=== PATIENT | female | born 1955 | race African-American/Black ===

== ENCOUNTER 2016-06-16 15:32 | Inpatient (IN) ==
[2016-06-16] MEDS ORDERED: MAGNESIUM SULF RIDER 2 GM in PREMIX 1 EACH IV PRN (17:09)
[2016-06-16] MEDS ORDERED: ACETAMINOPHEN 325 MG TABLET PO PRN (17:09)
[2016-06-16] MEDS ORDERED: guaiFENesin/DM ER 600-30 MG TABLET PO PRN (17:09)
[2016-06-16] MEDS ORDERED: BISACODYL 5 MG TABLET PO PRN (17:09)
[2016-06-16] MEDS ORDERED: DOCUSATE SODIUM 100 MG CAPSULE PO PRN (17:09)
[2016-06-16] MEDS ORDERED: MAGNESIUM SULF RIDER 4 GM in PREMIX 1 EACH IV PRN (17:09)
[2016-06-16] MEDS ORDERED: ONDANSETRON 4 MG/2 ML VIAL IV PRN (17:09)
[2016-06-16] MEDS ORDERED: GLUCAGON 1 MG VIAL IM PRN (17:14)
[2016-06-16] MEDS ORDERED: DEXTROSE 50% 25 GM/50 ML VIAL IV PRN (17:14)
[2016-06-16] MEDS ORDERED: ENOXAPARIN 40 MG/0.4 ML SYRINGE SUBCUT SCH (17:30)
[2016-06-16] MEDS ORDERED: PROMETHAZINE 25 MG TABLET PO PRN (17:33)
--- NOTE | 2016-06-16 17:45 | Event Note ---
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 She is on chronic anticoagulation with warfarin. She states that she was sent over from the office today for worsening symptoms I reviewed Dr. Grande's note. I was called to be notified by the nurses that the patient was admitted to me and there was no IV access. I came saw and examined the patient. I have reviewed the data available at this time there is a suboptimal chest x-ray where most of the lung zepeda are not well seen but I do not see a lot of pulmonary edema is impressive cardiomegaly. All her labs are pending. She states she has been taking her medications. I cannot assess JVP due to body habitus she does not have lower extremity edema. She has known subclavian vein stenosis previously had an ICD placed by Dr. Dale. She is tachypneic and has resting tachycardia. She states that she is having some mild substernal chest discomfort. She states she initially thought it was the heart monitor that was sitting on her but she now thinks it may be something more. At this time we do not have IV access I will consult interventional radiology for a PICC line. Hopefully can be done this evening if not we will increase her medications. I think we must consider the fact that she could have potentially had pulmonary embolism she is at high risk. I will wait and see what her INR is. If it is subtherapeutic, probably would recommend CT scanning. I will also check a blood gas. Brief physical exam I do not hear any rhonchi. Rales are also not audible. She does not have lower extremity edema I cannot assess JVD she has a resting tachycardia and her PMI is obviously laterally displaced. Her abdominal exam is soft chest wall pain is not reproducible. She has advanced rheumatoid arthritis which is a challenge as well. She is on methotrexate which he broadens the diagnosis of potential problems.
[2016-06-16 18:09] LABS: ABG Base Excess -1.2 MMOL/L (-2.5-2.5); ABG HCO3 23.4 MMOL/L (20-26); ABG Oxygen Saturation 96.4 % (95-100); ABG PCO2 26.3 MM HG (35-48); ABG PH 7.496 (7.35-7.45); ABG PO2 80.4 MM HG (80-95); ABG TCO2 17.1 MMOL/L (23-27)
[2016-06-16] MEDS: FUROSEMIDE 40 MG/4 ML VIAL IV SCH (18:21)
--- NOTE | 2016-06-16 18:50 | XRay Report ---
XR chest 1V portable Indication: Shortness of breath. Chest one view: Comparison 12/17/15. Cardiomegaly is worse than previous with stable AICD. Hilar prominence again noted. Increased reticular markings of the lungs noted, likely mild edema. Left lung base is obscured, in part due to obesity. It is difficult to exclude infiltrate. Impression: CHF decompensation. Cannot exclude left basilar pneumonia. PROCEDURE INTERPRETED AT [facility] DEPARTMENT OF RADIOLOGY Final Report Signed by: Aman Nguyen M.D.
[2016-06-16] MEDS ORDERED: metOLazone 5 MG TABLET PO SCH (19:00)
[2016-06-16 19:27] LABS: Albumin 4.3 G/DL (3.4-5.0); Bilirubin,Total 1.2 MG/DL (0.2-1.0); Calcium 9.6 MG/DL (8.5-10.1); Magnesium 2.2 MG/DL (1.8-2.4); Osmolality,Calculated 286.5 MOS/KG (273-304); Potassium 3.9 MMOL/L (3.5-5.1); Total Protein 7.8 G/DL (6.4-8.3)
[2016-06-16 20:51] LABS: INR 1.4; PT Patient Result 14.8 SECS
[2016-06-16] MEDS: HYDROXYCHLOROQUINE 200 MG TABLET PO SCH (21:13)
[2016-06-16] MEDS: MAGNESIUM OXIDE 400 MG TABLET PO SCH ×2 (21:13→21:14)
[2016-06-16] MEDS: POTASSIUM CHLORIDE 20 MEQ TABLET PO SCH (21:13)
[2016-06-16] MEDS: NORTRIPTYLINE 25 MG CAPSULE PO SCH (21:13)
[2016-06-16] MEDS: SPIRONOLACTONE 25 MG TABLET PO SCH (21:13)
[2016-06-16] MEDS: INSULIN REGULAR 100 UNIT/ML SUBCUT SCH (21:14)
[2016-06-16] MEDS: oxyCODONE IR 5 MG TABLET PO PRN (21:29)
[2016-06-16] MEDS: ALPRAZolam 0.5 MG TABLET PO PRN (21:29)
[2016-06-16 22:38] LABS: Apearance,Urine CLEAR (Clear); Bacteria,Urine Occasional /HPF (Few); Bilirubin,Urine Negative (Negative); Blood, Urine Negative (Negative); Glucose,Urine (UA) Negative (Negative); Hyaline Casts,Urine 14 /LPF (0-3); Ketones,Urine Negative (Negative); Mucus,Urine Occasional /LPF (Occasional); Nitrite,Urine Negative (Negative); Protein,Urine Negative; RBC,Urine <1 /HPF (0-4); Squamous Epithelial Cell,Urine Occasional /HPF (0-10); Urine Color Yellow (Yellow); Urine Specific Gravity 1.006 (1.001-1.035); Urine Urobilinogen < 2.0 EU/DL (0.2-1.0); WBC,Urine <1 /HPF (0-6)
[2016-06-16] MEDS: WARFARIN 7.5 MG TABLET PO SCH (23:06)
[2016-06-17] MEDS: ZALEPLON 5 MG CAPSULE PO PRN ×2 (00:59→21:50)
[2016-06-17 05:27] LABS: Albumin 3.7 G/DL (3.4-5.0); Bilirubin,Total 1.1 MG/DL (0.2-1.0); Calcium 8.7 MG/DL (8.5-10.1); Magnesium 2.1 MG/DL (1.8-2.4); Osmolality,Calculated 288.3 MOS/KG (273-304); Risk Ratio 3.34; Total Protein 6.7 G/DL (6.4-8.3); VLDL CHOLESTEROL 27.4 MG/DL
--- NOTE | 2016-06-17 07:13 | EKG Report ---
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
[2016-06-17] MEDS ORDERED: OMEPRAZOLE 20 MG CAPSULE PO SCH (09:00)
[2016-06-17] MEDS: FUROSEMIDE 40 MG/4 ML VIAL IV SCH ×2 (09:12→15:50)
[2016-06-17] MEDS: ESTRADIOL 1 MG TABLET PO SCH (09:12)
[2016-06-17] MEDS: INSULIN REGULAR 100 UNIT/ML SUBCUT SCH ×4 (09:12→21:51)
[2016-06-17] MEDS: DESITIN 4OZ/NYSTATIN 15 GRAM MIXTURE PASTE TOP SCH ×2 (09:12→21:52)
[2016-06-17] MEDS: ALLOPURINOL 100 MG TABLET PO SCH (09:13)
[2016-06-17] MEDS: CHOLECALCIFEROL 1,000 UNIT TABLET PO SCH (09:13)
[2016-06-17] MEDS: POTASSIUM CHLORIDE 20 MEQ TABLET PO SCH ×4 (09:14→21:51)
[2016-06-17] MEDS: PRAVASTATIN 20 MG TABLET PO SCH (09:14)
[2016-06-17] MEDS: SPIRONOLACTONE 25 MG TABLET PO SCH ×2 (09:14→21:51)
[2016-06-17] MEDS: TOPIRAMATE 25 MG TABLET PO SCH (09:14)
[2016-06-17] MEDS: PANTOPRAZOLE 40 MG TABLET PO SCH (09:14)
[2016-06-17] MEDS: HYDROXYCHLOROQUINE 200 MG TABLET PO SCH ×2 (09:14→21:54)
[2016-06-17] MEDS: MAGNESIUM OXIDE 400 MG TABLET PO SCH ×4 (09:15→21:52)
[2016-06-17] MEDS: MELOXICAM 7.5 MG TABLET PO SCH (09:15)
[2016-06-17] MEDS: FOLIC ACID 1 MG TABLET PO SCH (09:15)
[2016-06-17] MEDS: DULoxetine 30 MG CAPSULE PO SCH (09:15)
[2016-06-17] MEDS: NEBIVOLOL 5 MG TABLET PO SCH (09:16)
[2016-06-17] MEDS: POLYETHYLENE GLYCOL POWDER 17 GM PACK PO SCH (09:17)
--- NOTE | 2016-06-17 11:05 | Cardiology Progress Note ---
Cardiology - PN: Subj Interval history: Cardiology note 61-year-old woman with progressive shortness of breath. Patient is 5 feet 9 and weighs 273 pounds. She weighed 350 pounds in January 2016. Patient has obstructive sleep apnea diagnosed in 2003. She is noncompliant with her mask which has broke. History of DVT on chronic Coumadin. INR subtherapeutic 1.4. Chest x-ray shows moderate cardiomegaly CHF. Patient denies fever cough or sputum production. I do not think this is a pneumonia superimposed. BNP level 1470 Patient quit smoking January 30, 2016 but did smoke 1-1-1/2 packs a day since age 22. She has rheumatoid arthritis and takes Plaquenil She is quite sedentary and has limited mobility. EKG shows sinus rhythm with right axis deviation poor R-wave progression ST-T wave changes. Status post ICD. History hypertrophic obstructive cardiomyopathy Blood pressure 116/80 flat neck veins no carotid bruit decreased breath sounds rhonchi in both bases regular rhythm soft systolic ejection murmur upper left sternal border no AI heard both legs are tender but she has rheumatoid arthritis and neuropathy Lab data INR 1.4 Pro time 14.8 Creatinine 1.8 BUN [address] Hollis for CPAP Venous Doppler of the legs IV Lasix Echo Doppler Increase Coumadin Lovenox BMP and pro time/INR in a.m. Exam (Progress Note) - Constitutional Vitals: Period Temp Pulse Resp BP Sys/Fuchs Pulse Ox Last 24 Hr 96.4 F-97.7 F 97-107 18-20 93-138/55-69 90-100 Result/EKG - Labs CBC & BMP: 06/17/16 03:58 Labs: Laboratory Results - last 24 hr 06/16/16 06/16/16 06/16/16 17:32 17:49 18:17 INR PT Patient/Control Mix ABG pH 7.496 H ABG pCO2 26.3 L ABG pO2 80.4 ABG HCO3 23.4 ABG Total CO2 17.1 L ABG O2 Saturation 96.4 ABG Base Excess -1.2 Sodium Potassium Chloride Carbon Dioxide Anion Gap BUN Creatinine GFR Calculation BUN/Creatinine Ratio Glucose POC Glucose 130 H Calculated Osmolality Calcium Magnesium Total Bilirubin AST ALT Alkaline Phosphatase B-Natriuretic Peptide 1354 H Total Protein Albumin Globulin Albumin/Globulin Ratio Triglycerides Cholesterol LDL Cholesterol VLDL Cholesterol HDL Cholesterol Heart Disease Risk Ratio TSH 3rd Generation Urine Color Urine Appearance Urine pH Ur Specific Shepherd Urine Protein Urine Glucose (UA) Urine Ketones Urine Blood Urine Nitrate Urine Bilirubin Urine Urobilinogen Urine Leukocytes Urine RBC Urine WBC Ur Squamous Epith Cells Urine Bacteria Hyaline Casts Urine Mucus Ur Culture Indicated? 06/16/16 06/16/16 06/16/16 18:18 18:18 20:25 INR 1.4 PT Patient/Control Mix 14.8 ABG pH ABG pCO2 ABG pO2 ABG HCO3 ABG Total CO2 ABG O2 Saturation ABG Base Excess Sodium 139 Potassium 3.9 Chloride 99 Carbon Dioxide 25 Anion Gap 18.9 H BUN 34 H Creatinine 2.00 H GFR Calculation 42 BUN/Creatinine Ratio 17.00 Glucose 132 H POC Glucose Calculated Osmolality 286.5 Calcium 9.6 Magnesium 2.2 Total Bilirubin 1.20 H AST 22 ALT 22 Alkaline Phosphatase 132 H B-Natriuretic Peptide Total Protein 7.8 Albumin 4.3 Globulin 3.5 Albumin/Globulin Ratio 1.2 Triglycerides Cholesterol LDL Cholesterol VLDL Cholesterol HDL Cholesterol Heart Disease Risk Ratio TSH 3rd Generation 9.400 H Urine Color Urine Appearance Urine pH Ur Specific Shepherd Urine Protein Urine Glucose (UA) Urine Ketones Urine Blood Urine Nitrate Urine Bilirubin Urine Urobilinogen Urine Leukocytes Urine RBC Urine WBC Ur Squamous Epith Cells Urine Bacteria Hyaline Casts Urine Mucus Ur Culture Indicated? 06/16/16 06/16/16 06/17/16 20:48 21:19 03:58 INR PT Patient/Control Mix ABG pH ABG pCO2 ABG pO2 ABG HCO3 ABG Total CO2 ABG O2 Saturation ABG Base Excess Sodium 141 Potassium 3.0 L Chloride 98 Carbon Dioxide 27 Anion Gap 19.0 H BUN 37 H Creatinine 1.80 H GFR Calculation 48 BUN/Creatinine Ratio 20.00 Glucose 89 POC Glucose 144 H Calculated Osmolality 288.3 Calcium 8.7 Magnesium 2.1 Total Bilirubin 1.10 H AST 11 ALT 21 Alkaline Phosphatase 118 H B-Natriuretic Peptide Total Protein 6.7 Albumin 3.7 Globulin 3.0 Albumin/Globulin Ratio 1.2 Triglycerides 137 Cholesterol 117 LDL Cholesterol 66.0 VLDL Cholesterol 27.4 HDL Cholesterol 35 L Heart Disease Risk Ratio 3.34 TSH 3rd Generation Urine Color Yellow Urine Appearance Clear Urine pH 6.0 Ur Specific Shepherd 1.006 Urine Protein Negative Urine Glucose (UA) Negative Urine Ketones Negative Urine Blood Negative Urine Nitrate Negative Urine Bilirubin Negative Urine Urobilinogen < 2.0 H Urine Leukocytes Negative Urine RBC <1 Urine WBC <1 Ur Squamous Epith Cells Occasional Urine Bacteria Occasional Hyaline Casts 14 Urine Mucus Occasional Ur Culture Indicated? Not indicated 06/17/16 06/17/16 03:58 07:57 INR PT Patient/Control Mix ABG pH ABG pCO2 ABG pO2 ABG HCO3 ABG Total CO2 ABG O2 Saturation ABG Base Excess Sodium Potassium Chloride Carbon Dioxide Anion Gap BUN Creatinine GFR Calculation BUN/Creatinine Ratio Glucose POC Glucose 103 Calculated Osmolality Calcium Magnesium Total Bilirubin AST ALT Alkaline Phosphatase B-Natriuretic Peptide 1470 H Total Protein Albumin Globulin Albumin/Globulin Ratio Triglycerides Cholesterol LDL Cholesterol VLDL Cholesterol HDL Cholesterol Heart Disease Risk Ratio TSH 3rd Generation Urine Color Urine Appearance Urine pH Ur Specific Shepherd Urine Protein Urine Glucose (UA) Urine Ketones Urine Blood Urine Nitrate Urine Bilirubin Urine Urobilinogen Urine Leukocytes Urine RBC Urine WBC Ur Squamous Epith Cells Urine Bacteria Hyaline Casts Urine Mucus Ur Culture Indicated?
[2016-06-17 12:29] LABS: INR 1.3; PT Patient Result 13.9 SECS
[2016-06-17] MEDS: ENOXAPARIN 100 MG/ML SYRINGE SUBCUT SCH (13:11)
--- NOTE | 2016-06-17 13:18 | Ultrasound Report ---
Venous Doppler ultrasound bilateral lower extremities Indication: Swelling, shortness of breath Comparison: None available Findings: No evidence of echogenic, noncompressible thrombus seen in the visualized veins of the extremities. Color Doppler venous waveform pattern is within normal limits. Impression: No evidence of deep venous thrombosis. Ultrasound images stored and captured. PROCEDURE INTERPRETED AT [facility] DEPARTMENT OF RADIOLOGY Final Report Signed by: Dr. Franklyn Patiño
--- NOTE | 2016-06-17 14:25 | Post Interventional Procedure ---
Pre-op diagnosis: No PIV access, obesity Post-op diagnosis: same Procedure: PICC RUE Flouroscopy: 0.5 min Radiologist: Aman Nguyen Anesthesia: local Specimens: none sent Estimated blood loss: none Complications: none Condition: stable Assessment and Plan - Time spent with patient Time spent with patient: Less than 30 minutes
--- NOTE | 2016-06-17 14:39 | Ultrasound Report ---
IR PICC line insertion, US guide vascular access Indication: Obesity. CHF and COPD. IV medication requirements. No peripheral IV access. PICC LINE Description: A formal timeout was performed. Maximum sterile barrier technique was used. Sonographic evaluation of the right upper extremity demonstrates patent and compressible basilic vein. The upper arm was prepped and draped in sterile fashion. 3 cc 1% lidocaine was administered subcutaneously. Under sonographic guidance, a micropuncture needle was advanced into the vein. A captured sonographic image documents the position of the needle. Needle was exchanged over a wire for a peel-away sheath. A dual lumen power PICC, cut to 43 cm, was advanced over the wire until the tip was at the RA-SVC junction. The position of the catheter was confirmed with fluoroscopic guidance and an image stored in PACS. The wire and sheath were removed. Both ports of the PICC were aspirated and flushed with heparinized saline. The device was secured with a StatLock. Fluoroscopy: 0.5 minutes. Impression: PICC line ready for immediate use. Routine catheter care. PROCEDURE INTERPRETED AT [facility] DEPARTMENT OF RADIOLOGY Final Report Signed by: Aman Nguyen M.D.
[2016-06-17] MEDS ORDERED: POTASSIUM CHLORIDE 20 MEQ TABLET PO ONE (15:26)
[2016-06-17] MEDS ORDERED: WARFARIN 5 MG TABLET PO ONE (18:00)
[2016-06-17] MEDS ORDERED: WARFARIN 5 MG TABLET PO SCH (18:00)
[2016-06-17] MEDS: NORTRIPTYLINE 25 MG CAPSULE PO SCH (21:50)
[2016-06-17] MEDS: ALPRAZolam 0.5 MG TABLET PO PRN (21:51)
[2016-06-18] MEDS: ENOXAPARIN 100 MG/ML SYRINGE SUBCUT SCH ×3 (00:43→22:50)
[2016-06-18] MEDS: oxyCODONE IR 5 MG TABLET PO PRN (04:39)
[2016-06-18 05:33] LABS: INR 1.4; PT Patient Result 15.4 SECS
[2016-06-18 06:01] LABS: Osmolality,Calculated 285.8 MOS/KG (273-304)
[2016-06-18] MEDS: INSULIN REGULAR 100 UNIT/ML SUBCUT SCH ×4 (09:13→20:46)
[2016-06-18] MEDS: FUROSEMIDE 40 MG/4 ML VIAL IV SCH ×2 (09:13→17:29)
[2016-06-18] MEDS: PANTOPRAZOLE 40 MG TABLET PO SCH (09:14)
[2016-06-18] MEDS: ESTRADIOL 1 MG TABLET PO SCH (09:15)
[2016-06-18] MEDS: MELOXICAM 7.5 MG TABLET PO SCH (09:15)
[2016-06-18] MEDS: SPIRONOLACTONE 25 MG TABLET PO SCH ×2 (09:15→20:46)
[2016-06-18] MEDS: FOLIC ACID 1 MG TABLET PO SCH (09:16)
[2016-06-18] MEDS: DULoxetine 30 MG CAPSULE PO SCH (09:16)
[2016-06-18] MEDS: MAGNESIUM OXIDE 400 MG TABLET PO SCH ×3 (09:16→20:51)
[2016-06-18] MEDS: POTASSIUM CHLORIDE 20 MEQ TABLET PO SCH ×4 (09:16→20:51)
[2016-06-18] MEDS: CHOLECALCIFEROL 1,000 UNIT TABLET PO SCH (09:16)
[2016-06-18] MEDS: NEBIVOLOL 5 MG TABLET PO SCH (09:17)
[2016-06-18] MEDS: TOPIRAMATE 25 MG TABLET PO SCH (09:17)
[2016-06-18] MEDS: PRAVASTATIN 20 MG TABLET PO SCH (09:18)
[2016-06-18] MEDS: ALLOPURINOL 100 MG TABLET PO SCH (09:18)
[2016-06-18] MEDS: HYDROXYCHLOROQUINE 200 MG TABLET PO SCH ×2 (09:18→20:51)
[2016-06-18] MEDS: DESITIN 4OZ/NYSTATIN 15 GRAM MIXTURE PASTE TOP SCH ×2 (09:19→20:57)
[2016-06-18] MEDS: POLYETHYLENE GLYCOL POWDER 17 GM PACK PO SCH (09:19)
--- NOTE | 2016-06-18 09:57 | Cardiology Progress Note ---
Cardiology - PN: Subj Interval history: Cardiology note 61-year-old woman with progressive shortness of breath with CHF and leg pain. Telemetry shows sinus rhythm O2 sat 95 on 2 L cannula Blood pressure 90/66 Decreased breath sounds but fairly clear Regular rhythm distant tones soft systolic murmur Abdomen soft benign 1+ leg edema Lab data today INR 1.4 Pro time 15.4 Sodium 137 potassium 4.0 chloride 96 CO2 28 BUN 46 creatinine 2.20 glucose 108 Venous Doppler studies of the legs negative for DVT Impression Obstructive sleep apnea diagnosed 2003, noncompliant with CPAP Cardiomegaly and CHF BNP level 1470 Rheumatoid arthritis on Plaquenil Longtime smoker, over 1 pack per day since age 22, just quit January 30, 2016 Status post defibrillator History hypertrophic cardiomyopathy History of DVT on chronic Coumadin Subtherapeutic pro time Plan Dr. Heller has been consulted for untreated obstructive sleep apnea Increasing Coumadin dose and continue Lovenox PT INR in a.m. Echo Doppler DC Bystolic Exam (Progress Note) - Constitutional Vitals: Period Temp Pulse Resp BP Sys/Fuchs Pulse Ox Last 24 Hr 96.5 F-98.4 F 90-105 16-20 84-101/55-80 91-97 Result/EKG - Labs CBC & BMP: 06/18/16 04:29 Labs: Laboratory Results - last 24 hr 06/17/16 06/17/16 06/17/16 11:57 12:07 16:06 INR 1.3 PT Patient/Control Mix 13.9 Sodium Potassium Chloride Carbon Dioxide Anion Gap BUN Creatinine GFR Calculation BUN/Creatinine Ratio Glucose POC Glucose 115 H 132 H Calculated Osmolality Calcium 06/17/16 06/18/16 06/18/16 20:42 04:29 05:20 INR 1.4 PT Patient/Control Mix 15.4 Sodium 137 Potassium 4.0 Chloride 96 L Carbon Dioxide 28 Anion Gap 17.0 H BUN 46 H Creatinine 2.20 H GFR Calculation 37 BUN/Creatinine Ratio 20.00 Glucose 108 H POC Glucose 124 H Calculated Osmolality 285.8 Calcium 9.0
--- NOTE | 2016-06-18 16:30 | ECHO Report ---
Jose CruzTelma Exam Date: 06/17/2016 14:47 Referring Physician: Technologist: Eva Villegas RDCS Age: 61 Ht (in): Wt (lb): Gender: F Exam Location: [facility] Echo Indications: Shortness of breath BP: / HR: Rhythm: Sinus Technical Quality: Average IMPRESSIONS Left ventricular ejection fraction is estimated at 10%. Advanced diastolic dysfunction. Mild left ventricular hypertrophy. Tricuspid regurgitation velocities suggest a PAP of 46 mmHg. Four chamber cardiac enlargement MEASUREMENTS (Male / Female) Normal Values 2D ECHO LV Diastolic Diameter PLAX 6.1 cm 4.2 - 5.9 / 3.9 - 5.3 cm LV Systolic Diameter PLAX 6.0 cm LV Fractional Shortening PLAX 1.6 % IVS Diastolic Thickness 1.1 cm 0.6 - 1.0 / 0.6 - 0.9 cm LVPW Diastolic Thickness 1.1 cm 0.6 - 1.0 / 0.6 - 0.9 cm RV Internal Dim ED PLAX 4.1 cm Aortic Root Diameter 3.5 cm LA Systolic Diameter LX 5.5 cm 3.0 - 4.0 / 2.7 - 3.8 cm DOPPLER TR Peak Velocity 300.0 cm/s TR Peak Gradient 36.0 mmHg FINDINGS Left Ventricle Moderately increased left ventricular cavity size. Mild left ventricular hypertrophy. Left ventricular ejection fraction is estimated at 10%. Advanced diastolic dysfunction. Right Ventricle Mildly increased right ventricular size. Pacemaker wire visualized in the right ventricle. Right Atrium Moderately increased right atrial size. Pacemaker wire in the right atrial cavity. Left Atrium Moderately increased left atrial size. Mitral Valve Thickened mitral valve. Mild mitral annular calcification. Mild mitral valve regurgitation. Aortic Valve Morphologically normal aortic valve without significant sclerosis or stenosis. There is no aortic regurgitation. Tricuspid Valve Morphologically normal tricuspid valve. Mild tricuspid valve regurgitation. Tricuspid regurgitation velocities suggest a PAP of 46 mmHg. Pulmonic Valve Morphologically normal pulmonic valve. Mild pulmonary valve regurgitation. Pericardium Normal pericardium without effusion. Aorta Normal ascending aorta dimension. Kylah Kim (Electronically Signed) Final Date: 17 June 2016 16:37
--- NOTE | 2016-06-18 16:31 | ECHO Report ---
Jose CruzTelma Exam Date: 06/18/2016 11:36 Referring Physician: Technologist: Demetria GARCIA Age: 61 Ht (in): Wt (lb): Gender: F Exam Location: [facility] Echo Indications: ICD, CHF, DM, HTN, Hyperlipidemia, SOB BP: / HR: Rhythm: Sinus Technical Quality: Technically difficult study IMPRESSIONS Severely dilated left ventricle with ejection fraction approximately 15% and global hypokinesis. Grade 3/4 diastolic dysfunction. Four-chamber cardiac enlargement ICD wire seen in the right ventricleTricuspid regurgitation velocities suggest a RVSP of 38 mmHg plus the right atrial pressure. MEASUREMENTS (Male / Female) Normal Values 2D ECHO LV Diastolic Diameter PLAX 6.1 cm 4.2 - 5.9 / 3.9 - 5.3 cm LV Systolic Diameter PLAX 5.1 cm LV Fractional Shortening PLAX 15.7 % IVS Diastolic Thickness 1.9 cm 0.6 - 1.0 / 0.6 - 0.9 cm LVPW Diastolic Thickness 1.7 cm 0.6 - 1.0 / 0.6 - 0.9 cm RV Internal Dim ED PLAX 4.1 cm Aortic Root Diameter 2.9 cm LA Systolic Diameter LX 3.7 cm 3.0 - 4.0 / 2.7 - 3.8 cm DOPPLER TR Peak Velocity 309.0 cm/s TR Peak Gradient 38.2 mmHg FINDINGS Left Ventricle Severely dilated left ventricle with ejection fraction approximately 15% and global hypokinesis. Grade 3/4 diastolic dysfunction. Right Ventricle Moderately increased right ventricular size. Right Atrium Moderately increased right atrial size. Left Atrium Moderately increased left atrial size. Mitral Valve Mildly thickened mitral valve with mild - moderate mitral regurgitation. Aortic Valve Aortic valve sclerosis without stenosis or regurgitation. Tricuspid Valve Morphologically normal tricuspid valve. [id number] tricuspid valve regurgitation. Tricuspid regurgitation velocities suggest a RVSP of 38mmHg + RAP. Pulmonic Valve Pulmonic valve not well visualized. [id number] pulmonary valve regurgitation. Pericardium No pericardial effusion. Aorta Normal size aortic root and proximal ascending aorta. Kylah Kim (Electronically Signed) Final Date: 18 June 2016 15:07
[2016-06-18] MEDS ORDERED: WARFARIN 5 MG TABLET PO ONE (18:00)
[2016-06-18] MEDS: ALPRAZolam 0.5 MG TABLET PO PRN (20:50)
[2016-06-18] MEDS: ZALEPLON 5 MG CAPSULE PO PRN (20:50)
[2016-06-18] MEDS: NORTRIPTYLINE 25 MG CAPSULE PO SCH (20:51)
[2016-06-19] MEDS: ZALEPLON 5 MG CAPSULE PO PRN (00:52)
[2016-06-19 05:08] LABS: INR 1.7; PT Patient Result 18.2 SECS
[2016-06-19 05:44] LABS: Calcium 9.1 MG/DL (8.5-10.1)
--- NOTE | 2016-06-19 08:57 | Cardiology Progress Note ---
Cardiology - PN: Subj Interval history: Cardiology note 61-year-old woman with progressive shortness of breath with CHF and leg pain. Telemetry shows a sinus rhythm in the 80s Blood pressure 100/60 in the left arm by me O2 sat 98 on 2 L Decreased breath sounds few rhonchi Regular rhythm faint systolic murmur upper right sternal border Abdomen soft benign Trace leg edema Echo Doppler by Dr. 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 Status post defibrillator. History of DVT on chronic Coumadin with subtherapeutic pro time on admission Chronic renal failure. Baseline creatinine 2.2 BUN 46 on June 18, 2016. Creatinine today is up to 3.[address] Hollis has been consulted for untreated obstructive sleep apnea BMP in a.m. and pro time INR DC spironolactone Lasix holiday today and reassess tomorrow. Increasing Coumadin dose and continue Lovenox Exam (Progress Note) - Constitutional Vitals: Period Temp Pulse Resp BP Sys/Fuchs Pulse Ox Last 24 Hr 96.6 F-97.9 F 95-100 18-20 80-124/42-75 96-100 Result/EKG - Labs CBC & BMP: 06/19/16 04:00 Labs: Laboratory Results - last 24 hr 06/18/16 06/18/16 06/18/16 07:42 11:26 15:55 INR PT Patient/Control Mix Sodium Potassium Chloride Carbon Dioxide Anion Gap BUN Creatinine GFR Calculation BUN/Creatinine Ratio Glucose POC Glucose 103 173 H 150 H Calculated Osmolality Calcium 06/18/16 06/19/16 06/19/16 19:28 04:00 04:00 INR 1.7 PT Patient/Control Mix 18.2 Sodium 136 Potassium 5.0 Chloride 96 L Carbon Dioxide 26 Anion Gap 19.0 H BUN 56 H D Creatinine 3.00 H GFR Calculation 26 BUN/Creatinine Ratio 18.00 Glucose 121 H POC Glucose 121 H Calculated Osmolality 288.0 Calcium 9.1
[2016-06-19] MEDS: INSULIN REGULAR 100 UNIT/ML SUBCUT SCH ×4 (09:18→20:56)
[2016-06-19] MEDS: SPIRONOLACTONE 25 MG TABLET PO SCH ×2 (09:19→20:56)
[2016-06-19] MEDS: DULoxetine 30 MG CAPSULE PO SCH (09:20)
[2016-06-19] MEDS: CHOLECALCIFEROL 1,000 UNIT TABLET PO SCH (09:20)
[2016-06-19] MEDS: PRAVASTATIN 20 MG TABLET PO SCH (09:20)
[2016-06-19] MEDS: PANTOPRAZOLE 40 MG TABLET PO SCH (09:20)
[2016-06-19] MEDS: POTASSIUM CHLORIDE 20 MEQ TABLET PO SCH ×5 (09:20→20:56)
[2016-06-19] MEDS: HYDROXYCHLOROQUINE 200 MG TABLET PO SCH ×2 (09:21→20:57)
[2016-06-19] MEDS: MAGNESIUM OXIDE 400 MG TABLET PO SCH ×2 (09:21→20:56)
[2016-06-19] MEDS: MELOXICAM 7.5 MG TABLET PO SCH (09:21)
[2016-06-19] MEDS: ESTRADIOL 1 MG TABLET PO SCH (09:21)
[2016-06-19] MEDS: TOPIRAMATE 25 MG TABLET PO SCH (09:21)
[2016-06-19] MEDS: FOLIC ACID 1 MG TABLET PO SCH (09:21)
[2016-06-19] MEDS: DESITIN 4OZ/NYSTATIN 15 GRAM MIXTURE PASTE TOP SCH ×2 (09:22→20:57)
[2016-06-19] MEDS: POLYETHYLENE GLYCOL POWDER 17 GM PACK PO SCH (09:22)
[2016-06-19] MEDS: ALLOPURINOL 100 MG TABLET PO SCH (09:23)
[2016-06-19] MEDS: FUROSEMIDE 40 MG/4 ML VIAL IV SCH (11:20)
[2016-06-19] MEDS: ENOXAPARIN 100 MG/ML SYRINGE SUBCUT SCH (13:43)
[2016-06-19] MEDS: WARFARIN 7.5 MG TABLET PO SCH (17:12)
[2016-06-19] MEDS ORDERED: WARFARIN 5 MG TABLET PO ONE (18:00)
[2016-06-19] MEDS: NORTRIPTYLINE 25 MG CAPSULE PO SCH (20:57)
[2016-06-20] MEDS: ALPRAZolam 0.5 MG TABLET PO PRN ×2 (00:26→20:57)
[2016-06-20] MEDS: ENOXAPARIN 100 MG/ML SYRINGE SUBCUT SCH ×2 (00:26→13:32)
[2016-06-20 05:45] LABS: INR 2.6
[2016-06-20 05:54] LABS: PT Patient Result 28.7 SECS
[2016-06-20 06:04] LABS: Calcium 9.3 MG/DL (8.5-10.1); Magnesium 3.1 MG/DL (1.8-2.4); Osmolality,Calculated 286.2 MOS/KG (273-304); Potassium 5.4 MMOL/L (3.5-5.1)
[2016-06-20] MEDS: CHOLECALCIFEROL 1,000 UNIT TABLET PO SCH (09:40)
[2016-06-20] MEDS: POLYETHYLENE GLYCOL POWDER 17 GM PACK PO SCH (09:40)
[2016-06-20] MEDS: MELOXICAM 7.5 MG TABLET PO SCH (09:41)
[2016-06-20] MEDS: DULoxetine 30 MG CAPSULE PO SCH (09:41)
[2016-06-20] MEDS: HYDROXYCHLOROQUINE 200 MG TABLET PO SCH ×2 (09:41→20:54)
[2016-06-20] MEDS: PANTOPRAZOLE 40 MG TABLET PO SCH (09:42)
[2016-06-20] MEDS: ALLOPURINOL 100 MG TABLET PO SCH (09:42)
[2016-06-20] MEDS: FOLIC ACID 1 MG TABLET PO SCH (09:42)
[2016-06-20] MEDS: PRAVASTATIN 20 MG TABLET PO SCH (09:42)
[2016-06-20] MEDS: DESITIN 4OZ/NYSTATIN 15 GRAM MIXTURE PASTE TOP SCH ×2 (09:43→20:58)
[2016-06-20] MEDS: ESTRADIOL 1 MG TABLET PO SCH (09:43)
[2016-06-20] MEDS: MAGNESIUM OXIDE 400 MG TABLET PO SCH ×2 (09:46→20:55)
[2016-06-20] MEDS: POTASSIUM CHLORIDE 20 MEQ TABLET PO SCH ×4 (09:46→20:55)
[2016-06-20] MEDS: INSULIN REGULAR 100 UNIT/ML SUBCUT SCH ×4 (09:47→20:55)
[2016-06-20] MEDS: SPIRONOLACTONE 25 MG TABLET PO SCH ×2 (09:47→21:50)
[2016-06-20] MEDS: TOPIRAMATE 25 MG TABLET PO SCH (09:47)
--- NOTE | 2016-06-20 12:16 | Sleep Medicine Consult ---
Assessment and Plan (1) Obstructive sleep apnea Status: Acute Assessment and plan: Her say will need to be reevaluated. She has lost approximately 80 pounds since her diagnosis. She also now has a severe cardiomyopathy. She does continue to snore but it does not seem to be as bad as it has been in the past. She certainly could have underlying central sleep apnea. We will start with HST evaluation tonight and follow-up on those results. Current Visit: Yes (2) Hypertension Status: Chronic Assessment and plan: The prevalence rate for obstructive sleep apnea patients with hypertension is 35 %. That rate can be as high as 80% in patients who require 4 or more medications for blood pressure control. Current Visit: No (3) Diabetes Status: Chronic Assessment and plan: The prevalence rate for obstructive sleep apnea in patients with type 2 diabetes can be as high as 86%. Those patients with moderate to severe obstructive sleep apnea are at a greater risk for diabetic nephropathy and neuropathy. Compliance with CPAP therapy for these patients can lead to improvement in glycemic control and improvement in insulin sensitivity. Current Visit: No (4) CHF (congestive heart failure) Status: Acute Assessment and plan: Although CHF can be associated with both obstructive and central sleep apnea, the latter can be refractory to CPAP therapy and may require BiPAP. With the severity of her cardiomyopathy, she would not be a candidate for ASV therapy for primary central sleep apnea. If she still has predominantly obstructive sleep apnea, there is the potential that with CPAP therapy, we could see improvement in her ejection fraction and as well improvement symptomatically. CPAP therapy for CHF has been shown to decrease readmission rate related to CHF. We will start her evaluation with HST tonight and follow up at the [facility] sleep center with titration is indicated or further evaluation if necessary. Current Visit: No Qualifiers: Congestive heart failure type: systolic Congestive heart failure chronicity : acute on chronic Qualified Code(s): I50.23 - Acute on chronic systolic ( congestive) heart failure History of Present Illness Chief complaint: sleep apnea History of present illness: Ms. Billingsley is a 61 year old female with a remote history of obstructive sleep apnea diagnosed over 10 years ago. She was also CPAP for. Time and her machine quit. She has been without therapy since 2004. She is admitted now with problems related to severe cardiomyopathy and has an ejection fraction of less than 15% and evidence of pulmonary hypertension. She is treated with nocturnal O2 therapy that was prescribed by her primary care physician, Dr. Nick Collado. She does describe a history of snoring and abnormal breathing during sleep. She has nocturia as well, awakening up to 45 times a night to urinate. She has a delayed sleep schedule, often not falling asleep until 45 in the morning and sleeping until 5 the next afternoon. She does have discomfort of her legs and restlessness of her legs that disturb her sleep as well. Her [place] sleepiness score is 11. Home Medications Medication Instructions Recorded Confirmed Type Allopurinol 100 mg PO DAILY 04/30/15 06/16/16 History Alprazolam [Xanax] 1 mg PO TID PRN 04/30/15 06/16/16 History Cholecalciferol (Vitamin D3) 5,000 unit PO DAILY 04/30/15 06/16/16 History [Vitamin D3] Furosemide Tab [Lasix Tab] 80 mg PO BID 04/30/15 06/16/16 History Magnesium Oxide [Magox 400] 400 mg PO BID 04/30/15 06/16/16 History Meloxicam 15 mg PO DAILY 04/30/15 06/16/16 History Nebivolol [Bystolic] 2.5 mg PO DAILY 04/30/15 06/16/16 History Omeprazole 20 mg PO DAILY 04/30/15 06/16/16 History Polyethylene Glycol Powder 17 gm PO DAILY 04/30/15 06/16/16 History [Miralax] Potassium Chloride 20 meq PO QID 04/30/15 06/16/16 History Pravastatin [Pravachol] 20 mg PO DAILY 04/30/15 06/16/16 History Promethazine Tab [Phenergan Tab] 50 mg PO Q4HR PRN 04/30/15 06/16/16 History Spironolactone 50 mg PO BID 04/30/15 06/16/16 History Topiramate 25 mg PO DAILY 04/30/15 06/16/16 History metFORMIN [Glucophage] 500 mg PO DAILY W/BREAKFAST 04/30/15 06/16/16 History Nortriptyline [Pamelor] 50 mg PO BEDTIME 12/17/15 06/16/16 History Oxycodone HCl 15 mg PO QID PRN 12/17/15 06/16/16 History metOLazone [Zaroxolyn] 2.5 mg PO QOTHER DAY #20 tablet 12/22/15 06/16/16 Rx Duloxetine HCl [Duloxetine] 60 mg PO DAILY 06/16/16 06/16/16 History Estradiol [Estradiol Tab] 0.5 mg PO DAILY 06/16/16 06/16/16 History Folic Acid Tab 1 mg PO DAILY 06/16/16 06/16/16 History Furosemide Tab [Lasix Tab] 80 mg PO BID 06/16/16 06/16/16 History Hydroxychloroquine [Plaquenil] 200 mg PO BID 06/16/16 06/16/16 History Magnesium Oxide [Magnesium] 400 mg PO BID 06/16/16 06/16/16 History Methotrexate Tab 4 tablet PO QID 06/16/16 06/16/16 History Warfarin [Coumadin] 5 mg PO QOTHER DAY 06/16/16 06/16/16 History Warfarin [Coumadin] 7.5 mg PO QOTHER DAY 06/16/16 06/16/16 History Allergies Allergy/AdvReac Type Severity Reaction Status Date / Time codeine Allergy RASH Verified 08/13/14 07:52 Penicillins Allergy RASH Verified 08/13/14 07:52 Review of systems: Notable for unrefreshing sleep, fatigue, sleepiness, restless legs, nocturia, and lower extremity swelling. Exam (Pulmonay) H&P - Constitutional Vitals: Period Temp Pulse Resp BP Sys/Fuchs Pulse Ox Last 24 Hr 96.0 F-97.6 F 89-96 16-20 83-123/53-76 90-100 Exam: She is alert and responsive in no acute distress. Pupils equal round reactive to light and accommodation. Extraocular movements intact. Oropharynx with class IV Mallampati exam. Neck is large with circumference of 21 inches. She has no supraclavicular adenopathy. No thyromegaly or cervical adenopathy was noted. Chest was symmetrical breath sounds without focal wheezes, rhonchi, or rales. Cardiac exam reveals a regular rhythm without murmur or gallop. Abdomen obese nontender without palpable hepatosplenomegaly or mass. Extremities without clubbing cyanosis or edema. Neurologically, she is grossly intact. She moves all extremities with good strength and answered all questions appropriately. Medical,Surgical,& Family Hx - Medical History Cardio: History of: CHF, Hypertension, Pacemaker (02/22/2013- BI-V/ICD implant) Neurology: History of: Cerebrovascular Accident (02/22/2013), TIA (2013) No history of: Seizures Endocrine: History of: Diabetes Mellitus (NIDDM) Rheumatology: History of;: Rheumatoid Arthritis Respiratory: History of: Obstructive Sleep Apnea, Pulmonary Embolism Gastrointestinal: History of: Diverticulitis/ Diverticulosis, GERD Hematology: History of: Clotting Problems (DVT x 2) - Surgical History Cardiac Surgeries: Sugical HX of: Internal Defibrillator (02/22/2013) Abdominal Surgeries: Surgical HX of: Abdominal Surgery, Cholecystectomy, Colonoscopy, EGD, Hernia Repair (x2) Reproductive Surgeries: Surgical HX of;: Section - Family History Family History: Reports;: Family Heart Disease (mother), Family Hypertension ( mother, brother, sister) - Social History Smoking Status: Former smoker Results - Labs CBC & BMP: 06/20/16 04:26
--- NOTE | 2016-06-20 12:28 | Cardiology Progress Note ---
Bernie Castelan April RN, am scribing for, and in the presence of, Germain Nielsen MD 12:27. Assessment and Plan (1) Acute on chronic systolic congestive heart failure, NYHA class 4 Status: Acute Assessment and plan: She has a difficult problem due to her renal insufficiency as well as her severe left ventricular systolic dysfunction. Her creatinine and potassium drifted higher necessitating medication changes. We will recheck these tomorrow and try to optimize her medication as much as we can. Her left ventricular systolic function has declined over time. She is being evaluated for her sleep apnea. Hopefully treating this will be beneficial. Current Visit: Yes (2) History of automatic internal cardiac defibrillator (AICD) Status: Acute Current Visit: Yes (3) Obstructive sleep apnea Status: Acute Current Visit: Yes (4) CHF (congestive heart failure) Status: Acute Current Visit: No Qualifiers: Congestive heart failure type: systolic Congestive heart failure chronicity : acute on chronic Qualified Code(s): I50.23 - Acute on chronic systolic ( congestive) heart failure (5) Diabetes Status: Chronic Current Visit: No (6) Hyperlipidemia Status: Chronic Current Visit: No (7) Hypertension Status: Chronic Current Visit: No (8) NICM (nonischemic cardiomyopathy) Status: Chronic Current Visit: No Cardiology - PN: Subj Interval history: Resting in bed in no acute distress, oxygen in use via NBP. Denies chest pain, reports she is somewhat short of breath. She does complain of a headache and hand pain. She says the hand pain is related to her Lupus. She has a history of recurrent DVT, venous doppler done 2/3 was negative. She is chronically anticoagulated on Coumadin for this, INR today is 2.6. Sinus rhythm with heart rates in the 90's. Her creatinine has drifted higher as has her potassium. Her Aldactone had to be held. We are continuing to try to optimize her medication/heart failure/diuresis her. Exam (Progress Note) - Constitutional Vitals: Period Temp Pulse Resp BP Sys/Fuchs Pulse Ox Last 24 Hr 96.0 F-97.6 F 89-96 16-20 83-123/50-76 90-100 General appearance: no acute distress, over weight - Head Head exam: Absent: abrasion, hematoma - Eye Eye exam: Absent: periorbital swelling, laceration to eyelids - Neck Neck exam: Absent: tenderness - Respiratory Respiratory exam: Present: rales, other (oxygen via NBP). Absent: accessory muscle use, chest wall tenderness - Cardiovascular Cardiovascular exam: Present: regular rate and rhythm - GI/Abdominal GI/Abdominal exam: Present: normal bowel sounds, soft. Absent: distended, tenderness - Extremities Exam Extremities exam: Present: edema (trace to bilateral lower extremities) - Neurological Exam Neurological exam: Present: alert, oriented X3 - Psychiatric Psychiatric exam: Present: normal affect, normal mood - Skin Skin exam: Present: warm, dry Result/EKG - Labs CBC & BMP: 06/20/16 04:26 Lab Results: I have reviewed the past 24 hour labs Labs: Laboratory Results - last 24 hr 06/19/16 06/19/16 06/19/16 07:43 12:03 15:48 INR PT Patient/Control Mix Sodium Potassium Chloride Carbon Dioxide Anion Gap BUN Creatinine GFR Calculation BUN/Creatinine Ratio Glucose POC Glucose 117 H 112 H 99 Calculated Osmolality Calcium Magnesium 06/19/16 06/20/16 06/20/16 20:26 04:26 04:26 INR 2.6 PT Patient/Control Mix 28.7 D Sodium 134 L Potassium 5.4 H Chloride 95 L Carbon Dioxide 24 Anion Gap 20.4 H BUN 65 H Creatinine 2.90 H GFR Calculation 27 BUN/Creatinine Ratio 22.00 H Glucose 99 POC Glucose 87 Calculated Osmolality 286.2 Calcium 9.3 Magnesium 3.1 H 06/20/16 06/20/16 07:39 11:25 INR PT Patient/Control Mix Sodium Potassium Chloride Carbon Dioxide Anion Gap BUN Creatinine GFR Calculation BUN/Creatinine Ratio Glucose POC Glucose 91 120 H Calculated Osmolality Calcium Magnesium - EKG EKG results: interpreted by me EKG shows: sinus rhythm IGia Michael, MD, personally performed the services described in this documentation, ascribed by Charis Gibbs RN in my presence, and it is both accurate and complete .
[2016-06-20] MEDS: WARFARIN 5 MG TABLET PO SCH (18:19)
[2016-06-20] MEDS: NORTRIPTYLINE 25 MG CAPSULE PO SCH (20:54)
[2016-06-21] MEDS: MELOXICAM 7.5 MG TABLET PO SCH (09:26)
[2016-06-21] MEDS: ESTRADIOL 1 MG TABLET PO SCH (09:27)
[2016-06-21] MEDS: CHOLECALCIFEROL 1,000 UNIT TABLET PO SCH (09:27)
[2016-06-21] MEDS: HYDROXYCHLOROQUINE 200 MG TABLET PO SCH ×2 (09:28→20:58)
[2016-06-21] MEDS: FOLIC ACID 1 MG TABLET PO SCH (09:28)
[2016-06-21] MEDS: DULoxetine 30 MG CAPSULE PO SCH (09:28)
[2016-06-21] MEDS: ALLOPURINOL 100 MG TABLET PO SCH (09:28)
[2016-06-21] MEDS: PRAVASTATIN 20 MG TABLET PO SCH (09:28)
[2016-06-21] MEDS: PANTOPRAZOLE 40 MG TABLET PO SCH (09:29)
[2016-06-21] MEDS: POLYETHYLENE GLYCOL POWDER 17 GM PACK PO SCH (09:29)
[2016-06-21] MEDS: POTASSIUM CHLORIDE 20 MEQ TABLET PO SCH ×4 (09:33→21:01)
[2016-06-21] MEDS: DESITIN 4OZ/NYSTATIN 15 GRAM MIXTURE PASTE TOP SCH ×2 (09:33→21:01)
[2016-06-21] MEDS: SPIRONOLACTONE 25 MG TABLET PO SCH ×2 (09:33→20:58)
[2016-06-21] MEDS: MAGNESIUM OXIDE 400 MG TABLET PO SCH ×2 (09:33→21:01)
[2016-06-21] MEDS: TOPIRAMATE 25 MG TABLET PO SCH (09:34)
[2016-06-21] MEDS: INSULIN REGULAR 100 UNIT/ML SUBCUT SCH ×4 (10:01→21:00)
--- NOTE | 2016-06-21 13:11 | Sleep Medicine Progress Note ---
Assessment and Plan (1) Obstructive sleep apnea Status: Acute Assessment and plan: Given her findings on HST, it is worthwhile to give a trial of auto titration CPAP and follow up of response. We'll have the takes comment fitted with CPAP device for tonight. Current Visit: Yes (2) Hypertension Status: Chronic Current Visit: No (3) Diabetes Status: Chronic Current Visit: No (4) CHF (congestive heart failure) Status: Acute Current Visit: No Qualifiers: Congestive heart failure type: systolic Congestive heart failure chronicity : acute on chronic Qualified Code(s): I50.23 - Acute on chronic systolic ( congestive) heart failure Sleep Medicine Subjective Interval history: Patient did undergo HST evaluation last night with supplemental oxygen therapy. It did reveal obstructive sleep apnea of moderate severity with an AHI of 19.9. She did have oxygen desaturation with her events despite being on supplemental oxygen at the time. We will place her on auto CPAP tonight and follow up her response. I explained to her that with an underlying cardiomyopathy, there is the potential that she may experience treatment emergent central sleep apnea. Patients with underlying cardiomyopathy or more difficult to treat. She may require formal titration in the sleep lab if she does not have good results with CPAP. Exam (Progress Note) - Constitutional Vitals: Period Temp Pulse Resp BP Sys/Fuchs Pulse Ox Last 24 Hr 96.9 F-97.7 F 65-102 16-20 84-107/53-71 90-100 Exam: She is alert and responsive in no acute distress. Pupils equal round reactive to light and accommodation. Oropharynx with class IV Mallampati exam. Neck supple without adenopathy or thyromegaly. Chest with good air movement and no focal wheezes or rhonchi. Cardiac exam reveals a regular rhythm without murmur or gallop. Abdomen obese nontender without palpable hepatosplenomegaly or mass. Extremities are without increased edema or clubbing. Results - Labs CBC & BMP: 06/20/16 04:26 Lab Results: I have reviewed the past 24 hour labs
[2016-06-21] MEDS: WARFARIN 7.5 MG TABLET PO SCH (17:59)
--- NOTE | 2016-06-21 18:09 | Cardiology Progress Note ---
Bernie Castelan April RN, am scribing for, and in the presence of, Germain Nielsen MD 18:09. Assessment and Plan (1) Acute on chronic systolic congestive heart failure, NYHA class 4 Status: Acute Assessment and plan: She has a difficult problem due to her renal insufficiency as well as her severe left ventricular systolic dysfunction. Her creatinine and potassium drifted higher necessitating medication changes. We will recheck these tomorrow and try to optimize her medication as much as we can. Her left ventricular systolic function has declined over time. She is being evaluated for her sleep apnea. Hopefully treating this will be beneficial. Current Visit: Yes (2) History of automatic internal cardiac defibrillator (AICD) Status: Chronic Current Visit: Yes (3) Obstructive sleep apnea Status: Acute Assessment and plan: Sleep medicine is evaluating. Current Visit: Yes (4) CHF (congestive heart failure) Status: Acute Current Visit: No Qualifiers: Congestive heart failure type: systolic Congestive heart failure chronicity : acute on chronic Qualified Code(s): I50.23 - Acute on chronic systolic ( congestive) heart failure (5) Diabetes Status: Chronic Current Visit: No (6) Hyperlipidemia Status: Chronic Current Visit: No (7) Hypertension Status: Chronic Current Visit: No (8) NICM (nonischemic cardiomyopathy) Status: Chronic Current Visit: No Cardiology - PN: Subj Interval history: Resting in bed in no acute distress, oxygen in use via NBP. She is tachypneic, and she states she had been up in chair and she got short of breath while moving around. Denies chest pain, palpitations, or dizziness. She is in sinus tach with heart rate of 104. Her pressures have been low, the most recent 84/ 57. Current Medications Acetaminophen (Tylenol Tab) 325 mg PO Q4H PRN PRN Reason: fever, headache/body aches Hydrocodone Bitart/Acetaminophen ([place] 5-325) 1 tablet PO Q4H PRN PRN Reason: Pain Mild (1-3) Last Admin: 06/18/16 15:19 Dose: 1 tablet Allopurinol (Zyloprim) 100 mg PO DAILY [facility] Last Admin: 06/21/16 09:28 Dose: 100 mg Alprazolam (Xanax) 1 mg PO TID PRN PRN Reason: Anxiety Last Admin: 02/06/17 20:57 Dose: 1 mg Bisacodyl (Dulcolax Tab) 10 mg PO DAILY PRN PRN Reason: Constipation Cholecalciferol (Vitamin D3) 5,000 unit PO DAILY [facility] Last Admin: 06/21/16 09:27 Dose: 5,000 unit Dextrose/Water (D50) 25 gm IV PRN PRN PRN Reason: Hypoglycemia with IV access Docusate Sodium (Colace Cap) 100 mg PO BID PRN PRN Reason: Constipation Duloxetine HCl (Cymbalta) 60 mg PO DAILY [facility] Last Admin: 06/21/16 09:28 Dose: 60 mg Estradiol (Estrace Tab) 0.5 mg PO DAILY [facility] Last Admin: 06/21/16 09:27 Dose: 0.5 mg Folic Acid () 1 mg PO DAILY [facility] Last Admin: 06/21/16 09:28 Dose: 1 mg Glucagon () 1 mg IM PRN PRN PRN Reason: Hypoglycemia w/o IV access Guaifenesin/Dextromethorphan (Mucinex Dm) 1 tablet PO BID PRN PRN Reason: Congestion Heparin Sodium (Porcine) () 50 units IV Q12H [facility] Last Admin: 06/21/16 09:30 Dose: 50 units Hydroxychloroquine Sulfate (Plaquenil) 200 mg PO BID [facility] Last Admin: 06/21/16 09:28 Dose: 200 mg Magnesium Sulfate 2 gm/ Premix 50 mls @ 25 mls/hr IV .PER PROTOCOL PRN; Protocol PRN Reason: Per Protocol Magnesium Sulfate 4 gm/ Premix 100 mls @ 25 mls/hr IV .PER PROTOCOL PRN; Protocol PRN Reason: Per Protocol Insulin Human Regular (Humulin R) 0 unit SUBCUT ACHS [facility] PRN Reason: Protocol Last Admin: 06/21/16 14:07 Dose: 4 unit Magnesium Oxide () 400 mg PO BID [facility] Last Admin: 06/21/16 09:33 Dose: Not Given Meloxicam (Mobic) 15 mg PO DAILY [facility] Last Admin: 06/21/16 09:26 Dose: 15 mg Nortriptyline HCl (Pamelor) 50 mg PO BEDTIME [facility] Last Admin: 06/20/16 20:54 Dose: 50 mg Nystatin/Zinc Oxide (Skin Protectant Mixture) 1 applic TOP BID [facility] Last Admin: 06/21/16 09:33 Dose: 1 applic Ondansetron HCl (Zofran Inj) 4 mg IV Q4H PRN PRN Reason: Nausea Oxycodone HCl (Roxicodone) 15 mg PO QID PRN PRN Reason: Pain Last Admin: 06/18/16 04:39 Dose: 15 mg Pantoprazole Sodium (Protonix Tab) 40 mg PO DAILY [facility] Last Admin: 06/21/16 09:29 Dose: 40 mg Polyethylene Glycol (Miralax) 17 gm PO DAILY [facility] Last Admin: 06/21/16 09:29 Dose: 17 gm Potassium Chloride (K Dur) 20 meq PO QID [facility] Last Admin: 06/21/16 14:16 Dose: Not Given Pravastatin Sodium (Pravachol) 20 mg PO DAILY [facility] Last Admin: 06/21/16 09:28 Dose: 20 mg Promethazine HCl (Phenergan Tab) 50 mg PO Q4HR PRN PRN Reason: nausea Spironolactone (Aldactone) 50 mg PO BID [facility] Last Admin: 06/21/16 09:33 Dose: Not Given Topiramate (Topamax) 25 mg PO DAILY [facility] Last Admin: 06/21/16 09:34 Dose: Not Given Warfarin Sodium (Coumadin) 7.5 mg PO [email or web address] [facility] Last Admin: 06/19/16 17:12 Dose: Not Given Warfarin Sodium (Coumadin) 5 mg PO [email or web address] [facility] Last Admin: 06/20/16 18:19 Dose: 5 mg Zaleplon (Sonata) 5 mg PO BEDTIME PRN PRN Reason: Insomnia Last Admin: 06/19/16 00:52 Dose: 5 mg Exam (Progress Note) - Constitutional Vitals: Period Temp Pulse Resp BP Sys/Fuchs Pulse Ox Last 24 Hr 96.9 F-97.7 F 65-102 16-20 84-107/53-71 90-100 General appearance: no acute distress, over weight - Head Head exam: Absent: abrasion, hematoma - Neck Neck exam: Absent: tenderness - Respiratory Respiratory exam: Present: rales, other (oxygen via NBP). Absent: accessory muscle use, chest wall tenderness - Cardiovascular Cardiovascular exam: Present: regular rate and rhythm, tachycardia - GI/Abdominal GI/Abdominal exam: Present: normal bowel sounds, soft. Absent: distended, tenderness - Extremities Exam Extremities exam: Present: edema (brawny to bilateral lower extremities) - Neurological Exam Neurological exam: Present: alert, oriented X3 - Psychiatric Psychiatric exam: Present: normal affect, normal mood - Skin Skin exam: Present: warm, dry Result/EKG - Labs CBC & BMP: 06/20/16 04:26 Lab Results: I have reviewed the past 24 hour labs Labs: Laboratory Results - last 24 hr 06/20/16 06/20/16 06/21/16 15:49 19:26 08:00 POC Glucose 124 H 118 H 111 H 06/21/16 11:50 POC Glucose 167 H - EKG EKG results: interpreted by me EKG shows: tachycardia, sinus rhythm I, Germain Nielsen MD, personally performed the services described in this documentation, ascribed by Charis Gibbs RN in my presence, and it is both accurate and complete [id number] .
[2016-06-21] MEDS: NORTRIPTYLINE 25 MG CAPSULE PO SCH (20:58)
[2016-06-21] MEDS: ALPRAZolam 0.5 MG TABLET PO PRN (23:45)
[2016-06-22] MEDS: POLYETHYLENE GLYCOL POWDER 17 GM PACK PO SCH (08:59)
[2016-06-22] MEDS: DULoxetine 30 MG CAPSULE PO SCH (09:02)
[2016-06-22] MEDS: CHOLECALCIFEROL 1,000 UNIT TABLET PO SCH (09:02)
[2016-06-22] MEDS: ALLOPURINOL 100 MG TABLET PO SCH (09:02)
[2016-06-22] MEDS: FOLIC ACID 1 MG TABLET PO SCH (09:02)
[2016-06-22] MEDS: TOPIRAMATE 25 MG TABLET PO SCH (09:03)
[2016-06-22] MEDS: PANTOPRAZOLE 40 MG TABLET PO SCH (09:03)
[2016-06-22] MEDS: HYDROXYCHLOROQUINE 200 MG TABLET PO SCH ×2 (09:03→20:55)
[2016-06-22] MEDS: ESTRADIOL 1 MG TABLET PO SCH (09:03)
[2016-06-22] MEDS: SPIRONOLACTONE 25 MG TABLET PO SCH ×2 (09:04→20:55)
[2016-06-22] MEDS: INSULIN REGULAR 100 UNIT/ML SUBCUT SCH ×4 (09:04→20:57)
[2016-06-22] MEDS: POTASSIUM CHLORIDE 20 MEQ TABLET PO SCH ×4 (09:05→20:56)
[2016-06-22] MEDS: DESITIN 4OZ/NYSTATIN 15 GRAM MIXTURE PASTE TOP SCH ×2 (09:06→20:57)
[2016-06-22] MEDS: MAGNESIUM OXIDE 400 MG TABLET PO SCH ×2 (09:06→22:24)
[2016-06-22] MEDS: PRAVASTATIN 20 MG TABLET PO SCH (09:12)
[2016-06-22] MEDS: MELOXICAM 7.5 MG TABLET PO SCH (09:12)
[2016-06-22 11:21] LABS: INR 2.1
[2016-06-22 11:22] LABS: PT Patient Result 23.8 SECS
[2016-06-22 11:37] LABS: Calcium 9.4 MG/DL (8.5-10.1); Magnesium 2.8 MG/DL (1.8-2.4); Osmolality,Calculated 286.8 MOS/KG (273-304); Potassium 3.9 MMOL/L (3.5-5.1)
--- NOTE | 2016-06-22 12:45 | Cardiology Progress Note ---
Brenie Castelan April RN, am scribing for, and in the presence of, Germain Nielsen MD 12:45. Assessment and Plan (1) Acute on chronic systolic congestive heart failure, NYHA class 4 Status: Acute Assessment and plan: She has a difficult problem due to her renal insufficiency as well as her severe left ventricular systolic dysfunction. Her renal function and potassium are better today so I'm going to reinitiate diuretics. Current Visit: Yes (2) History of automatic internal cardiac defibrillator (AICD) Status: Chronic Current Visit: Yes (3) Obstructive sleep apnea Status: Acute Assessment and plan: Sleep medicine is evaluating. She used CPap last night and reports she slept better and feels better today. Current Visit: Yes (4) CHF (congestive heart failure) Status: Acute Current Visit: No Qualifiers: Congestive heart failure type: systolic Congestive heart failure chronicity : acute on chronic Qualified Code(s): I50.23 - Acute on chronic systolic ( congestive) heart failure (5) Diabetes Status: Chronic Current Visit: No (6) Hyperlipidemia Status: Chronic Current Visit: No (7) Hypertension Status: Chronic Current Visit: No (8) NICM (nonischemic cardiomyopathy) Status: Chronic Current Visit: No (9) Acute on chronic renal failure Status: Acute Assessment and plan: This is improved today. Current Visit: Yes Cardiology - PN: Subj Interval history: Resting in bed in no acute distress, oxygen in use via NBP. She reports feeling better today. Denies any chest pain, palpitations, or dizziness. Reports her shortness of breath has improved. She used the CPap last night, and she says she slept much better. She is in sinus tach with heart rates in the 100's. Will check chemistry and INR today. Current Medications Acetaminophen (Tylenol Tab) 325 mg PO Q4H PRN PRN Reason: fever, headache/body aches Hydrocodone Bitart/Acetaminophen ([place] 5-325) 1 tablet PO Q4H PRN PRN Reason: Pain Mild (1-3) Last Admin: 06/18/16 15:19 Dose: 1 tablet Allopurinol (Zyloprim) 100 mg PO DAILY [facility] Last Admin: 06/22/16 09:02 Dose: 100 mg Alprazolam (Xanax) 1 mg PO TID PRN PRN Reason: Anxiety Last Admin: 06/21/16 23:45 Dose: 1 mg Bisacodyl (Dulcolax Tab) 10 mg PO DAILY PRN PRN Reason: Constipation Cholecalciferol (Vitamin D3) 5,000 unit PO DAILY [facility] Last Admin: 06/22/16 09:02 Dose: 5,000 unit Dextrose/Water (D50) 25 gm IV PRN PRN PRN Reason: Hypoglycemia with IV access Docusate Sodium (Colace Cap) 100 mg PO BID PRN PRN Reason: Constipation Duloxetine HCl (Cymbalta) 60 mg PO DAILY [facility] Last Admin: 06/22/16 09:02 Dose: 60 mg Estradiol (Estrace Tab) 0.5 mg PO DAILY [facility] Last Admin: 06/22/16 09:03 Dose: 0.5 mg Folic Acid () 1 mg PO DAILY [facility] Last Admin: 06/22/16 09:02 Dose: 1 mg Glucagon () 1 mg IM PRN PRN PRN Reason: Hypoglycemia w/o IV access Guaifenesin/Dextromethorphan (Mucinex Dm) 1 tablet PO BID PRN PRN Reason: Congestion Heparin Sodium (Porcine) () 50 units IV Q12H [facility] Last Admin: 06/22/16 09:00 Dose: 50 units Hydroxychloroquine Sulfate (Plaquenil) 200 mg PO BID [facility] Last Admin: 06/22/16 09:03 Dose: 200 mg Magnesium Sulfate 2 gm/ Premix 50 mls @ 25 mls/hr IV .PER PROTOCOL PRN; Protocol PRN Reason: Per Protocol Magnesium Sulfate 4 gm/ Premix 100 mls @ 25 mls/hr IV .PER PROTOCOL PRN; Protocol PRN Reason: Per Protocol Insulin Human Regular (Humulin R) 0 unit SUBCUT ACHS [facility] PRN Reason: Protocol Last Admin: 06/22/16 09:04 Dose: Not Given Magnesium Oxide () 400 mg PO BID [facility] Last Admin: 06/22/16 09:06 Dose: Not Given Meloxicam (Mobic) 15 mg PO DAILY [facility] Last Admin: 06/22/16 09:12 Dose: 15 mg Nortriptyline HCl (Pamelor) 50 mg PO BEDTIME [facility] Last Admin: 06/21/16 20:58 Dose: 50 mg Nystatin/Zinc Oxide (Skin Protectant Mixture) 1 applic TOP BID [facility] Last Admin: 06/22/16 09:06 Dose: 1 applic Ondansetron HCl (Zofran Inj) 4 mg IV Q4H PRN PRN Reason: Nausea Oxycodone HCl (Roxicodone) 15 mg PO QID PRN PRN Reason: Pain Last Admin: 06/18/16 04:39 Dose: 15 mg Pantoprazole Sodium (Protonix Tab) 40 mg PO DAILY [facility] Last Admin: 06/22/16 09:03 Dose: 40 mg Polyethylene Glycol (Miralax) 17 gm PO DAILY [facility] Last Admin: 06/22/16 08:59 Dose: 17 gm Potassium Chloride (K Dur) 20 meq PO QID [facility] Last Admin: 06/22/16 09:05 Dose: Not Given Pravastatin Sodium (Pravachol) 20 mg PO DAILY [facility] Last Admin: 06/22/16 09:12 Dose: 20 mg Promethazine HCl (Phenergan Tab) 50 mg PO Q4HR PRN PRN Reason: nausea Spironolactone (Aldactone) 50 mg PO BID [facility] Last Admin: 06/22/16 09:04 Dose: Not Given Topiramate (Topamax) 25 mg PO DAILY [facility] Last Admin: 06/22/16 09:03 Dose: 25 mg Warfarin Sodium (Coumadin) 7.5 mg PO SuTuThSa@1800 [facility] Last Admin: 06/21/16 17:59 Dose: 7.5 mg Warfarin Sodium (Coumadin) 5 mg PO MoWeFr@1800 [facility] Last Admin: 06/20/16 18:19 Dose: 5 mg Zaleplon (Sonata) 5 mg PO BEDTIME PRN PRN Reason: Insomnia Last Admin: 06/19/16 00:52 Dose: 5 mg Exam (Progress Note) - Constitutional Vitals: Period Temp Pulse Resp BP Sys/Fuchs Pulse Ox Last 24 Hr 96.3 F-98.5 F 87-103 18-22 84-104/57-76 93-99 General appearance: no acute distress, over weight - Head Head exam: Absent: abrasion, hematoma - Neck Neck exam: Absent: tenderness - Respiratory Respiratory exam: Present: clear to auscultation bilaterally, other (oxygen via NBP). Absent: accessory muscle use, chest wall tenderness - Cardiovascular Cardiovascular exam: Present: regular rate and rhythm, tachycardia - GI/Abdominal GI/Abdominal exam: Present: normal bowel sounds, soft. Absent: distended, tenderness - Extremities Exam Extremities exam: Present: edema (brawny to bilateral lower extremities) - Neurological Exam Neurological exam: Present: alert, oriented X3 - Psychiatric Psychiatric exam: Present: normal affect, normal mood - Skin Skin exam: Present: warm, dry Result/EKG - Labs CBC & BMP: 06/22/16 10:27 Lab Results: I have reviewed the past 24 hour labs Labs: Laboratory Results - last 24 hr 06/21/16 06/21/16 06/21/16 11:50 15:04 19:20 POC Glucose 167 H 133 H 129 H 06/22/16 07:41 POC Glucose 96 - EKG EKG results: interpreted by me EKG shows: tachycardia, sinus rhythm I, Germain Nielsen MD, personally performed the services described in this documentation, ascribed by Charis Gibbs RN in my presence, and it is both accurate and complete [id number] .
[2016-06-22] MEDS: oxyCODONE IR 5 MG TABLET PO PRN (13:23)
[2016-06-22] MEDS: FUROSEMIDE 80 MG TABLET PO SCH (13:24)
--- NOTE | 2016-06-22 16:26 | Sleep Medicine Progress Note ---
Assessment and Plan (1) Obstructive sleep apnea Status: Acute Assessment and plan: Continue with auto CPAP. We will recheck her mask fit. A 90 Current Visit: Yes (2) Hypertension Status: Chronic Current Visit: No (3) Diabetes Status: Chronic Current Visit: No (4) CHF (congestive heart failure) Status: Acute Current Visit: No Qualifiers: Congestive heart failure type: systolic Congestive heart failure chronicity : acute on chronic Qualified Code(s): I50.23 - Acute on chronic systolic ( congestive) heart failure Sleep Medicine Subjective Interval history: Patient did sleep with auto CPAP last night and did well. She slept with it over 5 hours and 42 minutes. Her average device pressure was about 6. She did have a significant leak with her mask but only had an AHI of 3.5. She overall slept better. We'll continue present therapy and follow-up on her response. Exam (Progress Note) - Constitutional Vitals: Period Temp Pulse Resp BP Sys/Fuchs Pulse Ox Last 24 Hr 96.6 F-98.5 F 87-105 18-20 93-107/62-76 93-99 Exam: She is alert and responsive in no acute distress. Pupils equal round reactive to light and accommodation. Oropharynx with class IV Mallampati exam. Neck supple without adenopathy or thyromegaly. Chest with good air movement and no focal wheezes or rhonchi. Cardiac exam reveals a regular rhythm without murmur or gallop. Abdomen obese nontender without palpable hepatosplenomegaly or mass. Extremities are without increased edema or clubbing. Results - Labs CBC & BMP: 06/22/16 10:27 Lab Results: I have reviewed the past 24 hour labs
[2016-06-22] MEDS: WARFARIN 5 MG TABLET PO SCH (17:09)
[2016-06-22] MEDS: NORTRIPTYLINE 25 MG CAPSULE PO SCH (20:55)
[2016-06-22] MEDS: ALPRAZolam 0.5 MG TABLET PO PRN (22:42)
[2016-06-23] MEDS: oxyCODONE IR 5 MG TABLET PO PRN (03:41)
[2016-06-23 07:32] LABS: Calcium 9.1 MG/DL (8.5-10.1); Magnesium 2.8 MG/DL (1.8-2.4); Osmolality,Calculated 286.8 MOS/KG (273-304); Potassium 4.8 MMOL/L (3.5-5.1)
[2016-06-23] MEDS: TOPIRAMATE 25 MG TABLET PO SCH (09:04)
[2016-06-23] MEDS: CHOLECALCIFEROL 1,000 UNIT TABLET PO SCH (09:04)
[2016-06-23] MEDS: POLYETHYLENE GLYCOL POWDER 17 GM PACK PO SCH ×2 (09:04→09:17)
[2016-06-23] MEDS: MELOXICAM 7.5 MG TABLET PO SCH (09:05)
[2016-06-23] MEDS: PANTOPRAZOLE 40 MG TABLET PO SCH (09:05)
[2016-06-23] MEDS: POTASSIUM CHLORIDE 20 MEQ TABLET PO SCH ×4 (09:05→21:12)
[2016-06-23] MEDS: HYDROXYCHLOROQUINE 200 MG TABLET PO SCH ×2 (09:05→21:12)
[2016-06-23] MEDS: DULoxetine 30 MG CAPSULE PO SCH (09:05)
[2016-06-23] MEDS: ESTRADIOL 1 MG TABLET PO SCH (09:06)
[2016-06-23] MEDS: FOLIC ACID 1 MG TABLET PO SCH (09:06)
[2016-06-23] MEDS: ALLOPURINOL 100 MG TABLET PO SCH (09:06)
[2016-06-23] MEDS: INSULIN REGULAR 100 UNIT/ML SUBCUT SCH ×4 (09:07→21:12)
[2016-06-23] MEDS: MAGNESIUM OXIDE 400 MG TABLET PO SCH ×2 (09:08→21:12)
[2016-06-23] MEDS: DESITIN 4OZ/NYSTATIN 15 GRAM MIXTURE PASTE TOP SCH ×2 (09:08→21:13)
[2016-06-23] MEDS: PRAVASTATIN 20 MG TABLET PO SCH (09:12)
[2016-06-23] MEDS: FUROSEMIDE 80 MG TABLET PO SCH (09:12)
[2016-06-23] MEDS: SPIRONOLACTONE 25 MG TABLET PO SCH ×2 (09:12→21:12)
--- NOTE | 2016-06-23 12:12 | Cardiology Progress Note ---
Davin Castelan Rachel, RN, am scribing for, and in the presence of, Germain Nielsen MD 12:11. Assessment and Plan (1) Acute on chronic renal failure Status: Acute Assessment and plan: Creatinine is up today after restarted patient's diuretics yesterday. Creatinine 2.2 today. Monitor closely Current Visit: Yes (2) Acute on chronic systolic congestive heart failure, NYHA class 4 Status: Acute Assessment and plan: She has a difficult problem due to her renal insufficiency as well as her severe left ventricular systolic dysfunction. Diuretics were restarted yesterday. Creatinine is up from yesterday, 2.2. Current Visit: Yes (3) Obstructive sleep apnea Status: Acute Assessment and plan: Sleep medicine is evaluating. She has used Cpap the past two nights and reports that it has helped her sleep better. Current Visit: Yes (4) History of automatic internal cardiac defibrillator (AICD) Status: Chronic Current Visit: Yes (5) CHF (congestive heart failure) Status: Acute Assessment and plan: Acute on chronic systolic (congestive) heart failure Current Visit: No Qualifiers: Congestive heart failure type: systolic Congestive heart failure chronicity : acute on chronic Qualified Code(s): I50.23 - Acute on chronic systolic ( congestive) heart failure (6) Diabetes Status: Chronic Current Visit: No (7) Hyperlipidemia Status: Chronic Current Visit: No (8) Hypertension Status: Chronic Assessment and plan: This is currently well controlled, continue current plan of care. Current Visit: No (9) NICM (nonischemic cardiomyopathy) Status: Chronic Current Visit: No (10) Tachycardia Status: Acute Current Visit: Yes Cardiology - PN: Subj Interval history: Ms. Billingsley is a 61 year old female, routinely followed by Dr. Grande. She was admitted to our facility with shortness of breath. Her heart failure has been difficult to treat due to her renal insufficiency as well as her severe left ventricular systolic dysfunction. Diuretics were restarted yesterday. Creatinine is up from yesterday at 2.2. Dr. merlos has evaluated her during her stay. She has worn cpap mask the past two nights. She reports that this has helped her sleep better at night. She reports that her breathing has significantly improved. However, she tells me that it is not back to normal just yet. She states that she thinks she will be well enough to be discharged home tomorrow. She is in no acute distress and no longer requiring oxygen. She denies chest pain and palpitations. She is in sinus tachycardia per tele monitor with heart rate of 117 noted. Vital signs are stable. INR was 2.1 yesterday. Active Medications Acetaminophen (Tylenol Tab) 325 mg PO Q4H PRN PRN Reason: fever, headache/body aches Hydrocodone Bitart/Acetaminophen ([place] 5-325) 1 tablet PO Q4H PRN PRN Reason: Pain Mild (1-3) Last Admin: 06/18/16 15:19 Dose: 1 tablet Allopurinol (Zyloprim) 100 mg PO DAILY [facility] Last Admin: 06/23/16 09:06 Dose: 100 mg Alprazolam (Xanax) 1 mg PO TID PRN PRN Reason: Anxiety Last Admin: 06/22/16 22:42 Dose: 1 mg Bisacodyl (Dulcolax Tab) 10 mg PO DAILY PRN PRN Reason: Constipation Cholecalciferol (Vitamin D3) 5,000 unit PO DAILY [facility] Last Admin: 06/23/16 09:04 Dose: 5,000 unit Dextrose/Water (D50) 25 gm IV PRN PRN PRN Reason: Hypoglycemia with IV access Docusate Sodium (Colace Cap) 100 mg PO BID PRN PRN Reason: Constipation Duloxetine HCl (Cymbalta) 60 mg PO DAILY [facility] Last Admin: 06/23/16 09:05 Dose: 60 mg Estradiol (Estrace Tab) 0.5 mg PO DAILY [facility] Last Admin: 06/23/16 09:06 Dose: 0.5 mg Folic Acid () 1 mg PO DAILY [facility] Last Admin: 06/23/16 09:06 Dose: 1 mg Furosemide (Lasix Tab) 80 mg PO DAILY [facility] Last Admin: 06/23/16 09:12 Dose: 80 mg Glucagon () 1 mg IM PRN PRN PRN Reason: Hypoglycemia w/o IV access Guaifenesin/Dextromethorphan (Mucinex Dm) 1 tablet PO BID PRN PRN Reason: Congestion Heparin Sodium (Porcine) () 50 units IV Q12H [facility] Last Admin: 06/23/16 09:09 Dose: 50 units Hydroxychloroquine Sulfate (Plaquenil) 200 mg PO BID [facility] Last Admin: 06/23/16 09:05 Dose: 200 mg Magnesium Sulfate 2 gm/ Premix 50 mls @ 25 mls/hr IV .PER PROTOCOL PRN; Protocol PRN Reason: Per Protocol Magnesium Sulfate 4 gm/ Premix 100 mls @ 25 mls/hr IV .PER PROTOCOL PRN; Protocol PRN Reason: Per Protocol Insulin Human Regular (Humulin R) 0 unit SUBCUT ACHS [facility] PRN Reason: Protocol Last Admin: 06/23/16 09:07 Dose: Not Given Magnesium Oxide () 400 mg PO BID [facility] Last Admin: 06/23/16 09:08 Dose: Not Given Meloxicam (Mobic) 15 mg PO DAILY [facility] Last Admin: 06/23/16 09:05 Dose: 15 mg Nortriptyline HCl (Pamelor) 50 mg PO BEDTIME [facility] Last Admin: 06/22/16 20:55 Dose: 50 mg Nystatin/Zinc Oxide (Skin Protectant Mixture) 1 applic TOP BID [facility] Last Admin: 06/23/16 09:08 Dose: 1 applic Ondansetron HCl (Zofran Inj) 4 mg IV Q4H PRN PRN Reason: Nausea Oxycodone HCl (Roxicodone) 15 mg PO QID PRN PRN Reason: Pain Last Admin: 06/23/16 03:41 Dose: 15 mg Pantoprazole Sodium (Protonix Tab) 40 mg PO DAILY [facility] Last Admin: 06/23/16 09:05 Dose: 40 mg Polyethylene Glycol (Miralax) 17 gm PO DAILY [facility] Last Admin: 06/23/16 09:17 Dose: Not Given Potassium Chloride (K Dur) 20 meq PO QID [facility] Last Admin: 06/23/16 09:05 Dose: 20 meq Pravastatin Sodium (Pravachol) 20 mg PO DAILY [facility] Last Admin: 06/23/16 09:12 Dose: 20 mg Promethazine HCl (Phenergan Tab) 50 mg PO Q4HR PRN PRN Reason: nausea Spironolactone (Aldactone) 50 mg PO BID [facility] Last Admin: 06/23/16 09:12 Dose: 50 mg Topiramate (Topamax) 25 mg PO DAILY [facility] Last Admin: 06/23/16 09:04 Dose: 25 mg Warfarin Sodium (Coumadin) 7.5 mg PO SuTuThSa@1800 [facility] Last Admin: 06/21/16 17:59 Dose: 7.5 mg Warfarin Sodium (Coumadin) 5 mg PO MoWeFr@1800 [facility] Last Admin: 06/22/16 17:09 Dose: 5 mg Zaleplon (Sonata) 5 mg PO BEDTIME PRN PRN Reason: Insomnia Last Admin: 06/19/16 00:52 Dose: 5 mg Exam (Progress Note) - Constitutional Vitals: Period Temp Pulse Resp BP Sys/Fuchs Pulse Ox Last 24 Hr 96.6 F-98.4 F 52-108 18-22 101-134/69-82 92-96 General appearance: no acute distress, morbidly obese - Head Head exam: Present: normal inspection, normocephalic, atraumatic - Eye Pupils: Present: MANUELITO. Absent: dilated, fixed, irregular - Neck Neck exam: Present: normal inspection. Absent: lymphadenopathy, tenderness, thyromegaly - Respiratory Respiratory exam: Present: clear to auscultation bilaterally, other (not requiring oxygen). Absent: accessory muscle use, chest wall tenderness, rales, rhonchi, stridor, wheezes - Cardiovascular Cardiovascular exam: Present: regular rate and rhythm, tachycardia. Absent: gallop, JVD, rubs, systolic murmur - GI/Abdominal GI/Abdominal exam: Present: normal bowel sounds. Absent: distended, firm, tenderness - Extremities Exam Extremities exam: Present: full ROM, edema (brawny to bilateral lower extremities). Absent: calf tenderness - Neurological Exam Neurological exam: Present: alert, oriented X3 - Psychiatric Psychiatric exam: Present: normal affect, normal mood. Absent: agitated, anxious - Skin Skin exam: Present: warm, dry. Absent: cyanosis, rash, urticaria Result/EKG - Labs CBC & BMP: 06/23/16 06:47 Lab Results: I have reviewed the past 24 hour labs Labs: Laboratory Results - last 24 hr 06/22/16 06/22/16 06/22/16 10:27 11:45 15:13 Sodium 137 Potassium 3.9 Chloride 100 Carbon Dioxide 26 Anion Gap 14.9 BUN 43 H Creatinine 1.70 H GFR Calculation 51 BUN/Creatinine Ratio 25.00 H Glucose 154 H POC Glucose 185 H 90 Calculated Osmolality 286.8 Calcium 9.4 Magnesium 2.8 H 06/22/16 06/23/16 06/23/16 19:35 06:47 07:39 Sodium 137 Potassium 4.8 Chloride 101 Carbon Dioxide 26 Anion Gap 14.8 BUN 48 H Creatinine 2.20 H GFR Calculation 37 BUN/Creatinine Ratio 21.00 H Glucose 117 H POC Glucose 136 H 91 Calculated Osmolality 286.8 Calcium 9.1 Magnesium 2.8 H - EKG EKG results: sinus rhythm EKG shows: tachycardia IGia Michael, MD, personally performed the services described in this documentation, ascribed by Emma Jin RN in my presence, and it is both accurate and complete .
--- NOTE | 2016-06-23 13:04 | Sleep Medicine Progress Note ---
Assessment and Plan (1) Obstructive sleep apnea Status: Acute Assessment and plan: Continue present CPAP therapy and education regarding use of CPAP. Current Visit: Yes (2) Hypertension Status: Chronic Current Visit: No (3) Diabetes Status: Chronic Current Visit: No (4) CHF (congestive heart failure) Status: Acute Current Visit: No Qualifiers: Congestive heart failure type: systolic Congestive heart failure chronicity : acute on chronic Qualified Code(s): I50.23 - Acute on chronic systolic ( congestive) heart failure Sleep Medicine Subjective Interval history: Patient did well with CPAP therapy last night. She reports no new issues other than some difficulty in getting on her mask. We'll need to continue to work on her with putting on her CPAP nightly. We'll follow up her response with downloads of compliance data. Exam (Progress Note) - Constitutional Vitals: Period Temp Pulse Resp BP Sys/Fuchs Pulse Ox Last 24 Hr 96.6 F-98.4 F 52-108 18-22 98-134/67-82 92-100 Exam: She is alert and responsive in no acute distress. Pupils equal round reactive to light and accommodation. Oropharynx with class IV Mallampati exam. Neck supple without adenopathy or thyromegaly. Chest with good air movement and no focal wheezes or rhonchi. Cardiac exam reveals a regular rhythm without murmur or gallop. Abdomen obese nontender without palpable hepatosplenomegaly or mass. Extremities are without increased edema or clubbing. Results - Labs CBC & BMP: 06/23/16 06:47 Lab Results: I have reviewed the past 24 hour labs
[2016-06-23] MEDS: WARFARIN 7.5 MG TABLET PO SCH (17:11)
[2016-06-23] MEDS: NORTRIPTYLINE 25 MG CAPSULE PO SCH (21:11)
[2016-06-23] MEDS: ALPRAZolam 0.5 MG TABLET PO PRN (21:12)
[2016-06-24 04:13] LABS: Calcium 9.3 MG/DL (8.5-10.1); Magnesium 2.7 MG/DL (1.8-2.4); Potassium 4.7 MMOL/L (3.5-5.1)
[2016-06-24] MEDS: INSULIN REGULAR 100 UNIT/ML SUBCUT SCH (09:21)
[2016-06-24] MEDS: POLYETHYLENE GLYCOL POWDER 17 GM PACK PO SCH (09:22)
[2016-06-24] MEDS: DULoxetine 30 MG CAPSULE PO SCH (09:23)
[2016-06-24] MEDS: MELOXICAM 7.5 MG TABLET PO SCH (09:23)
[2016-06-24] MEDS: CHOLECALCIFEROL 1,000 UNIT TABLET PO SCH (09:23)
[2016-06-24] MEDS: TOPIRAMATE 25 MG TABLET PO SCH (09:24)
[2016-06-24] MEDS: SPIRONOLACTONE 25 MG TABLET PO SCH (09:24)
[2016-06-24] MEDS: FUROSEMIDE 80 MG TABLET PO SCH (09:25)
[2016-06-24] MEDS: ALLOPURINOL 100 MG TABLET PO SCH (09:25)
[2016-06-24] MEDS: ESTRADIOL 1 MG TABLET PO SCH (09:25)
[2016-06-24] MEDS: FOLIC ACID 1 MG TABLET PO SCH (09:25)
[2016-06-24] MEDS: POTASSIUM CHLORIDE 20 MEQ TABLET PO SCH (09:25)
[2016-06-24] MEDS: MAGNESIUM OXIDE 400 MG TABLET PO SCH (09:26)
[2016-06-24] MEDS: DESITIN 4OZ/NYSTATIN 15 GRAM MIXTURE PASTE TOP SCH (09:27)
--- NOTE | 2016-06-24 09:31 | Cardiology Progress Note ---
Assessment and Plan (1) Acute on chronic renal failure Status: Acute Assessment and plan: Creatinine is up today after restarted patient's diuretics yesterday. Creatinine 2.2 today. Monitor closely Current Visit: Yes (2) Acute on chronic systolic congestive heart failure, NYHA class 4 Status: Acute Assessment and plan: She has a difficult problem due to her renal insufficiency as well as her severe left ventricular systolic dysfunction. Diuretics were restarted yesterday. Creatinine is up from yesterday, 2.2. Current Visit: Yes (3) Obstructive sleep apnea Status: Acute Assessment and plan: Sleep medicine is evaluating. She has used Cpap the past two nights and reports that it has helped her sleep better. Current Visit: Yes (4) History of automatic internal cardiac defibrillator (AICD) Status: Chronic Current Visit: Yes (5) CHF (congestive heart failure) Status: Acute Assessment and plan: Acute on chronic systolic (congestive) heart failure Current Visit: No Qualifiers: Congestive heart failure type: systolic Congestive heart failure chronicity : acute on chronic Qualified Code(s): I50.23 - Acute on chronic systolic ( congestive) heart failure (6) Diabetes Status: Chronic Current Visit: No (7) Hyperlipidemia Status: Chronic Current Visit: No (8) Hypertension Status: Chronic Assessment and plan: This is currently well controlled, continue current plan of care. Current Visit: No (9) NICM (nonischemic cardiomyopathy) Status: Chronic Current Visit: No (10) Tachycardia Status: Acute Current Visit: Yes Exam (Progress Note) - Constitutional Vitals: Period Temp Pulse Resp BP Sys/Fuchs Pulse Ox Last 24 Hr 96.5 F-98.5 F 94-102 16-20 85-101/56-73 94-100 Result/EKG - Labs CBC & BMP: 06/24/16 02:39 Labs: Laboratory Results - last 24 hr 06/23/16 06/23/16 06/23/16 11:38 15:51 20:10 Sodium Potassium Chloride Carbon Dioxide Anion Gap BUN Creatinine GFR Calculation BUN/Creatinine Ratio Glucose POC Glucose 133 H 99 104 Calculated Osmolality Calcium Magnesium 06/24/16 06/24/16 02:39 07:36 Sodium 136 Potassium 4.7 Chloride 99 Carbon Dioxide 23 Anion Gap 18.7 H BUN 49 H Creatinine 2.30 H GFR Calculation 36 BUN/Creatinine Ratio 21.00 H Glucose 87 POC Glucose 92 Calculated Osmolality 283.0 Calcium 9.3 Magnesium 2.7 H
[2016-06-24] MEDS: HYDROXYCHLOROQUINE 200 MG TABLET PO SCH (09:33)
[2016-06-24] MEDS: PRAVASTATIN 20 MG TABLET PO SCH (09:34)
[2016-06-24] MEDS: PANTOPRAZOLE 40 MG TABLET PO SCH (09:34)
--- NOTE | 2016-06-24 10:45 | Discharge Summary ---
<Cortney Stone E - Last Filed: 06/24/16 10:32> Hospital Course - Hospital Course Hospital Course: Patient was admitted from Dr. Maggie Grande office with complaints of shortness of breath, weight gain and edema. She was experiencing orthopnea. She was diagnosed with acute on chronic congestive heart failure, EF 15%, [place] [employer] classification IV on admission, [place] [employer] classification II at discharge. She was admitted directly to our telemetry unit where she was kept for diuresis and adjustment in her medications. IV access was difficult and a PICC line was placed. Echocardiogram read by Dr. Mckeon revealed EF of 15% with global hypokinesis, grade 3/4 diastolic dysfunction. Mild to moderate mitral regurgitation. Her in the hospital stay she was evaluated by sleep physician Dr. Hollis and underwent in hospital CPAP titration study. See sleep medicine report. Her CPAP was adjusted during the hospital stay and she states she slept better and felt better after the adjustment. She was subtherapeutic with her INR. This was monitored and adjusted during the hospital stay. She experienced worsening renal insufficiency(acute on chronic renal insufficiency, stage III, secondary to overdiuresis. This improved. On admission, creatinine was noted to be 2.0 peaked at 3.0 and at discharge noted to be 2.3. INR the morning of discharge 2.1. She developed a severe headache during the hospital stay and this prolonged her hospitalization overnight. Having felt she met maximal medical therapy, patient is being discharged home in stable condition. She has home health and we will ask that stay home home health draw an INR on 06/27/2016 and fax the results to Dr. Maggie Grande office. She will be discharged home on warfarin 7.5 mg orally Monday , Monday, , Monday. She will take 5 mg Coumadin orally each evening on Monday, Monday and Monday. She is being given a follow-up appointment with Dr. Maggie Grande approximately 2-3 weeks. Metformin is being discontinued as she does have renal insufficiency. In its place I'll start Amaryl 2 g orally each morning. I'm asking her to follow-up with her primary care provider next week for monitoring and managing of her blood sugar levels. I will also ask that a BM P be drawn on Monday when the PTT /INR strong and this can be faxed to her primary care provider. - Time spent with patient Time with patient DS: Greater than 30 minutes Diagnosis - Discharge Diagnosis (1) NICM (nonischemic cardiomyopathy) Status: Chronic (2) Hypertension Status: Chronic (3) Diabetes Status: Chronic (4) Hyperlipidemia Status: Chronic (5) Obstructive sleep apnea Status: Chronic (6) Acute on chronic systolic congestive heart failure, NYHA class 4 Status: Resolved (7) Acute on chronic renal failure Status: Chronic Specialty Discharge - Follow Up or Referrals Follow up with: Maggie Grande MD [Physician] - (3-4 weeks) Discharge Plan - Discharge Data Disposition: Home Health Service Condition at Discharge: Stable Discharge Diet: heart healthy Activity: resume usual activities as tolerated Hygiene: no restrictions Driving: not until seen by doctor Contact your physician if you experience:: fever over 101, Difficulty voiding, Redness or swelling, Nausea/Vomiting, Shortness of breath, Bleeding, pain uncontrolled by pain medications - Discharge Medications New Glimepiride [Amaryl] 2 mg PO DAILY W/BREAKFAST #30 tablet Warfarin [Coumadin] 7.5 mg PO SuTuThSa@1800 #20 tablet Warfarin [Coumadin] 5 mg PO MoWeFr@1800 #15 tablet Continue Cholecalciferol (Vitamin D3) [Vitamin D3] 5,000 unit PO DAILY Topiramate 25 mg PO DAILY Spironolactone 50 mg PO BID Promethazine Tab [Phenergan Tab] 50 mg PO Q4HR PRN PRN Reason: nausea Pravastatin [Pravachol] 20 mg PO DAILY Potassium Chloride 20 meq PO QID Omeprazole 20 mg PO DAILY Polyethylene Glycol Powder [Miralax] 17 gm PO DAILY Meloxicam 15 mg PO DAILY Magnesium Oxide [Magox 400] 400 mg PO BID Furosemide Tab [Lasix Tab] 80 mg PO BID Nebivolol [Bystolic] 2.5 mg PO DAILY Allopurinol 100 mg PO DAILY Alprazolam [Xanax] 1 mg PO TID PRN PRN Reason: Anxiety Oxycodone HCl 15 mg PO QID PRN PRN Reason: Pain Nortriptyline [Pamelor] 50 mg PO BEDTIME metOLazone [Zaroxolyn] 2.5 mg PO QOTHER DAY #20 tablet Methotrexate Tab 4 tablet PO QID Magnesium Oxide [Magnesium] 400 mg PO BID Hydroxychloroquine [Plaquenil] 200 mg PO BID Folic Acid Tab 1 mg PO DAILY Estradiol [Estradiol Tab] 0.5 mg PO DAILY Furosemide Tab [Lasix Tab] 80 mg PO BID Duloxetine HCl [Duloxetine] 60 mg PO DAILY Discontinued metFORMIN [Glucophage] 500 mg PO DAILY W/BREAKFAST Warfarin [Coumadin] 7.5 mg PO QOTHER DAY Warfarin [Coumadin] 5 mg PO QOTHER DAY - Follow Up or Referral Follow Up: Maggie Grande MD [Physician] - (3-4 weeks) - Forms/Instructions Additional Discharge Instructions: INR Monday, June 27, 2016 - arrange for HH to draw and fax labs to Dr. Maggie Grande's office. Also draw BMP on Monday and make F/U appointment with her PCP for management of diabetes next week. (I have stopped Metformin and start Amaryl each morning due to her CRI.) Exam - Constitutional Vitals: Period Temp Pulse Resp BP Sys/Fuchs Pulse Ox Last 24 Hr 96.5 F-98.5 F 94-102 16-20 85-104/56-77 94-99 General appearance: no acute distress, morbidly obese - Head Head exam: Present: normal inspection, normocephalic - Eye Eye exam: Absent: conjunctival injection, nystagmus Pupils: Present: MANUELITO, normal accommodation - ENT ENT exam: Present: normal external ear exam, normal oropharynx - Neck Neck exam: Absent: lymphadenopathy, tenderness - Respiratory Respiratory exam: Present: clear to auscultation bilaterally. Absent: accessory muscle use - Cardiovascular Cardiovascular exam: Present: regular rate and rhythm. Absent: carotid bruit, JVD - GI/Abdominal GI/Abdominal exam: Present: normal bowel sounds, soft. Absent: mass - Extremities Exam Extremities exam: Present: normal capillary refill. Absent: edema - Back Exam Back exam: Absent: CVA tenderness (L), CVA tenderness (R), muscle spasm - Neurological Exam Neurological exam: Present: alert, oriented X3 - Psychiatric Psychiatric exam: Present: normal affect, normal mood - Skin Skin exam: Present: warm, dry Discharge Results Labs on day of discharge: Labs from last 24 hours 06/24/16 06/24/16 06/24/16 11:19 07:36 02:39 Sodium 136 Potassium 4.7 Chloride 99 Carbon Dioxide 23 Anion Gap 18.7 H BUN 49 H Creatinine 2.30 H GFR Calculation 36 BUN/Creatinine Ratio 21.00 H Glucose 87 POC Glucose 137 H 92 Calculated Osmolality 283.0 Calcium 9.3 Magnesium 2.7 H 06/23/16 06/23/16 20:10 15:51 Sodium Potassium Chloride Carbon Dioxide Anion Gap BUN Creatinine GFR Calculation BUN/Creatinine Ratio Glucose POC Glucose 104 99 Calculated Osmolality Calcium Magnesium - Imaging and Cardiology Cardiology Procedure: report reviewed by me Procedure: Chest x-ray: report reviewed by me DS: Provider Date of admission: 06/17/16 14:20 Primary care physician: Kylah Kim DO Attending physician on admission: Kylah Kim DO Consults: 06/17/16 11:23 Consult to Physician [CONS] Routine Comment: For ANT, noncompliance Consulting Provider: Karen Hollis Consulting Provider Notified: No When should Consulting Provider be notified: Now When should Consulting Provider be notified: Now 06/17/16 14:55 Consult to Sleep Center [CONS] Routine Reason for Sleep Center: Sleep Center Physician Consult Comment: FOR ANT, NONCOMPLIANCE Discharging clinician: Cortney Stone NP Expected date of discharge: 06/24/16 <Germain Nielsen - Last Filed: 06/24/16 12:53> Hospital Course - Hospital Course Hospital Course: I have seen, interviewed, examined the patient and reviewed his chart and discussed the case with the mid-level provider and agree with the plan as outlined in the note. Diagnosis - Discharge Diagnosis (1) Acute on chronic renal failure Status: Chronic (2) Acute on chronic systolic congestive heart failure, NYHA class 4 Status: Resolved (3) Obstructive sleep apnea Status: Chronic (4) History of automatic internal cardiac defibrillator (AICD) Status: Chronic (5) CHF (congestive heart failure) Status: Acute (6) Diabetes Status: Chronic (7) Hyperlipidemia Status: Chronic (8) Hypertension Status: Chronic (9) NICM (nonischemic cardiomyopathy) Status: Chronic (10) Tachycardia Status: Acute
[2016-06-24 11:44] VITALS: BP 104/77
--- NOTE | 2016-06-24 12:36 | Sleep Medicine Progress Note ---
Assessment and Plan (1) Obstructive sleep apnea Status: Chronic Assessment and plan: We will prescribe CPAP at present settings and follow-up in sleep clinic in [facility]. Current Visit: Yes (2) Hypertension Status: Chronic Current Visit: No (3) Diabetes Status: Chronic Current Visit: No (4) CHF (congestive heart failure) Status: Acute Current Visit: No Qualifiers: Congestive heart failure type: systolic Congestive heart failure chronicity : acute on chronic Qualified Code(s): I50.23 - Acute on chronic systolic ( congestive) heart failure Sleep Medicine Subjective Interval history: Patient has done fairly well with CPAP therapy while hospitalized. She has not been achieving over 4 hours nightly but her sleep apnea is much control with CPAP and this may improve with time. We will see if we can get a prescription for her CPAP to obtain prior to discharge him to have for follow-up in the sleep clinic in [place]. Exam (Progress Note) - Constitutional Vitals: Period Temp Pulse Resp BP Sys/Fuchs Pulse Ox Last 24 Hr 96.5 F-98.5 F 94-102 16-20 85-104/56-77 94-99 Exam: She is alert and responsive in no acute distress. Pupils equal round reactive to light and accommodation. Oropharynx with class IV Mallampati exam. Neck supple without adenopathy or thyromegaly. Chest with good air movement and no focal wheezes or rhonchi. Cardiac exam reveals a regular rhythm without murmur or gallop. Abdomen obese nontender without palpable hepatosplenomegaly or mass. Extremities are without increased edema or clubbing. Results - Labs CBC & BMP: 06/24/16 02:39 Lab Results: I have reviewed the past 24 hour labs Specialty Discharge - Follow Up or Referrals Follow up with: Maggie Grande MD [Physician] - (3-4 weeks)
== END 2016-06-24 14:44 | disposition home health service (06) | DRG 291 ==
LOC: N.TELES
PROVIDERS: ADMIT Internal Medicine Cardiovascular Disease; ATTEND Internal Medicine Cardiovascular Disease

== ENCOUNTER 2016-09-05 12:09 | Inpatient (IN) ==
[2016-09-05] MEDS ORDERED: DEXTROSE 50% 25 GM/50 ML VIAL IV PRN (15:06)
[2016-09-05] MEDS ORDERED: MORPHINE 2 MG/1 ML SYRINGE IV PRN (15:06)
[2016-09-05] MEDS ORDERED: DOCUSATE SODIUM 100 MG CAPSULE PO PRN ×2 (15:06→19:06)
[2016-09-05] MEDS ORDERED: ONDANSETRON 4 MG/2 ML VIAL IV PRN (15:06)
[2016-09-05] MEDS ORDERED: ACETAMINOPHEN 325 MG TABLET PO PRN (15:06)
[2016-09-05] MEDS ORDERED: BISACODYL 5 MG TABLET PO PRN (15:06)
[2016-09-05] MEDS ORDERED: MAGNESIUM SULF RIDER 2 GM in PREMIX 1 EACH IV PRN (15:06)
[2016-09-05] MEDS ORDERED: GLUCAGON 1 MG VIAL IM PRN (15:06)
[2016-09-05] MEDS ORDERED: MAGNESIUM SULF RIDER 4 GM in PREMIX 1 EACH IV PRN (15:06)
[2016-09-05] MEDS ORDERED: ZALEPLON 5 MG CAPSULE PO PRN (15:06)
[2016-09-05] MEDS: PANTOPRAZOLE 40 MG TABLET PO SCH (16:26)
[2016-09-05] MEDS: DESITIN 4OZ/NYSTATIN 15 GRAM MIXTURE PASTE TOP SCH ×2 (16:26→23:44)
[2016-09-05 17:09] LABS: Basophils # 0.1 10*3/uL (0.0-0.2); Basophils % 0.5 % (0.0-0.8); Eosinophils # 0.2 10*3/uL (0.0-0.87); Eosinophils % 1.6 % (0.00-10.9); Hematocrit 43.5 VOL% (35.7-47.0); Hemoglobin 13.9 GM/DL (12.0-16.0); Immature Granulocytes % 0.6 %; Immature Granulocytes Absolute 0.06 #; Lymphocytes # 1.9 10*3/uL (1.4-4.0); Lymphocytes % 19.9 % (21.3-54.2); Mean Corpuscular Hemoglobin 31 PG (27-34); Mean Corpuscular Volume 95.8 FL (87-102); Mean Platelet Volume 11.4 FL (9.6-12.0); Monocytes # 0.9 10*3/uL (0.11-0.8); Monocytes % 9.6 % (1.7-12.7); NRBC # 0.07 10*3/uL; Neutrophils # 6.4 10*3/uL (1.4-7.4); Neutrophils % 67.8 % (38.7-73.9); Platelet Count 110 T/CUMM (130-400); Red Blood Count 4.54 MC/CUMM (3.8-5.5); Red Cell Distribution Width 18.3 % (9.3-17.3); White Blood Count 9.5 T/CUMM (4-12)
[2016-09-05 17:34] LABS: Albumin 2.7 G/DL (3.4-5.0); Bilirubin,Total 1.1 MG/DL (0.2-1.0); Calcium 8.4 MG/DL (8.5-10.1); Osmolality,Calculated 296.1 MOS/KG (273-304); Thyroid Stimulating Hormone 12.2 uIU/ml (0.358-3.74); Total Protein 6.3 G/DL (6.4-8.3)
[2016-09-05 17:39] LABS: Potassium 6.9 MMOL/L (3.5-5.1)
[2016-09-05] MEDS ORDERED: SODIUM POLYSTYRENE SULFATE 15 GM/60 ML BOTTLE PO ONE (18:02)
[2016-09-05] MEDS ORDERED: ALUMINUM/MAGNES/SIMETH MAX STR 30 ML UDCUP PO PRN (19:06)
--- NOTE | 2016-09-05 19:38 | Cardiology History & Physical ---
Bernie Castelan April RN, am scribing for, and in the presence of, Maggie Grande MD 19:33. Assessment and Plan - Time spent with patient Time spent with patient: Greater than 30 minutes (Due to assessment, planning, documentation, medication review) (1) Acute renal failure Status: Acute Current Visit: Yes (2) Hyperkalemia Status: Acute Current Visit: No (3) NICM (nonischemic cardiomyopathy) Status: Chronic Current Visit: Yes (4) Diabetes Status: Chronic Current Visit: Yes Qualifiers: Diabetes mellitus type: type 2 (5) CHF (congestive heart failure) Status: Acute Assessment and plan: See plan in the HPI Current Visit: Yes Qualifiers: Congestive heart failure type: systolic Congestive heart failure chronicity : acute on chronic Qualified Code(s): I50.23 - Acute on chronic systolic ( congestive) heart failure (6) Hyperlipidemia Status: Chronic Current Visit: Yes (7) Obstructive sleep apnea Status: Chronic Current Visit: Yes (8) Debility Status: Acute Current Visit: No (9) Hernia of abdominal wall Status: Acute Current Visit: No (10) History of automatic internal cardiac defibrillator (AICD) Status: Chronic Current Visit: No History of Present Illness Chief complaint: Generalized edema History of present illness: Research Professor Of Biostatistics: Dr. Graned The patient is a poor historian. Supplemental history is provided by the patient's sister and son. Ms. Billingsley is a 61 year old female who is routinely followed by Dr. Grande. She is a poor historian. She has a history of CHF, nonischemic cardiomyopathy, hyperlipidemia, hypertension, PVD, CVA, NIDDM, arthritis, obstructive sleep apnea, pulmonary embolism, diverticulitis, GERD, and DVT. She reports she uses a CPAP most nights. She had ICD placed by Dr. Dale. She is admitted to the hospital with "heart failure". She was admitted last month with heart failure. Upon discharge from [facility] she said she went to [facility] bed. She thinks she stayed there about 2 weeks, she is not sure how long she was home. She tells me she always has some edema, but Monday it began to get worse. It didn't improve over the weekend and today when her home health nurse visited her, she arranged for admission. She has generalized edema throughout her body with 3-4+ pitting edema to lower extremities and left upper extremity. She does have some dyspnea which she considers to be chronic for her. At this point, apparently she is bedridden and is not ambulating. She reports having had a cough, but cannot tell me how long that has been going on. She denies any chest pain or palpitations. She says she is weak and tired all the time. She tends to be somewhat hypotensive which limits what medicine she is able to get to help her CHF. Current blood pressure 79/56. hospital monitor currently shows sinus rhythm with heart rates in the 80s. Echo done June 18 of this year showed severely dilated left ventricle with ejection fraction 15% and global hypokinesis, grade 3/4 diastolic dysfunction, and four-chamber cardiac enlargement. The family is having a hard time taking care of her at home and she is unwilling to go to a detention. Of note, she was admitted to the hospital, discharged to swing bed and was readmitted to the hospital in July with hyperkalemia. It is unclear what medications she is actually taking at this time, both the family and the patient are unsure. I cannot with certainty confirmed the medications listed in his chart, although lisinopril is one of those as listed. Discharge medications in the last visit did not have that listed. Discharge medications listers taking both Eliquis 5 mg twice a day and Eliquis 10 mg twice a day, although only 5 are confirmed on admission now. She is noted to have gangrenous toes bilaterally. The patient doesn't seem to have too much awareness her understanding of this and cannot really tell me when this began. After her visit, the son tells me in privacy that this is not an acute diagnosis, that she was seen "somewhere", perhaps [facility], for this and that she was told that she was just too sick to undergo surgery for treatment of this. Apparently she is on hospice care. She wishes to be maintained under "DO NOT RESUSCITATE" status. Impression and plan: 1. Congestive heart failure-this is acute on chronic secondary to systolic dysfunction.. It is unclear to me at this point what medication she is actually receiving. She cannot receive an DEREK inhibitor, angiotensin receptor gabriel, due to hyperkalemia now. She is also in acute renal failure. She cannot receive other antihypertensive medications due to hypotension. We will try to diurese her although this will be tenuous in the setting of her hypotension. 2. Nonischemic cardiomypathy-chronic. See discussion above. 3. Acute renal failure-this could be from her hypotension, medications, intravascular volume depletion. We'll consult nephrology. 4. Hyperkalemia-we will get a stat ECG, consult nephrology, repeat laboratory data, administer Kayexalate. 5. Hypotension-this may be from her cardiomyopathy. We have verified this manually. This will limit some of her care. We will rule out infection, check for blood cultures, pneumonia and UTI. 6. Gangrenous toes-Dr. Clay has been consulted. She has a palpable pulse in her right lower extremity, we will need to Doppler her left. 7. Edema-this is in 3 out of her 4 limbs. She does have a history of DVTs. It is unclear to me what medications he is actually taking. This may all be from heart failure. We are going to rule out deep venous thrombosis. We will try to cautiously diurese her. 8. Generalized debility-the patient will not be a candidate to return home. Her family is unable to give the care she needs. We will consult social media marketing analyst. 9. The patient requests to be kept under "DO NOT RESUSCITATE" status. 10. History of deep venous thrombosis-we will rule out acute thrombus. 11. Chronic pain-stable. Home Medications Medication Instructions Recorded Confirmed Type Cholecalciferol (Vitamin D3) 5,000 unit PO DAILY 04/30/15 09/05/16 History [Vitamin D3] Nortriptyline [Pamelor] 50 mg PO BEDTIME 12/17/15 09/05/16 History Duloxetine HCl [Duloxetine] 60 mg PO DAILY 06/16/16 09/05/16 History Estradiol [Estradiol Tab] 0.5 mg PO DAILY 06/16/16 09/05/16 History Folic Acid Tab 1 mg PO DAILY 06/16/16 09/05/16 History ALPRAZolam [Xanax] 1 mg PO TID PRN 07/12/16 09/05/16 History Acetaminophen Tab [Tylenol Tab] 325 mg PO Q4H PRN #0 tablet 07/19/16 09/05/16 Rx Alum/Mag/Simeth Max Str Liquid 30 ml PO Q4H PRN #0 07/19/16 09/05/16 Rx [Mylanta Max Strength Liquid] Apixaban [Eliquis] 5 mg PO BID tablet 07/19/16 09/05/16 Rx Docusate Sodium Cap [Colace Cap] 100 mg PO BID PRN #0 capsule 07/19/16 09/05/16 Rx Carvedilol [Coreg] 3.125 mg PO BID 09/05/16 09/05/16 History Digoxin Tab [Lanoxin Tab] 0.125 mg PO DAILY@1300 09/05/16 09/05/16 History Furosemide [Lasix] 20 mg PO BID 09/05/16 09/05/16 History Levothyroxine Tab [Synthroid Tab] 75 mcg PO DAILY@0700 09/05/16 09/05/16 History Lisinopril [Prinivil] 10 mg PO DAILY 09/05/16 09/05/16 History Omeprazole 20 mg PO DAILY 09/05/16 09/05/16 History Oxycodone HCl 15 mg PO QID 09/05/16 09/05/16 History Polyethylene Glycol 3350 17 gm PO DAILY 09/05/16 09/05/16 History Allergies Allergy/AdvReac Type Severity Reaction Status Date / Time codeine Allergy RASH Verified 07/21/16 15:13 Penicillins Allergy RASH Verified 07/21/16 15:13 - Constitutional Constitutional: Present: as per HPI - EENT Eyes: Present: blurry vision, requires corrective lense Ears: Absent: decreased hearing, ear pain, tinnitus Nose, mouth and throat: Absent: dysphagia, epistaxis, headache(s), hoarseness, neck pain, sore throat - Cardiovascular Cardiovascular: Present: dyspnea, dyspnea on exertion, edema, lightheadedness, orthopnea. Absent: chest pain at rest, chest pain with activity, diaphoresis, radiating jaw, neck or arm pain, palpitations - Respiratory Respiratory: Present: cough, dyspnea, dyspnea on exertion. Absent: hemoptysis, wheezing - Gastrointestinal Gastrointestinal: Absent: abdominal pain, constipation, diarrhea, nausea, vomiting - Genitourinary Genitourinary: Absent: dysuria, hematuria - Musculoskeletal Musculoskeletal: Present: back pain, limited range of motion, muscle weakness - Neurological Neurological: Present: abnormal gait, abnormal speech, dizziness, frequent falls. Absent: headache(s) - Psychiatric Psychiatric: Absent: anxiety, depression - Endocrine Endocrine: Present: fatigue. Absent: cold intolerance, heat intolerance - Hematologic/Lymphatic Hematologic/Lymphatic: Absent: easy bleeding, easy bruising Medical,Surgical,& Family Hx - Medical History Cardio: History of: CHF, Hypertension, Pacemaker, PVD Neurology: History of: Cerebrovascular Accident (02/22/2013), TIA (2013) Endocrine: History of: Diabetes Mellitus (NIDDM) Rheumatology: History of;: Rheumatoid Arthritis Respiratory: History of: Obstructive Sleep Apnea, Pulmonary Embolism Gastrointestinal: History of: Diverticulitis/ Diverticulosis, GERD Hematology: History of: Clotting Problems (DVT x 2) - Surgical History Cardiac Surgeries: Sugical HX of: Internal Defibrillator (02/22/2013) Abdominal Surgeries: Surgical HX of: Abdominal Surgery, Cholecystectomy, Colonoscopy, EGD, Hernia Repair (x2) Reproductive Surgeries: Surgical HX of;: Section - Family History Family History: Reports;: Family Cancer (Mother), Family Diabetes (Sister), Family Heart Disease (mother), Family Hypertension (mother, brother, sister), Family Stroke (Mother) - Social History Smoking Status: Former smoker (Quit smoking Jewels last year) Have you smoked in the last 12 months: Yes Frequency of Alcohol Use: None Type of Drug Use: None Lives With:: Children Functional capacity: bed bound Cardiology Physical Exam - Constitutional Vitals: Vital Signs Temp Pulse Resp BP Pulse Ox 97.4 F L 84 22 86/54 94 L 09/05/16 13:58 09/05/16 13:58 09/05/16 13:58 09/05/16 13:58 09/05/16 13:58 Intake and Output 09/05/16 09/05/16 09/05/16 06:59 14:59 22:59 Other: Weight 350 lb Patient Weight 09/06/16 06:59 Weight 350 lb General appearance: no acute distress, morbidly obese - Head Head exam: Present: normal inspection, normocephalic, atraumatic. Absent: abrasion, contusion, hematoma, laceration - Eye Eye exam: Present: EOMI. Absent: conjunctival injection, nystagmus, periorbital swelling, scleral icterus, laceration to eyelids Pupils: Absent: constricted, dilated, fixed, irregular, unequal - ENT ENT exam: Present: normal exam, normal external ear exam - Neck Neck exam: Present: normal inspection, other (exam is limited by habitus and right internal jugular catheter). Absent: lymphadenopathy, tenderness - Respiratory Respiratory exam: Present: wheezes (Expiratory), other (Oxygen via nasal cannula ). Absent: accessory muscle use, chest wall tenderness - Cardiovascular Cardiovascular exam: Present: JVD (unable to assess due to right IJ catheter), regular rate and rhythm. Absent: carotid bruit, diastolic murmur, rubs, systolic murmur - GI/Abdominal GI/Abdominal exam: Present: normal bowel sounds, distended. Absent: firm, guarding, mass, tenderness - Extremities Exam Extremities exam: Present: edema, other (gangrenous toes bilateral lower extremities, 4+ edema in the bilateral lower extremities and left upper extremity) - Back Exam Back exam: Present: other (unable to assess due to patient being obese and weak) - Neurological Exam Neurological exam: Present: alert, oriented X3 - Psychiatric Psychiatric exam: Present: flat affect. Absent: agitated, anxious - Skin Skin exam: Present: warm, dry, other (gangrenous toes in the bilateral lower extremities, some ecchymosis in the left upper extremity) Result/EKG - Labs CBC & BMP: 09/05/16 16:02 09/05/16 16:02 Lab Results: I have reviewed the past 24 hour labs Labs: Laboratory Results - last 24 hr 09/05/16 09/05/16 16:02 16:02 WBC 9.5 RBC 4.54 Hgb 13.9 Hct 43.5 MCV 95.8 MCH 31 MCHC 32.0 RDW 18.3 H Plt Count 110 L MPV 11.4 Neut % (Auto) 67.8 Lymph % (Auto) 19.9 L Burt % (Auto) 9.6 Eos % (Auto) 1.6 Baso % (Auto) 0.5 Neut # (Auto) 6.4 Lymph # (Auto) 1.9 Burt # (Auto) 0.9 H Eos # (Auto) 0.2 Baso # (Auto) 0.1 Immature Gran % 0.6 Nucleated RBC % 0.7 Immature Gran # 0.06 Nucleated RBCs # 0.07 Sodium 135 L Potassium 6.9 H* Chloride 109 H Carbon Dioxide 14 L Anion Gap 18.9 H BUN 93 H Creatinine 6.40 H GFR Calculation 11 BUN/Creatinine Ratio 14.00 Glucose 65 L Calculated Osmolality 296.1 Calcium 8.4 L Total Bilirubin 1.10 H AST 21 ALT 17 Alkaline Phosphatase 165 H Total Protein 6.3 L Albumin 2.7 L Globulin 3.6 H Albumin/Globulin Ratio 0.7 L TSH 3rd Generation 12.200 H Harjinder Castelan Jennifer, MD, personally performed the services described in this documentation, ascribed by Charis Gibbs RN in my presence, and it is both accurate and complete 938 .
[2016-09-05] MEDS ORDERED: FUROSEMIDE 40 MG/4 ML VIAL IV ONE (19:42)
--- NOTE | 2016-09-05 20:25 | Nephrology Consult Note ---
History of Present Illness Chief complaint: Acute on chronic kidney disease. hyperkalemia History of present illness: Ms. Billingsley is a 61 year old female with multiple admissions the last 3 months for hyperkalemia, creatinine ranges from 1.7-3.2 during that time. She has nonischemic dilated cardiomyopathy, s/p ICD implant. K as high as 7.2 last month , treated with kayexalate and IVFs. She admits to being noncompliant with low potassium diet (bananas, potatoes). Her bicarb is low at 14, creatinine 6.5, K 6.9, BUN >60. She denies SOB/pain. SaO2 >90% on 2L via nc. BLE edema, non- tense. Lungs relatively CTAB. Her EF is estimated at 15%. She does not desire BLS/ACLS should her heart stop and does not want intubation/mechanical ventilation. She was supposedly on home hospice and is a DNR. She has been given kayexalate and lasix. She reports taking 80mg lasix once daily at home, but it hasn't worked well for a couple of days. She states she is very thirsty. She has PMHx of DM2, HTN, stroke, HLD, NICM, CHF and recurrent hyperkalemia. No EKG for review. Repeat BMP pending. Home Medications Medication Instructions Recorded Confirmed Type Cholecalciferol (Vitamin D3) 5,000 unit PO DAILY 04/30/15 09/05/16 History [Vitamin D3] Nortriptyline [Pamelor] 50 mg PO BEDTIME 12/17/15 09/05/16 History Duloxetine HCl [Duloxetine] 60 mg PO DAILY 06/16/16 09/05/16 History Estradiol [Estradiol Tab] 0.5 mg PO DAILY 06/16/16 09/05/16 History Folic Acid Tab 1 mg PO DAILY 06/16/16 09/05/16 History ALPRAZolam [Xanax] 1 mg PO TID PRN 07/12/16 09/05/16 History Acetaminophen Tab [Tylenol Tab] 325 mg PO Q4H PRN #0 tablet 07/19/16 09/05/16 Rx Alum/Mag/Simeth Max Str Liquid 30 ml PO Q4H PRN #0 07/19/16 09/05/16 Rx [Mylanta Max Strength Liquid] Apixaban [Eliquis] 5 mg PO BID tablet 07/19/16 09/05/16 Rx Docusate Sodium Cap [Colace Cap] 100 mg PO BID PRN #0 capsule 07/19/16 09/05/16 Rx Carvedilol [Coreg] 3.125 mg PO BID 09/05/16 09/05/16 History Digoxin Tab [Lanoxin Tab] 0.125 mg PO DAILY@1300 09/05/16 09/05/16 History Furosemide [Lasix] 20 mg PO BID 09/05/16 09/05/16 History Levothyroxine Tab [Synthroid Tab] 75 mcg PO DAILY@0700 09/05/16 09/05/16 History Lisinopril [Prinivil] 10 mg PO DAILY 09/05/16 09/05/16 History Omeprazole 20 mg PO DAILY 09/05/16 09/05/16 History Oxycodone HCl 15 mg PO QID 09/05/16 09/05/16 History Polyethylene Glycol 3350 17 gm PO DAILY 09/05/16 09/05/16 History Allergies Allergy/AdvReac Type Severity Reaction Status Date / Time codeine Allergy RASH Verified 07/21/16 15:13 Penicillins Allergy RASH Verified 07/21/16 15:13 Medical,Surgical,& Family Hx - Medical History Cardio: History of: CHF, Hypertension, Pacemaker, PVD No history of: Aneurysm, Cardiac Dysrhythmia, Cerebrovascular Disease, Congenital Heart Disease, CAD, [place], Valvular Heart Disease, Cardiovascular Problems Neurology: History of: Cerebrovascular Accident (02/22/2013), TIA (2012) No history of: Seizures Endocrine: History of: Diabetes Mellitus (NIDDM) No history of: Dyslipidemia Rheumatology: History of;: Rheumatoid Arthritis Respiratory: History of: Obstructive Sleep Apnea, Pulmonary Embolism Gastrointestinal: History of: Diverticulitis/ Diverticulosis, GERD No history of: Bowel Obstruction, Clostridium Difficile, Crohn's Disease, Esophageal Varices, Gastrointestinal Bleed, Hemorrhoids, Hematochezia, Hepatitis , Liver Problems, Pancreatitis, Polyps, Ulcerative Colitis, Gastrointestinal Cancer, GI Problems Musculoskeletal: No history of: Amputation Hematology: History of: Clotting Problems (DVT x 2) - Surgical History Cardiac Surgeries: Sugical HX of: Internal Defibrillator (02/22/2013) Thoracic Surgeries: Patient denies;: Organ Transplant Abdominal Surgeries: Surgical HX of: Abdominal Surgery, Cholecystectomy, Colonoscopy, EGD, Hernia Repair (x2) Patient denies: Appendectomy, Gastric Bypass Surgery Reproductive Surgeries: Surgical HX of;: Section Patient denies;: Genitourinary Surgery - Family History Family History: Reports;: Family Cancer (Mother), Family Diabetes (Sister), Family Heart Disease (mother), Family Hypertension (mother, brother, sister), Family Stroke (Mother) - Social History Smoking Status: Former smoker (Quit smoking January last ) Frequency of Alcohol Use: None Type of Drug Use: None Exam - Vital Signs Vital signs: Period Temp Pulse Resp BP Sys/Fuchs Pulse Ox Last 24 Hr 96.5 F-97.4 F 84-84 22-22 79-86/54-62 92-94 - General Appearance General appearance: well-developed, obese EENT: ATNC, PERRL, mucous membranes dry Neck: no JVD, no thyromegaly Respiratory: no kyphosis, clear Cardiology: no murmurs, no rub, edema Gastrointestinal: normoactive bowel sounds, obese Integumentary: no rash, warm and dry Neurologic: no asterixis, alert and oriented x3 Musculoskeletal: no deformities, no erythema Psychiatric: depressed, cooperative Results - Labs CBC & BMP: 09/05/16 16:02 09/05/16 16:02 Assessment and Plan (1) Hyperkalemia Problem details: Multifactorial, including dietary noncompliance and metabolic acidosis. Status: Acute Assessment and plan: D5W +150meq bicarb @125cc/hr overnight will help shift potassium intracellularly to a safe range. Low potassium diet. Pt is not a chronic dialysis candidate due to poor predicted one year survival and comorbidities. DNR/DNI/hospice. Conservative measures only. Comfort care. Current Visit: No (2) FIDENCIO (acute kidney injury) Problem details: Most likely due to overdiuresis. Status: Acute Assessment and plan: No indication for dialysis. Pt is not a candidate for chronic dialysis due to predicted poor one year survival and comorbidities. Current Visit: Yes (3) CKD (chronic kidney disease) stage 3, GFR 30-59 ml/min Problem details: Due to presumed diabetic nephropathy. Status: Acute Current Visit: Yes (4) NICM (nonischemic cardiomyopathy) Problem details: Poor predicted one year survival. Status: Chronic Assessment and plan: DNR/DNI Current Visit: Yes (5) Diabetes Status: Chronic Current Visit: Yes Qualifiers: Diabetes mellitus type: type 2
--- NOTE | 2016-09-05 20:56 | Ultrasound Report ---
History: Lower extremity edema. History of DVT Date: 09/05/2016 Study: Bilateral lower extremity color-flow venous Doppler study Comparison exam: June 17, 2016 venous ultrasound Color Doppler, wave form analysis, and compression analysis of the deep veins of both lower extremities from the common femoral vein level through the popliteal vein level shows that the veins are readily compressible. There is no abnormal intraluminal material to suggest thrombus. Waveform analysis is unremarkable. Ultrasound images were captured and archived Impression: No evidence of acute DVT Not discussed above, there is prominent soft tissue edema of the lower extremities bilaterally PROCEDURE INTERPRETED AT [facility] DEPARTMENT OF RADIOLOGY Final Report Signed by: Dr. Tonya Pkie
[2016-09-05] MEDS: SODIUM BICARB INJ 150 MEQ in DEXTROSE 5% 850 ML IV SCH (20:59)
--- NOTE | 2016-09-05 21:14 | EKG Report ---
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
[2016-09-05] MEDS: oxyCODONE IR 5 MG TABLET PO SCH (21:16)
[2016-09-05] MEDS: NORTRIPTYLINE 25 MG CAPSULE PO SCH (21:17)
[2016-09-05 21:31] LABS: Calcium 8.2 MG/DL (8.5-10.1); Osmolality,Calculated 308.4 MOS/KG (273-304); Potassium 5.4 MMOL/L (3.5-5.1)
--- NOTE | 2016-09-05 22:07 | Ultrasound Report ---
History: Left upper extremity edema Date: 09/05/2016 Study: Left upper extremity, color flow venous Doppler study Comparison exam: July 16, 2016 Color Doppler, wave form analysis, and compression analysis of the deep veins of the left upper extremity from the internal jugular and subclavian vein level through the elbow level was performed. There is no new or worsening DVT. There is some improving chronic thrombus in the cephalic vein. Waveform analysis is otherwise generally unremarkable. Ultrasound images were captured and archived Impression: Improving chronic thrombus within the left cephalic vein. No new or worsening DVT PROCEDURE INTERPRETED AT [facility] DEPARTMENT OF RADIOLOGY Final Report Signed by: Dr. Tonya Pike
--- NOTE | 2016-09-05 22:48 | XRay Report ---
History: Shortness of breath Date: 09/05/2016 Study: Chest x-ray AP portable Comparison exam: July 21, 2016 There is continued cardiomegaly. The mediastinal contours are unchanged. The pulmonary vasculature is slightly prominent and ill-defined. There is some hazy pulmonary edema in the mid to lower lungs. A left upper extremity transvenous pacemaker sized fibroid device is intact and unchanged. Osseous structures are similar. Impression: Cardiomegaly and evidence of CHF with pulmonary edema PROCEDURE INTERPRETED AT [facility] DEPARTMENT OF RADIOLOGY Final Report Signed by: Dr. Tonya Pike
--- NOTE | 2016-09-06 04:27 | EKG Report ---
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
[2016-09-06] MEDS: SODIUM BICARB INJ 150 MEQ in DEXTROSE 5% 850 ML IV SCH ×3 (05:25→23:16)
[2016-09-06 06:26] LABS: Basophils % 0.6 % (0.0-0.8); Eosinophils # 0.2 10*3/uL (0.0-0.87); Eosinophils % 2.7 % (0.00-10.9); Hematocrit 38.6 VOL% (35.7-47.0); Hemoglobin 12.7 GM/DL (12.0-16.0); Immature Granulocytes % 0.4 %; Immature Granulocytes Absolute 0.03 #; Lymphocytes # 1.4 10*3/uL (1.4-4.0); Lymphocytes % 21.4 % (21.3-54.2); Mean Corpuscular HGB Conc 32.9 GM/DL (32-36); Mean Corpuscular Hemoglobin 31 PG (27-34); Mean Corpuscular Volume 92.6 FL (87-102); Mean Platelet Volume 10.6 FL (9.6-12.0); Monocytes # 0.5 10*3/uL (0.11-0.8); NRBC # 0.05 10*3/uL; Neutrophils # 4.5 10*3/uL (1.4-7.4); Neutrophils % 66.9 % (38.7-73.9); Platelet Count 145 T/CUMM (130-400); Red Blood Count 4.17 MC/CUMM (3.8-5.5); Red Cell Distribution Width 17.7 % (9.3-17.3); White Blood Count 6.7 T/CUMM (4-12)
[2016-09-06 07:01] LABS: Albumin 2.4 G/DL (3.4-5.0); Bilirubin,Total 0.9 MG/DL (0.2-1.0); Calcium 7.9 MG/DL (8.5-10.1); Osmolality,Calculated 306.3 MOS/KG (273-304); Potassium 5.1 MMOL/L (3.5-5.1); Risk Ratio 2.37; Total Protein 5.5 G/DL (6.4-8.3)
[2016-09-06] MEDS: LEVOTHYROXINE 75 MCG TABLET PO SCH (07:24)
--- NOTE | 2016-09-06 07:33 | XRay Report ---
Portable chest. Indication: Shortness of breath. Comparison: September 05, 2016. The cardiac silhouette is markedly enlarged. There is also left atrial prominence. Cardiac hardware appears to be in satisfactory position. The pulmonary vasculature is prominent. The central pulmonary vasculature is prominent as well. Basilar opacities bilaterally may be related to atelectasis or pneumonia. Impression: Cardiomegaly. Venous congestion. Basilar infiltrates consistent with atelectasis or infiltrate, some improvement. PROCEDURE INTERPRETED AT [facility] DEPARTMENT OF RADIOLOGY Final Report Signed by: Dr. Emma Simmons
[2016-09-06] MEDS ORDERED: SKIN HEALING OINT (AQUAPHOR) 50 GM TUBE TOP PRN (08:52)
--- NOTE | 2016-09-06 09:16 | General Surgery Consult Note ---
Assessment and Plan - Time spent with patient Time spent with patient: Greater than 30 minutes (1) Ischemia of both lower extremities Status: Acute Assessment and plan: Ischemic changes with rest pain of bilateral lower extremities. At this point, we'll get noninvasive vascular studies, then institute local care to protect the skin from further breakdown and infection as we wait for these areas to declare themselves. She's definitely not a good surgical candidate, given her low cardiac ejection fraction and hospice state, so we will try to be as conservative as possible. Current Visit: Yes (2) Edema of both legs Status: Acute Assessment and plan: Again, she likely will have continued edema, both from her morbid truncal obesity and dependent venous stasis. We will want to gently offer support while taking care to prevent constricting the arterial flow. This will be an ongoing problem and will need dedicated gentle and knowledgeable compression, as edema will exacerbate the low flow state, and incorrectly applied compression will inhibit it. Current Visit: Yes (3) Chronic deep vein thrombosis (DVT) of left upper extremity Status: Acute Assessment and plan: Left upper extremity with doppler proven chronic cephalic DVT. She's on Eliquis. We will continue to support and elevate the extremity, watching for secondary problems. Current Visit: Yes History of Present Illness Chief complaint: Ischemic toes History of present illness: Ms. Billingsley is a 61 year old female Home Medications Medication Instructions Recorded Confirmed Type Cholecalciferol (Vitamin D3) 5,000 unit PO DAILY 04/30/15 09/05/16 History [Vitamin D3] Nortriptyline [Pamelor] 50 mg PO BEDTIME 12/17/15 09/05/16 History Duloxetine HCl [Duloxetine] 60 mg PO DAILY 06/16/16 09/05/16 History Estradiol [Estradiol Tab] 0.5 mg PO DAILY 06/16/16 09/05/16 History Folic Acid Tab 1 mg PO DAILY 06/16/16 09/05/16 History ALPRAZolam [Xanax] 1 mg PO TID PRN 07/12/16 09/05/16 History Acetaminophen Tab [Tylenol Tab] 325 mg PO Q4H PRN #0 tablet 07/19/16 09/05/16 Rx Alum/Mag/Simeth Max Str Liquid 30 ml PO Q4H PRN #0 07/19/16 09/05/16 Rx [Mylanta Max Strength Liquid] Apixaban [Eliquis] 5 mg PO BID tablet 07/19/16 09/05/16 Rx Docusate Sodium Cap [Colace Cap] 100 mg PO BID PRN #0 capsule 07/19/16 09/05/16 Rx Carvedilol [Coreg] 3.125 mg PO BID 09/05/16 09/05/16 History Digoxin Tab [Lanoxin Tab] 0.125 mg PO DAILY@1300 09/05/16 09/05/16 History Furosemide [Lasix] 20 mg PO BID 09/05/16 09/05/16 History Levothyroxine Tab [Synthroid Tab] 75 mcg PO DAILY@0700 09/05/16 09/05/16 History Lisinopril [Prinivil] 10 mg PO DAILY 09/05/16 09/05/16 History Omeprazole 20 mg PO DAILY 09/05/16 09/05/16 History Oxycodone HCl 15 mg PO QID 09/05/16 09/05/16 History Polyethylene Glycol 3350 17 gm PO DAILY 09/05/16 09/05/16 History Allergies Allergy/AdvReac Type Severity Reaction Status Date / Time codeine Allergy RASH Verified 07/21/16 15:13 Penicillins Allergy RASH Verified 07/21/16 15:13 Medical,Surgical,& Family Hx - Medical History Cardio: History of: CHF, Hypertension, Pacemaker, PVD No history of: Aneurysm, Cardiac Dysrhythmia, Cerebrovascular Disease, Congenital Heart Disease, CAD, [place], Valvular Heart Disease, Cardiovascular Problems Neurology: History of: Cerebrovascular Accident (02/22/2013), TIA (2012) No history of: Seizures Endocrine: History of: Diabetes Mellitus (NIDDM) No history of: Dyslipidemia Rheumatology: History of;: Rheumatoid Arthritis Respiratory: History of: Obstructive Sleep Apnea, Pulmonary Embolism Gastrointestinal: History of: Diverticulitis/ Diverticulosis, GERD No history of: Bowel Obstruction, Clostridium Difficile, Crohn's Disease, Esophageal Varices, Gastrointestinal Bleed, Hemorrhoids, Hematochezia, Hepatitis , Liver Problems, Pancreatitis, Polyps, Ulcerative Colitis, Gastrointestinal Cancer, GI Problems Musculoskeletal: No history of: Amputation Hematology: History of: Clotting Problems (DVT x 2) - Surgical History Cardiac Surgeries: Sugical HX of: Internal Defibrillator (02/22/2013) Thoracic Surgeries: Patient denies;: Organ Transplant Abdominal Surgeries: Surgical HX of: Abdominal Surgery, Cholecystectomy, Colonoscopy, EGD, Hernia Repair (x2) Patient denies: Appendectomy, Gastric Bypass Surgery Reproductive Surgeries: Surgical HX of;: Section Patient denies;: Genitourinary Surgery - Family History Family History: Reports;: Family Cancer (Mother), Family Diabetes (Sister), Family Heart Disease (mother), Family Hypertension (mother, brother, sister), Family Stroke (Mother) - Social History Smoking Status: Former smoker (Quit smoking January last year) Frequency of Alcohol Use: None Type of Drug Use: None - Musculoskeletal Musculoskeletal: Present: other (Rest pain) Exam - Constitutional Vitals: Period Temp Pulse Resp BP Sys/Fuchs Pulse Ox Last 24 Hr 96.5 F-97.4 F 84-86 18-22 79-99/47-62 92-100 General appearance: mild distress, morbidly obese, other (At initial presentation, she's lying in bed with her right leg hanging off the bed. When questioned if she is comfortable in that position, she says she's unaware that it is off the bed. ) - Head Head exam: Present: normocephalic - Eye Eye exam: Absent: nystagmus, scleral icterus - ENT Mouth exam: Present: normal external inspection, normal voice, dry mucosa. Absent: oral lesion - Neck Neck exam: Present: trachea midline - Respiratory Respiratory exam: Present: accessory muscle use, rhonchi. Absent: chest wall tenderness, rales, wheezes - GI/Abdominal GI/Abdominal exam: Present: other (Obese, nontender. Hypoactive bowel sounds. ) - Extremities Exam Extremities exam: Present: other (See general impression above; she gives the initial presentation of lower extremity rest pain, at least on the right. Bilateral lower extremities with 3+ pitting edema. Feet and legs are generally tender to touch; skin is warm and dry proximally but moist at the toes. There are ischemic skin changes from the midfoot distally, with deb ischemia of the right 4th toe and ischemic skin changes with blistering of 2nd through 5th toes at the dorsum and to a lesser degree on 2nd through 5th toes on the left. She has what appears to be superficial ulcerations at the tips of the left 2nd and 3rd toes as well. There is some subtle demarcation of the skin on the dorsum of the toes. There is no drainage or purulence. The more proximal skin is slightly hyperemic. There is no fluctuance to suggest an abscess, although the generalized fullness and edema makes it difficult to palpate a pulse.) - Neurological Exam Neurological exam: Present: alert, other (She cannot recall her symptom, medical or disease history with certainty or consistency. ). Absent: oriented X3 Results - Labs CBC & BMP: 09/06/16 06:09 09/06/16 06:09 Lab Results: I have reviewed the past 24 hour labs
--- NOTE | 2016-09-06 09:21 | Nephrology Progress Note ---
Nephrology - PN: Subj Interval history: Pt states she is no more short of breath than when she came in. Serum CO2 corrected partially with shift of potassium intracellularly to normal range (5.1 ) this am. Creatinine still 6.5. FeUrea 17.7% c/w prerenal azotemia, not intrinsic renal dz (ATN). No uremic symptoms. 2gms proteinuria on random protein to creatinine ratio. Eating breakfast, orange juice taken away by me. Exam (PN)-Nephrology - Vital Signs Vital signs: Period Temp Pulse Resp BP Sys/Fuchs Pulse Ox Last 24 Hr 96.5 F-97.4 F 84-86 18-22 79-99/47-62 92-100 - General Appearance General appearance: well-developed, obese EENT: ATNC, PERRL, mucous membranes dry, hearing intact, vision intact Neck: JVD, no carotid bruit Respiratory: no kyphosis, clear Cardiology: no murmurs, no rub, edema Gastrointestinal: no masses, obese Integumentary: no rash, warm and dry Neurologic: no focal deficit, no asterixis, alert and oriented x3 Musculoskeletal: no deformities, no cyanosis Psychiatric: depressed, cooperative - Lab 09/06/16 06:09 09/06/16 06:09 Most recent lab results Calcium 7.9 MG/DL (8.5-10.1) L 09/06/16 06:09 Assessment and Plan (1) Hyperkalemia Problem details: Multifactorial, including dietary noncompliance and metabolic acidosis. Status: Acute Assessment and plan: Continue D5W +150meq bicarb @125cc/hr. Strict renal diet discussed with nursing staff. Pt is not a chronic dialysis candidate due to poor predicted one year survival and comorbidities. DNR/DNI/hospice. Conservative measures only. Comfort care. Current Visit: No (2) FIDENCIO (acute kidney injury) Problem details: Most likely due to overdiuresis. Status: Acute Assessment and plan: No indication for dialysis. Pt is not a candidate for chronic dialysis due to predicted poor one year survival and comorbidities. Current Visit: Yes (3) CKD (chronic kidney disease) stage 3, GFR 30-59 ml/min Problem details: Due to presumed diabetic nephropathy. Status: Acute Current Visit: Yes (4) NICM (nonischemic cardiomyopathy) Problem details: Poor predicted one year survival. Status: Chronic Assessment and plan: DNR/DNI Current Visit: Yes (5) Diabetes Status: Chronic Current Visit: Yes
[2016-09-06] MEDS: oxyCODONE IR 5 MG TABLET PO SCH ×4 (09:45→22:20)
[2016-09-06] MEDS: PANTOPRAZOLE 40 MG TABLET PO SCH (09:46)
[2016-09-06] MEDS: DULoxetine 30 MG CAPSULE PO SCH (09:46)
[2016-09-06] MEDS: POLYETHYLENE GLYCOL POWDER 17 GM PACK PO SCH (09:46)
[2016-09-06] MEDS: CHOLECALCIFEROL 1,000 UNIT TABLET PO SCH (09:46)
[2016-09-06] MEDS: FOLIC ACID 1 MG TABLET PO SCH (09:46)
[2016-09-06] MEDS: ESTRADIOL 1 MG TABLET PO SCH (09:46)
[2016-09-06] MEDS: DESITIN 4OZ/NYSTATIN 15 GRAM MIXTURE PASTE TOP SCH ×2 (09:47→22:32)
--- NOTE | 2016-09-06 10:43 | Gastrointestinal Consult Note ---
Assessment and Plan (1) Dysphagia Status: Acute Assessment and plan: 09/06-Reports of dysphagia, early satiety. No known prior history of endoscopy in past. Hx of GERD. On Eliquis for hx of DVT. Plan and addendum to follow by Dr Pike. Current Visit: Yes History of Present Illness Chief complaint: Early satiety History of present illness: Ms. Billingsley is a 61 year old female who presented to the hospital with exacerbation of CHF. Pt is a very poor historian and is unable to offer very much history. Information obtained from chart review. Pt has a history of CHF, nonischemic cardiomyopathy, HTN, PVD, CVA, NIDDM, OA, PE, diverticulitis and GERD. She has an implanted ICD as well. She was admitted with edema and SOB. She was inpatient last month at our facility for CHF and was transferred to swing bed at discharge. She was recently discharged from there to home and was reported to have increasingly worse edema to her BLE as well as progressive SOB. Her last echo in Jun showed an EF of 15% at that time. Surgery is following her for gangrenous toes. Upon admission, pt stated that she has been having some dysphagia and reports of filling up fast after eating a few bites of food. Pt is unable to elaborate on this very much today. She is unable to recall any specific abdominal pain or discomfort. Denies any nausea or vomiting. She denies any weight loss. She is noted to be on Eliquis at this time. She cannot recall if she has had prior endoscopy in the past and no known endoscopy noted in facility database. Home Medications Medication Instructions Recorded Confirmed Type Cholecalciferol (Vitamin D3) 5,000 unit PO DAILY 04/30/15 09/05/16 History [Vitamin D3] Nortriptyline [Pamelor] 50 mg PO BEDTIME 12/17/15 09/05/16 History Duloxetine HCl [Duloxetine] 60 mg PO DAILY 06/16/16 09/05/16 History Estradiol [Estradiol Tab] 0.5 mg PO DAILY 06/16/16 09/05/16 History Folic Acid Tab 1 mg PO DAILY 06/16/16 09/05/16 History ALPRAZolam [Xanax] 1 mg PO TID PRN 07/12/16 09/05/16 History Acetaminophen Tab [Tylenol Tab] 325 mg PO Q4H PRN #0 tablet 07/19/16 09/05/16 Rx Alum/Mag/Simeth Max Str Liquid 30 ml PO Q4H PRN #0 07/19/16 09/05/16 Rx [Mylanta Max Strength Liquid] Apixaban [Eliquis] 5 mg PO BID tablet 07/19/16 09/05/16 Rx Docusate Sodium Cap [Colace Cap] 100 mg PO BID PRN #0 capsule 07/19/16 09/05/16 Rx Carvedilol [Coreg] 3.125 mg PO BID 09/05/16 09/05/16 History Digoxin Tab [Lanoxin Tab] 0.125 mg PO DAILY@1300 09/05/16 09/05/16 History Furosemide [Lasix] 20 mg PO BID 09/05/16 09/05/16 History Levothyroxine Tab [Synthroid Tab] 75 mcg PO DAILY@0700 09/05/16 09/05/16 History Lisinopril [Prinivil] 10 mg PO DAILY 09/05/16 09/05/16 History Omeprazole 20 mg PO DAILY 09/05/16 09/05/16 History Oxycodone HCl 15 mg PO QID 09/05/16 09/05/16 History Polyethylene Glycol 3350 17 gm PO DAILY 09/05/16 09/05/16 History Allergies Allergy/AdvReac Type Severity Reaction Status Date / Time codeine Allergy RASH Verified 07/21/16 15:13 Penicillins Allergy RASH Verified 07/21/16 15:13 Medical,Surgical,& Family Hx - Medical History Cardio: History of: CHF, Hypertension, Pacemaker, PVD No history of: Aneurysm, Cardiac Dysrhythmia, Cerebrovascular Disease, Congenital Heart Disease, CAD, AL, Valvular Heart Disease, Cardiovascular Problems Neurology: History of: Cerebrovascular Accident (02/22/2013), TIA (2012) No history of: Seizures Endocrine: History of: Diabetes Mellitus (NIDDM) No history of: Dyslipidemia Rheumatology: History of;: Rheumatoid Arthritis Respiratory: History of: Obstructive Sleep Apnea, Pulmonary Embolism Gastrointestinal: History of: Diverticulitis/ Diverticulosis, GERD No history of: Bowel Obstruction, Clostridium Difficile, Crohn's Disease, Esophageal Varices, Gastrointestinal Bleed, Hemorrhoids, Hematochezia, Hepatitis , Liver Problems, Pancreatitis, Polyps, Ulcerative Colitis, Gastrointestinal Cancer, GI Problems Musculoskeletal: No history of: Amputation Hematology: History of: Clotting Problems (DVT x 2) - Surgical History Cardiac Surgeries: Sugical HX of: Internal Defibrillator (02/22/2013) Thoracic Surgeries: Patient denies;: Organ Transplant Abdominal Surgeries: Surgical HX of: Abdominal Surgery, Cholecystectomy, Colonoscopy, EGD, Hernia Repair (x2) Patient denies: Appendectomy, Gastric Bypass Surgery Reproductive Surgeries: Surgical HX of;: Section Patient denies;: Genitourinary Surgery - Family History Family History: Reports;: Family Cancer (Mother), Family Diabetes (Sister), Family Heart Disease (mother), Family Hypertension (mother, brother, sister), Family Stroke (Mother) - Social History Smoking Status: Former smoker (Quit smoking January last ) Frequency of Alcohol Use: None Type of Drug Use: None ROS unobtainable: due to mental status 12 point system: reviewed and no additional remarkable complaints except as stated Exam - Constitutional Vitals: Period Temp Pulse Resp BP Sys/Fuchs Pulse Ox Last 24 Hr 96.5 F-97.4 F 84-86 18-22 79-99/47-62 92-100 General appearance: no acute distress, morbidly obese - Head Head exam: Present: normal inspection, normocephalic - Eye Eye exam: Present: other (lids and conjunctiva unremarakble). Absent: scleral icterus - ENT ENT exam: Present: normal exam, normal oropharynx - Neck Neck exam: Present: normal inspection - Respiratory Respiratory exam: Present: clear to auscultation bilaterally. Absent: rales, rhonchi, wheezes - Cardiovascular Cardiovascular exam: Present: regular rate and rhythm. Absent: diastolic murmur , JVD, systolic murmur - GI/Abdominal GI/Abdominal exam: Present: normal bowel sounds, soft. Absent: ascites, distended, mass, organomegaly, tenderness - Extremities Exam Extremities exam: Present: normal inspection, full ROM - Back Exam Back exam: Present: normal inspection - Neurological Exam Neurological exam: Present: alert, altered - Psychiatric Psychiatric exam: Present: normal affect, normal mood - Skin Skin exam: Present: normal color, warm, dry Results - Labs CBC & BMP: 09/06/16 06:09 09/06/16 06:09 Lab Results: I have reviewed the past 24 hour labs
--- NOTE | 2016-09-06 14:52 | Cardiology Progress Note ---
Assessment and Plan (1) Acute renal failure Status: Acute Current Visit: Yes (2) Hyperkalemia Problem details: Multifactorial, including dietary noncompliance and metabolic acidosis. Status: Acute Current Visit: No (3) NICM (nonischemic cardiomyopathy) Problem details: Poor predicted one year survival. Status: Chronic Current Visit: Yes (4) Diabetes Status: Chronic Current Visit: Yes Qualifiers: Diabetes mellitus type: type 2 (5) CHF (congestive heart failure) Status: Acute Assessment and plan: See plan in the HPI Current Visit: Yes Qualifiers: Congestive heart failure type: systolic Congestive heart failure chronicity : acute on chronic Qualified Code(s): I50.23 - Acute on chronic systolic ( congestive) heart failure (6) Hyperlipidemia Status: Chronic Current Visit: Yes (7) Obstructive sleep apnea Status: Chronic Current Visit: Yes (8) Debility Status: Acute Current Visit: No (9) Hernia of abdominal wall Status: Acute Current Visit: No (10) History of automatic internal cardiac defibrillator (AICD) Status: Chronic Current Visit: No Cardiology - PN: Subj Interval history: I spent approximately 30 minutes discussing the patient's condition and her plan of care with the patient and her sister. I have also discussed this case on several occasions personally with Dr. Young. Clinically she is doing about the same. There is no change in her dyspnea, she is comfortable at rest and sleeping. There is some improvement in her edema. She does not appear to be volume overloaded. Potassium has improved. Impression and plan: 1. Congestive heart failure-this is acute on chronic secondary to systolic dysfunction.. It is unclear to me at this point what medication she is actually receiving. I tried to confirm whether or not she was taking an DEREK inhibitor prior to admission, she does not recall. She cannot receive an DEREK inhibitor, angiotensin receptor gabriel, due to hyperkalemia now. She is also in acute renal failure. She cannot receive other antihypertensive medications due to hypotension. She appears to be intravascularly volume depleted. 2. Nonischemic cardiomypathy-chronic. See discussion above. 3. Acute renal failure-this could be from her hypotension, medications, intravascular volume depletion, low cardiac output. I appreciate Dr. Young expertise. She seems to be improving with some hydration, although creatinine is stable. 4. Hyperkalemia-this has improved with treatment of her acidemia. 5. Hypotension-this may be from her cardiomyopathy and intravascular volume depletion. We have verified this manually. This will limit some of her care. We will rule out infection, check for blood cultures, pneumonia and UTI. 6. Gangrenous toes-Dr. Clay is a dressing and I appreciate his care. She has a palpable pulse in her right lower extremity, but not in the left. ABIs have been ordered. 7. Edema-this is in 3 out of her 4 limbs. She has a chronic stable left upper extremity DVT. No acute DVTs on vascular ultrasound. This is mildly improved today. 8. Generalized debility-the patient will not be a candidate to return home. Her family is unable to give the care she needs. We will consult social sciences professor. 9. The patient requests to be kept under "DO NOT RESUSCITATE" status. 10. History of deep venous thrombosis-we will need to resume anticoagulation when her renal function has improved. 11. Chronic pain-stable. Exam (Progress Note) - Constitutional Vitals: Period Temp Pulse Resp BP Sys/Fuchs Pulse Ox Last 24 Hr 96.5 F-96.9 F 84-86 18-22 79-99/47-62 92-100 Exam: General appearance: no acute distress, morbidly obese - Head Head exam: Present: normal inspection, normocephalic, atraumatic. Absent: abrasion, contusion, hematoma, laceration - Eye Eye exam: Present: EOMI. Absent: conjunctival injection, nystagmus, periorbital swelling, scleral icterus, laceration to eyelids Pupils: Absent: constricted, dilated, fixed, irregular, unequal - ENT ENT exam: Present: normal exam, normal external ear exam - Neck Neck exam: Present: normal inspection, other (exam is limited by habitus and right internal jugular catheter). Absent: lymphadenopathy, tenderness - Respiratory Respiratory exam: Present: Clear to auscultation bilaterally, other (Oxygen via nasal cannula). Absent: accessory muscle use, chest wall tenderness - Cardiovascular Cardiovascular exam: Present: JVD (unable to assess due to right IJ catheter), regular rate and rhythm. Absent: carotid bruit, diastolic murmur, rubs, systolic murmur - GI/Abdominal GI/Abdominal exam: Present: normal bowel sounds, distended. Absent: firm, guarding, mass, tenderness - Extremities Exam Extremities exam: Present: edema, other (gangrenous toes bilateral lower extremities, 3+ edema in the bilateral lower extremities and left upper extremity) - Back Exam Back exam: Present: other (unable to assess due to patient being obese and weak) - Neurological Exam Neurological exam: Present: alert, oriented X3, somnolent but arousable - Psychiatric Psychiatric exam: Present: flat affect. Absent: agitated, anxious - Skin Skin exam: Present: warm, dry, other (gangrenous toes in the bilateral lower extremities, some ecchymosis in the left upper extremity) Result/EKG - Labs CBC & BMP: 09/06/16 06:09 09/06/16 06:09 Lab Results: I have reviewed the past 24 hour labs Labs: Laboratory Results - last 24 hr 09/05/16 09/05/16 09/05/16 16:02 16:02 18:30 WBC 9.5 RBC 4.54 Hgb 13.9 Hct 43.5 MCV 95.8 MCH 31 MCHC 32.0 RDW 18.3 H Plt Count 110 L MPV 11.4 Neut % (Auto) 67.8 Lymph % (Auto) 19.9 L Marshall % (Auto) 9.6 Eos % (Auto) 1.6 Baso % (Auto) 0.5 Neut # (Auto) 6.4 Lymph # (Auto) 1.9 Marshall # (Auto) 0.9 H Eos # (Auto) 0.2 Baso # (Auto) 0.1 Immature Gran % 0.6 Nucleated RBC % 0.7 Immature Gran # 0.06 Nucleated RBCs # 0.07 Sodium 135 L Potassium 6.9 H* Chloride 109 H Carbon Dioxide 14 L Anion Gap 18.9 H BUN 93 H Creatinine 6.40 H GFR Calculation 11 BUN/Creatinine Ratio 14.00 Glucose 65 L POC Glucose Calculated Osmolality 296.1 Calcium 8.4 L Total Bilirubin 1.10 H AST 21 ALT 17 Alkaline Phosphatase 165 H B-Natriuretic Peptide Total Protein 6.3 L Albumin 2.7 L Globulin 3.6 H Albumin/Globulin Ratio 0.7 L Triglycerides Cholesterol LDL Cholesterol VLDL Cholesterol HDL Cholesterol Heart Disease Risk Ratio Free T4 TSH 3rd Generation 12.200 H Urine Eosinophils 0 Ur Random Creatinine U Random Total Protein Ur Random Urea Nitrogn 09/05/16 09/05/16 09/05/16 20:48 23:23 23:23 WBC RBC Hgb Hct MCV MCH MCHC RDW Plt Count MPV Neut % (Auto) Lymph % (Auto) Marshall % (Auto) Eos % (Auto) Baso % (Auto) Neut # (Auto) Lymph # (Auto) Marshall # (Auto) Eos # (Auto) Baso # (Auto) Immature Gran % Nucleated RBC % Immature Gran # Nucleated RBCs # Sodium 140 Potassium 5.4 H Chloride 109 H Carbon Dioxide 19 L Anion Gap 17.4 H BUN 96 H Creatinine 6.50 H GFR Calculation 11 BUN/Creatinine Ratio 14.00 Glucose 95 POC Glucose Calculated Osmolality 308.4 H Calcium 8.2 L Total Bilirubin AST ALT Alkaline Phosphatase B-Natriuretic Peptide Total Protein Albumin Globulin Albumin/Globulin Ratio Triglycerides Cholesterol LDL Cholesterol VLDL Cholesterol HDL Cholesterol Heart Disease Risk Ratio Free T4 TSH 3rd Generation Urine Eosinophils Ur Random Creatinine 122 U Random Total Protein 221 Ur Random Urea Nitrogn 09/05/16 09/06/16 09/06/16 23:23 06:09 06:09 WBC 6.7 RBC 4.17 Hgb 12.7 Hct 38.6 MCV 92.6 MCH 31 MCHC 32.9 RDW 17.7 H Plt Count 145 D MPV 10.6 Neut % (Auto) 66.9 Lymph % (Auto) 21.4 Marshall % (Auto) 8.0 Eos % (Auto) 2.7 Baso % (Auto) 0.6 Neut # (Auto) 4.5 Lymph # (Auto) 1.4 Marshall # (Auto) 0.5 Eos # (Auto) 0.2 Baso # (Auto) 0.0 Immature Gran % 0.4 Nucleated RBC % 0.7 Immature Gran # 0.03 Nucleated RBCs # 0.05 Sodium 141 Potassium 5.1 Chloride 110 H Carbon Dioxide 18 L Anion Gap 18.1 H BUN 88 H Creatinine 6.50 H GFR Calculation 11 BUN/Creatinine Ratio 13.00 Glucose 86 POC Glucose Calculated Osmolality 306.3 H Calcium 7.9 L Total Bilirubin 0.90 AST 14 ALT 13 Alkaline Phosphatase 141 H B-Natriuretic Peptide Total Protein 5.5 L Albumin 2.4 L Globulin 3.1 Albumin/Globulin Ratio 0.7 L Triglycerides 80 Cholesterol 116 LDL Cholesterol 64.0 VLDL Cholesterol 16.0 HDL Cholesterol 49 Heart Disease Risk Ratio 2.37 Free T4 TSH 3rd Generation Urine Eosinophils Ur Random Creatinine U Random Total Protein Ur Random Urea Nitrogn 319 09/06/16 09/06/16 09/06/16 06:09 06:09 07:14 WBC RBC Hgb Hct MCV MCH MCHC RDW Plt Count MPV Neut % (Auto) Lymph % (Auto) Marshall % (Auto) Eos % (Auto) Baso % (Auto) Neut # (Auto) Lymph # (Auto) Marshall # (Auto) Eos # (Auto) Baso # (Auto) Immature Gran % Nucleated RBC % Immature Gran # Nucleated RBCs # Sodium Potassium Chloride Carbon Dioxide Anion Gap BUN Creatinine GFR Calculation BUN/Creatinine Ratio Glucose POC Glucose 88 Calculated Osmolality Calcium Total Bilirubin AST ALT Alkaline Phosphatase B-Natriuretic Peptide 1271 H Total Protein Albumin Globulin Albumin/Globulin Ratio Triglycerides Cholesterol LDL Cholesterol VLDL Cholesterol HDL Cholesterol Heart Disease Risk Ratio Free T4 0.79 TSH 3rd Generation Urine Eosinophils Ur Random Creatinine U Random Total Protein Ur Random Urea Nitrogn 09/06/16 11:09 WBC RBC Hgb Hct MCV MCH MCHC RDW Plt Count MPV Neut % (Auto) Lymph % (Auto) Marshall % (Auto) Eos % (Auto) Baso % (Auto) Neut # (Auto) Lymph # (Auto) Marshall # (Auto) Eos # (Auto) Baso # (Auto) Immature Gran % Nucleated RBC % Immature Gran # Nucleated RBCs # Sodium Potassium Chloride Carbon Dioxide Anion Gap BUN Creatinine GFR Calculation BUN/Creatinine Ratio Glucose POC Glucose 84 Calculated Osmolality Calcium Total Bilirubin AST ALT Alkaline Phosphatase B-Natriuretic Peptide Total Protein Albumin Globulin Albumin/Globulin Ratio Triglycerides Cholesterol LDL Cholesterol VLDL Cholesterol HDL Cholesterol Heart Disease Risk Ratio Free T4 TSH 3rd Generation Urine Eosinophils Ur Random Creatinine U Random Total Protein Ur Random Urea Nitrogn
[2016-09-06] MEDS: BACITRACIN OINT 0.9 GM PACK TOP SCH (16:30)
[2016-09-06] MEDS: ENOXAPARIN 30 MG/0.3 ML SYRINGE SUBCUT SCH (17:00)
[2016-09-06 17:41] LABS: Apearance,Urine CLOUDY (Clear); Bacteria,Urine Many /HPF (Few); Bilirubin,Urine Negative (Negative); Blood, Urine Moderate mg/dL (Negative); Glucose,Urine (UA) Negative (Negative); Ketones,Urine Negative (Negative); Nitrite,Urine Negative (Negative); Protein,Urine 100 MG/DL; RBC,Urine 6 /HPF (0-4); Squamous Epithelial Cell,Urine Occasional /HPF (0-10); Urine Color Yellow (Yellow); Urine Specific Gravity 1.013 (1.001-1.035); Urine Urobilinogen < 2.0 EU/DL (0.2-1.0); WBC,Urine 465 /HPF (0-6)
[2016-09-06] MEDS: NORTRIPTYLINE 25 MG CAPSULE PO SCH (22:29)
[2016-09-07] MEDS: LEVOTHYROXINE 75 MCG TABLET PO SCH (06:41)
[2016-09-07] MEDS: SODIUM BICARB INJ 150 MEQ in DEXTROSE 5% 850 ML IV SCH ×4 (06:50→22:23)
[2016-09-07 09:03] LABS: Basophils # 0.1 10*3/uL (0.0-0.2); Basophils % 0.7 % (0.0-0.8); Eosinophils # 0.1 10*3/uL (0.0-0.87); Eosinophils % 1.8 % (0.00-10.9); Hematocrit 41.7 VOL% (35.7-47.0); Hemoglobin 13.6 GM/DL (12.0-16.0); Immature Granulocytes % 0.3 %; Immature Granulocytes Absolute 0.02 #; Lymphocytes # 1.3 10*3/uL (1.4-4.0); Lymphocytes % 18.1 % (21.3-54.2); Mean Corpuscular HGB Conc 32.6 GM/DL (32-36); Mean Corpuscular Hemoglobin 30 PG (27-34); Mean Corpuscular Volume 92.5 FL (87-102); Monocytes # 0.6 10*3/uL (0.11-0.8); Monocytes % 9.1 % (1.7-12.7); NRBC # 0.04 10*3/uL; Platelet Count 142 T/CUMM (130-400); Red Blood Count 4.51 MC/CUMM (3.8-5.5); Red Cell Distribution Width 17.7 % (9.3-17.3); White Blood Count 7.1 T/CUMM (4-12)
--- NOTE | 2016-09-07 09:10 | General Surgery Progress Note ---
Assessment and Plan - Time spent with patient Time spent with patient: Less than 30 minutes (1) Edema of both legs Status: Acute Assessment and plan: 09/07/2016. The swelling in the legs persists at this time with the changes on the toes unchanged at this point. Wound care has begun to try to soften and moisturize his up to see what we are dealing with. Vascular studies were completed and they look pretty good showing good indices and good pressures in the feet suggests that these changes may just be due to edema and not necessarily ischemic changes. Time will tell and we will have to just keep a close watch on this process. Current Visit: Yes Subjective Patient reports: Present: no new complaints, afebrile Exam - Constitutional Vitals: Period Temp Pulse Resp BP Sys/Fuchs Pulse Ox Last 24 Hr 96.6 F-97.8 F 77-94 14-20 73-88/35-68 95-100 General appearance: mild distress - Head Head exam: Present: normal inspection - ENT ENT exam: Present: normal exam - Neck Neck exam: Present: normal inspection - Respiratory Respiratory exam: Present: rales, rhonchi - Cardiovascular Cardiovascular exam: Present: RRR - GI/Abdominal GI/Abdominal exam: Present: hypoactive bowel sounds, soft - Extremities Exam Extremities exam: Present: other (Swelling still in the lower extremities with the changes about the toes at this time. These dark changes may not be ischemia may just be the results of all blistering difficult to say at this point. Vascular studies look essentially normal) - Neurological Exam Neurological exam: Present: alert, oriented X3, CN II-XII intact - Skin Skin exam: Present: normal color, warm, dry Results - Labs CBC & BMP: 09/06/16 06:09 09/06/16 06:09 Lab Results: I have reviewed the past 24 hour labs
[2016-09-07 09:38] LABS: Calcium 8.3 MG/DL (8.5-10.1); Magnesium 2.5 MG/DL (1.8-2.4); Osmolality,Calculated 307.4 MOS/KG (273-304); Potassium 4.8 MMOL/L (3.5-5.1)
--- NOTE | 2016-09-07 09:51 | Gastrointestinal Progress Note ---
Assessment and Plan (1) Dysphagia Status: Acute Assessment and plan: 09/07-Dysphagia continues. Plan for upper endoscopy when safe to proceed from cardiology standpoint. Plan and addendum to follow by Dr Pike. 09/06-Reports of dysphagia, early satiety. No known prior history of endoscopy in past. Hx of GERD. On Eliquis for hx of DVT. Plan and addendum to follow by Dr Pike. Current Visit: Yes Gastroenterology - PN: Subj Interval history: CC: Dysphagia Pt is seen awake, more alert and talkative today. Pt sister is at bedside. Pt states she is having continued dysphagia with meals at presen time. Denies any abdominal pain. Denies nausea or vomiting. Abdomen is soft, nontender. Will continue to follow at this time and plan to proceed with upper endoscopy when cardiology feels time is optimal to do so. ROS: Denies SOB or chest pain Exam (Progress Note) - Constitutional Vitals: Period Temp Pulse Resp BP Sys/Fuchs Pulse Ox Last 24 Hr 96.6 F-97.8 F 77-94 14-20 73-88/35-68 95-100 General appearance: no acute distress, morbidly obese - Head Head exam: Present: normal inspection, normocephalic - Eye Eye exam: Present: other (lids and conjunctiva unremarkable). Absent: scleral icterus - ENT ENT exam: Present: normal exam, normal oropharynx - Neck Neck exam: Present: normal inspection - Respiratory Respiratory exam: Present: clear to auscultation bilaterally. Absent: rales, rhonchi, wheezes - Cardiovascular Cardiovascular exam: Present: regular rate and rhythm. Absent: diastolic murmur , JVD, systolic murmur - GI/Abdominal GI/Abdominal exam: Present: normal bowel sounds, soft. Absent: ascites, distended, mass, organomegaly, tenderness - Extremities Exam Extremities exam: Present: normal inspection, full ROM - Back Exam Back exam: Present: normal inspection - Neurological Exam Neurological exam: Present: alert, oriented X3 - Psychiatric Psychiatric exam: Present: normal affect, normal mood - Skin Skin exam: Present: normal color, warm, dry Results - Labs CBC & BMP: 09/07/16 08:55 09/07/16 08:55 Lab Results: I have reviewed the past 24 hour labs
[2016-09-07] MEDS: CHOLECALCIFEROL 1,000 UNIT TABLET PO SCH (10:53)
[2016-09-07] MEDS: DULoxetine 30 MG CAPSULE PO SCH (10:54)
[2016-09-07] MEDS: ESTRADIOL 1 MG TABLET PO SCH (10:54)
[2016-09-07] MEDS: oxyCODONE IR 5 MG TABLET PO SCH ×4 (10:55→23:43)
[2016-09-07] MEDS: PANTOPRAZOLE 40 MG TABLET PO SCH (10:55)
[2016-09-07] MEDS: FOLIC ACID 1 MG TABLET PO SCH (10:55)
[2016-09-07] MEDS: DESITIN 4OZ/NYSTATIN 15 GRAM MIXTURE PASTE TOP SCH ×2 (10:56→22:24)
--- NOTE | 2016-09-07 11:10 | Nephrology Progress Note ---
Nephrology - PN: Subj Interval history: Pt more alert this am. Creatinine essentially unchanged. Less acidotic. Denies worsening SOB. UA with pyuria, culture pending. Exam (PN)-Nephrology - Vital Signs Vital signs: Period Temp Pulse Resp BP Sys/Fuchs Pulse Ox Last 24 Hr 96.6 F-97.8 F 77-94 14-20 73-88/35-68 95-100 - General Appearance General appearance: well-developed, obese EENT: ATNC, PERRL, mucous membranes dry, hearing intact, vision intact Neck: JVD, supple Respiratory: no kyphosis, clear Cardiology: no murmurs, no rub, edema Gastrointestinal: normoactive bowel sounds, no tenderness Integumentary: no rash, warm and dry Neurologic: no focal deficit, no asterixis Musculoskeletal: no deformities, no cyanosis Psychiatric: depressed, cooperative - Lab 09/07/16 08:55 09/07/16 08:55 Most recent lab results Calcium 8.3 MG/DL (8.5-10.1) L 09/07/16 08:55 Magnesium 2.5 MG/DL (1.8-2.4) H 09/07/16 08:55 Assessment and Plan (1) UTI (urinary tract infection) Problem details: start levofloxacin 500mg iv now, then 250mg IVPB q48hrs empirically pending culture results. Status: Acute Current Visit: No (2) Hyperkalemia Problem details: Multifactorial, including dietary noncompliance and metabolic acidosis. [place] juice once again on breakfast tray, empty. Status: Acute Assessment and plan: Continue D5W +150meq bicarb @125cc/hr. Strict renal diet discussed with nursing staff. Pt is not a chronic dialysis candidate due to poor predicted one year survival and comorbidities. DNR/DNI/hospice. Conservative measures only. Comfort care. Current Visit: No (3) FIDENCIO (acute kidney injury) Problem details: Most likely due to overdiuresis. Status: Acute Assessment and plan: No indication for dialysis. Pt is not a candidate for chronic dialysis due to predicted poor one year survival and comorbidities. Current Visit: Yes (4) CKD (chronic kidney disease) stage 3, GFR 30-59 ml/min Problem details: Due to presumed diabetic nephropathy. Status: Acute Current Visit: Yes (5) NICM (nonischemic cardiomyopathy) Problem details: Poor predicted one year survival. Status: Chronic Assessment and plan: DNR/DNI Current Visit: Yes (6) Diabetes Status: Chronic Current Visit: Yes Qualifiers: Diabetes mellitus type: type 2
[2016-09-07] MEDS ORDERED: LEVOFLOXACIN INJ 500 MG in PREMIX 1 EACH IV ONE (11:12)
[2016-09-07] MEDS: POLYETHYLENE GLYCOL POWDER 17 GM PACK PO SCH (11:30)
[2016-09-07] MEDS: ENOXAPARIN 30 MG/0.3 ML SYRINGE SUBCUT SCH (17:00)
[2016-09-07] MEDS: BACITRACIN OINT 0.9 GM PACK TOP SCH (18:28)
--- NOTE | 2016-09-07 21:21 | Cardiology Progress Note ---
Assessment and Plan (1) Acute renal failure Status: Acute Current Visit: Yes (2) Hyperkalemia Problem details: Multifactorial, including dietary noncompliance and metabolic acidosis. Porter juice once again on breakfast tray, empty. Status: Acute Current Visit: No (3) NICM (nonischemic cardiomyopathy) Problem details: Poor predicted one year survival. Status: Chronic Current Visit: Yes (4) Diabetes Status: Chronic Current Visit: Yes Qualifiers: Diabetes mellitus type: type 2 (5) CHF (congestive heart failure) Status: Acute Assessment and plan: See plan in the HPI Current Visit: Yes Qualifiers: Congestive heart failure type: systolic Congestive heart failure chronicity : acute on chronic Qualified Code(s): I50.23 - Acute on chronic systolic ( congestive) heart failure (6) Hyperlipidemia Status: Chronic Current Visit: Yes (7) Obstructive sleep apnea Status: Chronic Current Visit: Yes (8) Debility Status: Acute Current Visit: No (9) Hernia of abdominal wall Status: Acute Current Visit: No (10) History of automatic internal cardiac defibrillator (AICD) Status: Chronic Current Visit: No (11) UTI (urinary tract infection) Problem details: start levofloxacin 500mg iv now, then 250mg IVPB q48hrs empirically pending culture results. Status: Acute Current Visit: No Cardiology - PN: Subj Interval history: The patient was seen earlier today, this is a late entry. Overall evening was uneventful. She has no new complaints. She's been started on antibiotics. Breathing overall is unchanged, she denies chest pain. Impression and plan: 1. Congestive heart failure-It is unclear to me at this point what medication she is actually receiving. I tried to confirm whether or not she was taking an DEREK inhibitor prior to admission, she does not recall. She cannot receive an DEREK inhibitor, angiotensin receptor gabriel, due to hyperkalemia now. She is also in acute renal failure. She cannot receive other antihypertensive medications due to hypotension. She appears to be intravascularly volume depleted with peripheral edema. 2. Nonischemic cardiomypathy-chronic. See discussion above. 3. Acute renal failure-this could be from her hypotension, medications, intravascular volume depletion, low cardiac output. I appreciate Dr. Young expertise. She seems to be improving with some hydration, although creatinine is stable. 4. Hyperkalemia-this has improved with treatment of her acidemia. 5. Hypotension-this may be from her cardiomyopathy and intravascular volume depletion, possibly an element of her urinary tract infection. She is currently stable and improving. 6. Gangrenous toes-Dr. Clay is a dressing and I appreciate his care. Compression dressings are in place. 7. Edema-this is in 3 out of her 4 limbs. She has a chronic stable left upper extremity DVT. No acute DVTs on vascular ultrasound. This is mildly improved today. 8. Generalized debility-the patient will not be a candidate to return home. Her family is unable to give the care she needs. We will consult social welfare administrator. We will consult physical therapy. 9. The patient requests to be kept under "DO NOT RESUSCITATE" status. 10. History of deep venous thrombosis-we will need to resume anticoagulation when her renal function has improved. Because of her acute renal failure, her Eliquis has been held and she is only receiving prophylactic Lovenox. 11. Chronic pain-stable. 12. Urinary tract infection-antibiotics been initiated. Exam (Progress Note) - Constitutional Vitals: Period Temp Pulse Resp BP Sys/Fuchs Pulse Ox Last 24 Hr 96.8 F-97.9 F 77-102 18-20 73-91/35-62 95-100 Exam: General appearance: no acute distress, morbidly obese - Head Head exam: Present: normal inspection, normocephalic, atraumatic. Absent: abrasion, contusion, hematoma, laceration - Eye Eye exam: Present: EOMI. Absent: conjunctival injection, nystagmus, periorbital swelling, scleral icterus, laceration to eyelids Pupils: Absent: constricted, dilated, fixed, irregular, unequal - ENT ENT exam: Present: normal exam, normal external ear exam - Neck Neck exam: Present: normal inspection, other (exam is limited by habitus and right internal jugular catheter). Absent: lymphadenopathy, tenderness - Respiratory Respiratory exam: Present: Clear to auscultation bilaterally, other (Oxygen via nasal cannula). Absent: accessory muscle use, chest wall tenderness - Cardiovascular Cardiovascular exam: Present: JVD (unable to assess due to right IJ catheter), regular rate and rhythm. Absent: carotid bruit, diastolic murmur, rubs, systolic murmur - GI/Abdominal GI/Abdominal exam: Present: normal bowel sounds, distended. Absent: firm, guarding, mass, tenderness - Extremities Exam Extremities exam: Present: edema, other (gangrenous toes bilateral lower extremities, 3+ edema in the bilateral lower extremities and left upper extremity), compression dressings intact to bilateral lower extremities. - Back Exam Back exam: Present: other (unable to assess due to patient being obese and weak) - Neurological Exam Neurological exam: Present: alert, oriented X3, somnolent but arousable - Psychiatric Psychiatric exam: Present: flat affect. Absent: agitated, anxious - Skin Skin exam: Present: warm, dry, other (gangrenous toes in the bilateral lower extremities, some ecchymosis in the left upper extremity) Result/EKG - Labs CBC & BMP: 09/07/16 08:55 09/07/16 08:55 Lab Results: I have reviewed the past 24 hour labs Labs: Laboratory Results - last 24 hr 09/07/16 09/07/16 08:55 08:55 WBC 7.1 RBC 4.51 Hgb 13.6 Hct 41.7 MCV 92.5 MCH 30 MCHC 32.6 RDW 17.7 H Plt Count 142 MPV 11.0 Neut % (Auto) 70.0 Lymph % (Auto) 18.1 L [place] % (Auto) 9.1 Eos % (Auto) 1.8 Baso % (Auto) 0.7 Neut # (Auto) 5.0 Lymph # (Auto) 1.3 L [place] # (Auto) 0.6 Eos # (Auto) 0.1 Baso # (Auto) 0.1 Immature Gran % 0.3 Nucleated RBC % 0.6 Immature Gran # 0.02 Nucleated RBCs # 0.04 Sodium 140 Potassium 4.8 Chloride 103 Carbon Dioxide 27 Anion Gap 14.8 BUN 93 H Creatinine 6.70 H GFR Calculation 11 BUN/Creatinine Ratio 13.00 Glucose 93 Calculated Osmolality 307.4 H Calcium 8.3 L Magnesium 2.5 H
[2016-09-07] MEDS: NORTRIPTYLINE 25 MG CAPSULE PO SCH (22:23)
[2016-09-08] MEDS: SODIUM BICARB INJ 150 MEQ in DEXTROSE 5% 850 ML IV SCH (03:49)
[2016-09-08 05:24] LABS: Basophils % 0.5 % (0.0-0.8); Eosinophils # 0.1 10*3/uL (0.0-0.87); Eosinophils % 1.8 % (0.00-10.9); Hematocrit 39.3 VOL% (35.7-47.0); Hemoglobin 13.3 GM/DL (12.0-16.0); Immature Granulocytes % 0.5 %; Immature Granulocytes Absolute 0.04 #; Lymphocytes # 1.7 10*3/uL (1.4-4.0); Lymphocytes % 21.5 % (21.3-54.2); Mean Corpuscular HGB Conc 33.8 GM/DL (32-36); Mean Corpuscular Hemoglobin 30 PG (27-34); Mean Corpuscular Volume 89.9 FL (87-102); Mean Platelet Volume 12.6 FL (9.6-12.0); Monocytes # 0.7 10*3/uL (0.11-0.8); Monocytes % 9.6 % (1.7-12.7); NRBC # 0.03 10*3/uL; Neutrophils # 5.1 10*3/uL (1.4-7.4); Neutrophils % 66.1 % (38.7-73.9); Platelet Count 207 T/CUMM (130-400); Red Blood Count 4.37 MC/CUMM (3.8-5.5); Red Cell Distribution Width 18.6 % (9.3-17.3); White Blood Count 7.7 T/CUMM (4-12)
[2016-09-08] MEDS: LEVOTHYROXINE 75 MCG TABLET PO SCH (06:11)
--- NOTE | 2016-09-08 07:42 | Ultrasound Report ---
US renal Bilateral Indication: Acute renal failure. UTI. Comparison: Renal ultrasound 07/12/2016. Technique: Using transcutaneous probe, routine renal ultrasound was performed. Ultrasound images were captured and stored. Findings: Right kidney measures 11.7 cm in craniocaudal dimension. Left kidney measures 10.4 cm in craniocaudal dimension. Neither kidney demonstrates evidence of hydronephrosis, perinephric fluid collection, or focal mass. Impression: 1. No significant interval change in appearance of the kidneys. No acute findings. 09/08/2016 7:38 AM PROCEDURE INTERPRETED AT [facility] DEPARTMENT OF RADIOLOGY Final Report Signed by: Dr. Saturnino Bernstein
[2016-09-08 08:27] LABS: Calcium 8.4 MG/DL (8.5-10.1); Magnesium 2.3 MG/DL (1.8-2.4); Osmolality,Calculated 299.8 MOS/KG (273-304); Potassium 4.5 MMOL/L (3.5-5.1)
--- NOTE | 2016-09-08 09:06 | General Surgery Progress Note ---
Assessment and Plan - Time spent with patient Time spent with patient: Less than 30 minutes (1) Ischemia of both lower extremities Status: Acute Assessment and plan: 09/08/16 Ischemic skin changes of bilateral lower extremities with edema and chronic venous congestion. These changes are stable without signs of infection. OK from our standpoint to gently increase the compression in order to control edema. We will watch the skin changes closely, not favoring any aggressive surgical intervention, given her overall medical comorbidities. Ischemic changes with rest pain of bilateral lower extremities. At this point, we'll get noninvasive vascular studies, then institute local care to protect the skin from further breakdown and infection as we wait for these areas to declare themselves. She's definitely not a good surgical candidate, given her low cardiac ejection fraction and hospice state, so we will try to be as conservative as possible. Current Visit: Yes (2) Edema of both legs Status: Acute Assessment and plan: Again, she likely will have continued edema, both from her morbid truncal obesity and dependent venous stasis. We will want to gently offer support while taking care to prevent constricting the arterial flow. This will be an ongoing problem and will need dedicated gentle and knowledgeable compression, as edema will exacerbate the low flow state, and incorrectly applied compression will inhibit it. Current Visit: Yes (3) Chronic deep vein thrombosis (DVT) of left upper extremity Status: Acute Assessment and plan: Left upper extremity with doppler proven chronic cephalic DVT. She's on Eliquis. We will continue to support and elevate the extremity, watching for secondary problems. Current Visit: Yes Subjective Patient reports: Present: other (Pt complains of pain in both lower extremities. ) Exam - Constitutional Vitals: Period Temp Pulse Resp BP Sys/Fuchs Pulse Ox Last 24 Hr 97.3 F-98.1 F 99-114 20-20 90-146/50-71 92-99 General appearance: morbidly obese, other (Pt is delusional; she is alone in the room yet speaking to non present family members and staff as if they were present. She is not in any apparent respiratory or cardiac distress.) - ENT Mouth exam: Present: dry mucosa - Respiratory Respiratory exam: Present: rhonchi. Absent: wheezes - Extremities Exam Extremities exam: Present: other (BLE edema is slightly less, however she now has some weeping of the right lateral calf with a small superficial skin abrasion. Right lateral foot and right distal foot with gross ischemic changes present but stable without drainage. Left leg is slightly less swollen and there is no weeping. Left toes with abrasions but no drainage. Left ischemic toes are stable. ) Results - Labs CBC & BMP: 09/08/16 04:46 09/08/16 07:44 Lab Results: I have reviewed the past 24 hour labs (Labs noted; waveform shows minimal decreased inflow but adequate for healing.)
--- NOTE | 2016-09-08 10:08 | Gastrointestinal Progress Note ---
Assessment and Plan (1) Dysphagia Status: Acute Assessment and plan: 09/08-No changes at present time. Continue to monitor and proceed with EGD when able. Plan and addendum to follow by Dr Pike. 09/07-Dysphagia continues. Plan for upper endoscopy when safe to proceed from cardiology standpoint. Plan and addendum to follow by Dr Pike. 09/06-Reports of dysphagia, early satiety. No known prior history of endoscopy in past. Hx of GERD. On Eliquis for hx of DVT. Plan and addendum to follow by Dr Pike. Current Visit: Yes Gastroenterology - PN: Subj Interval history: CC: Dysphagia Pt is seen, awake, however she is noted to be confused and agitated slightly this morning. She complains of a baby crying in her room all night keeping her awake and is asking to see the baby. Pt assured there was no baby present and pt became agitated. She states she has had nothing to eat "in a while" and is hungry. She is currently receiving a diabetic diet. Abdomen is soft, nontender. ROS: Denies SOB or chest pain Exam (Progress Note) - Constitutional Vitals: Period Temp Pulse Resp BP Sys/Fuchs Pulse Ox Last 24 Hr 97.3 F-98.1 F 99-114 20-20 90-146/50-71 92-99 General appearance: normal weight, no acute distress - Head Head exam: Present: normal inspection, normocephalic - Eye Eye exam: Present: other (lids and conjunctiva unremarakable). Absent: scleral icterus - ENT ENT exam: Present: normal exam, normal oropharynx - Neck Neck exam: Present: normal inspection - Respiratory Respiratory exam: Present: clear to auscultation bilaterally. Absent: rales, rhonchi, wheezes - Cardiovascular Cardiovascular exam: Present: regular rate and rhythm. Absent: diastolic murmur , JVD, systolic murmur - GI/Abdominal GI/Abdominal exam: Present: normal bowel sounds, soft. Absent: ascites, distended, mass, organomegaly, tenderness - Extremities Exam Extremities exam: Present: normal inspection, full ROM - Back Exam Back exam: Present: normal inspection - Neurological Exam Neurological exam: Present: alert, altered - Psychiatric Psychiatric exam: Present: agitated - Skin Skin exam: Present: normal color, warm, dry Results - Labs CBC & BMP: 09/08/16 04:46 09/08/16 07:44 Lab Results: I have reviewed the past 24 hour labs
--- NOTE | 2016-09-08 10:18 | Nephrology Progress Note ---
Nephrology - PN: Subj Interval history: Pt visiting with friends on am rounds. She denies SOB/pain. SaO2 down a little this am. Exam (PN)-Nephrology - Vital Signs Vital signs: Period Temp Pulse Resp BP Sys/Fuchs Pulse Ox Last 24 Hr 97.3 F-98.1 F 99-114 20-20 90-146/50-71 92-99 - General Appearance General appearance: well-developed, obese EENT: ATNC, PERRL, mucous membranes moist, hearing intact, vision intact Neck: JVD, no thyromegaly Respiratory: no kyphosis, clear Cardiology: no murmurs, no rub, edema Gastrointestinal: normoactive bowel sounds, no tenderness, obese Integumentary: no rash, warm and dry Neurologic: no focal deficit, no asterixis Musculoskeletal: no deformities, no erythema - Lab 09/08/16 04:46 09/08/16 07:44 Most recent lab results Calcium 8.4 MG/DL (8.5-10.1) L 09/08/16 07:44 Magnesium 2.3 MG/DL (1.8-2.4) 09/08/16 07:44 Assessment and Plan (1) UTI (urinary tract infection) Problem details: start levofloxacin 500mg iv now, then 250mg IVPB q48hrs empirically pending culture results. Status: Acute Current Visit: No (2) Hyperkalemia Problem details: Multifactorial, including dietary noncompliance and metabolic acidosis. Status: Acute Assessment and plan: Decrease D5W +150meq bicarb to 50cc/hr. Strict renal diet. Pt is not a chronic dialysis candidate due to poor predicted one year survival and comorbidities. DNR/DNI/hospice. Conservative measures only. Comfort care. Current Visit: No (3) FIDENCIO (acute kidney injury) Problem details: Stable to improved. Status: Acute Assessment and plan: No indication for dialysis. Pt is not a candidate for chronic dialysis due to predicted poor one year survival and comorbidities. Current Visit: Yes (4) CKD (chronic kidney disease) stage 3, GFR 30-59 ml/min Problem details: Due to presumed diabetic nephropathy. Status: Acute Current Visit: Yes (5) NICM (nonischemic cardiomyopathy) Problem details: Poor predicted one year survival. Status: Chronic Assessment and plan: DNR/DNI Current Visit: Yes (6) Diabetes Status: Chronic Current Visit: Yes Qualifiers: Diabetes mellitus type: type 2
[2016-09-08] MEDS: ESTRADIOL 1 MG TABLET PO SCH (10:21)
[2016-09-08] MEDS: oxyCODONE IR 5 MG TABLET PO SCH ×4 (10:21→20:38)
[2016-09-08] MEDS: FOLIC ACID 1 MG TABLET PO SCH (10:22)
[2016-09-08] MEDS: CHOLECALCIFEROL 1,000 UNIT TABLET PO SCH (10:22)
[2016-09-08] MEDS: PANTOPRAZOLE 40 MG TABLET PO SCH (10:23)
[2016-09-08] MEDS: DULoxetine 30 MG CAPSULE PO SCH (10:23)
[2016-09-08] MEDS: BACITRACIN OINT 0.9 GM PACK TOP SCH (10:25)
[2016-09-08] MEDS: POLYETHYLENE GLYCOL POWDER 17 GM PACK PO SCH (10:25)
[2016-09-08] MEDS: DESITIN 4OZ/NYSTATIN 15 GRAM MIXTURE PASTE TOP SCH ×2 (10:25→20:41)
[2016-09-08] MEDS: SODIUM ACETATE IV SCH (13:45)
[2016-09-08] MEDS: DEXTROSE 5% IV SCH (13:45)
--- NOTE | 2016-09-08 14:06 | Case Mgmt Physician Query Form ---
TB Signs and Symptoms Screening ([place]) INSTRUCTIONS: To be completed annually on residents/staff with a significant Tuberculin Skin Test (TST) upon admission/hire or a prior significant TST. To be completed on all staff at hire. Please respond to each listed symptom with an (X) in either the "YES" or "NO" box. Do you currently have any of the following symptoms: YES NO ( ) (x ) A cough If yes, is it: ( ) Productive ( ) Non- productive ( ) ( x) Hemoptysis (spitting up blood) ( ) ( x) Chest pains ( ) ( x) Weight Loss ( ) ( x) Fever ( ) (x ) Night Sweats ( ) (x ) Weakness ( ) (x ) Loss of Appetite ( ) ( x) Difficulty Breathing If you answered YES" to any of the above questions, how long have symptoms been present? Comments: If you have any questions, please contact me. thank you, Landen Moreno RN Case Manager O:[phone] P: [phone] F: [phone] [email or web address]
[2016-09-08] MEDS ORDERED: TUBERCULIN SKIN TEST 0.1 ML SYRINGE INTRADERM ONE (14:56)
--- NOTE | 2016-09-08 15:31 | Cardiology Progress Note ---
Assessment and Plan (1) Acute renal failure Status: Acute Current Visit: Yes (2) Hyperkalemia Problem details: Multifactorial, including dietary noncompliance and metabolic acidosis. Status: Acute Current Visit: No (3) NICM (nonischemic cardiomyopathy) Problem details: Poor predicted one year survival. Status: Chronic Current Visit: Yes (4) Diabetes Status: Chronic Current Visit: Yes Qualifiers: Diabetes mellitus type: type 2 (5) CHF (congestive heart failure) Status: Acute Assessment and plan: See plan in the HPI Current Visit: Yes Qualifiers: Congestive heart failure type: systolic Congestive heart failure chronicity : acute on chronic Qualified Code(s): I50.23 - Acute on chronic systolic ( congestive) heart failure (6) Hyperlipidemia Status: Chronic Current Visit: Yes (7) Obstructive sleep apnea Status: Chronic Current Visit: Yes (8) Debility Status: Acute Current Visit: No (9) Hernia of abdominal wall Status: Acute Current Visit: No (10) History of automatic internal cardiac defibrillator (AICD) Status: Chronic Current Visit: No (11) UTI (urinary tract infection) Problem details: start levofloxacin 500mg iv now, then 250mg IVPB q48hrs empirically pending culture results. Status: Acute Current Visit: No Cardiology - PN: Subj Interval history: Evening was uneventful. She has no new complaints today. Her BiPAP has been taken off. Impression and plan: 1. Congestive heart failure-It is unclear to me at this point what medication she is actually receiving. I tried to confirm whether or not she was taking an DEREK inhibitor prior to admission, she does not recall. She cannot receive an DEREK inhibitor, angiotensin receptor gabriel, due to hyperkalemia now. She is also in acute renal failure. She cannot receive other antihypertensive medications due to hypotension. She appears to be intravascularly volume depleted with peripheral edema. I'm going to decrease her IV fluids as she seems to be less intravascularly depleted today. 2. Nonischemic cardiomypathy-chronic. See discussion above. 3. Acute renal failure-this could be from her hypotension, medications, intravascular volume depletion, low cardiac output. I appreciate Dr. Young expertise. She seems to be improving with some hydration, although creatinine is stable. 4. Hyperkalemia-this has improved with treatment of her acidemia. 5. Hypotension-this may be from her cardiomyopathy and intravascular volume depletion, possibly an element of her urinary tract infection. She is currently stable and improving. 6. Gangrenous toes-Dr. Clya is a dressing and I appreciate his care. Compression dressings are in place. 7. Edema-this is in 3 out of her 4 limbs with seems to be improving. She has a chronic stable left upper extremity DVT. No acute DVTs on vascular ultrasound. This is mildly improved today. 8. Generalized debility-the patient will not be a candidate to return home. Her family is unable to give the care she needs. We will consult social media marketing analyst. We will consult physical therapy. 9. The patient requests to be kept under "DO NOT RESUSCITATE" status. 10. History of deep venous thrombosis-we will need to resume anticoagulation when her renal function has improved. Because of her acute renal failure, her Eliquis has been held and she is only receiving prophylactic Lovenox. 11. Chronic pain-stable. 12. Urinary tract infection-antibiotics been initiated. Exam (Progress Note) - Constitutional Vitals: Period Temp Pulse Resp BP Sys/Fuchs Pulse Ox Last 24 Hr 97.4 F-98.6 F 99-115 20-20 87-146/50-71 90-99 Exam: General appearance: no acute distress, morbidly obese - Head Head exam: Present: normal inspection, normocephalic, atraumatic. Absent: abrasion, contusion, hematoma, laceration - Eye Eye exam: Present: EOMI. Absent: conjunctival injection, nystagmus, periorbital swelling, scleral icterus, laceration to eyelids Pupils: Absent: constricted, dilated, fixed, irregular, unequal - ENT ENT exam: Present: normal exam, normal external ear exam - Neck Neck exam: Present: normal inspection, other (exam is limited by habitus and right internal jugular catheter). Absent: lymphadenopathy, tenderness - Respiratory Respiratory exam: Present: Clear to auscultation bilaterally, other (Oxygen via nasal cannula). Absent: accessory muscle use, chest wall tenderness - Cardiovascular Cardiovascular exam: Present: JVD (unable to assess due to right IJ catheter), regular rate and rhythm. Absent: carotid bruit, diastolic murmur, rubs, systolic murmur - GI/Abdominal GI/Abdominal exam: Present: normal bowel sounds, distended. Absent: firm, guarding, mass, tenderness - Extremities Exam Extremities exam: Present: edema, other (gangrenous toes bilateral lower extremities, 3+ edema in the bilateral lower extremities and left upper extremity), - Back Exam Back exam: Present: other (unable to assess due to patient being obese and weak) - Neurological Exam Neurological exam: Present: alert, oriented X3, somnolent but arousable - Psychiatric Psychiatric exam: Present: flat affect. Absent: agitated, anxious - Skin Skin exam: Present: warm, dry, other (gangrenous toes in the bilateral lower extremities, some ecchymosis in the left upper extremity) Result/EKG - Labs CBC & BMP: 09/08/16 04:46 09/08/16 07:44 Lab Results: I have reviewed the past 24 hour labs Labs: Laboratory Results - last 24 hr 09/08/16 09/08/16 04:46 07:44 WBC 7.7 RBC 4.37 Hgb 13.3 Hct 39.3 MCV 89.9 MCH 30 MCHC 33.8 RDW 18.6 H Plt Count 207 D MPV 12.6 H Neut % (Auto) 66.1 Lymph % (Auto) 21.5 [place] % (Auto) 9.6 Eos % (Auto) 1.8 Baso % (Auto) 0.5 Neut # (Auto) 5.1 Lymph # (Auto) 1.7 [place] # (Auto) 0.7 Eos # (Auto) 0.1 Baso # (Auto) 0.0 Immature Gran % 0.5 Nucleated RBC % 0.4 Immature Gran # 0.04 Nucleated RBCs # 0.03 Sodium 137 Potassium 4.5 Chloride 102 Carbon Dioxide 25 Anion Gap 14.5 BUN 90 H Creatinine 6.40 H GFR Calculation 11 BUN/Creatinine Ratio 14.00 Glucose 86 Calculated Osmolality 299.8 Calcium 8.4 L Magnesium 2.3
[2016-09-08] MEDS: ENOXAPARIN 30 MG/0.3 ML SYRINGE SUBCUT SCH (16:32)
[2016-09-08] MEDS: NORTRIPTYLINE 25 MG CAPSULE PO SCH (20:38)
[2016-09-09] MEDS: LEVOTHYROXINE 75 MCG TABLET PO SCH (06:04)
[2016-09-09 07:36] LABS: Basophils % 0.4 % (0.0-0.8); Eosinophils # 0.1 10*3/uL (0.0-0.87); Eosinophils % 1.3 % (0.00-10.9); Hematocrit 38.4 VOL% (35.7-47.0); Immature Granulocytes % 0.4 %; Immature Granulocytes Absolute 0.03 #; Lymphocytes # 1.5 10*3/uL (1.4-4.0); Lymphocytes % 22.4 % (21.3-54.2); Mean Corpuscular HGB Conc 33.9 GM/DL (32-36); Mean Corpuscular Hemoglobin 30 PG (27-34); Mean Corpuscular Volume 89.1 FL (87-102); Mean Platelet Volume 10.5 FL (9.6-12.0); Monocytes # 0.6 10*3/uL (0.11-0.8); Monocytes % 9.4 % (1.7-12.7); NRBC # 0.03 10*3/uL; Neutrophils # 4.5 10*3/uL (1.4-7.4); Neutrophils % 66.1 % (38.7-73.9); Platelet Count 155 T/CUMM (130-400); Red Blood Count 4.31 MC/CUMM (3.8-5.5); Red Cell Distribution Width 16.9 % (9.3-17.3); White Blood Count 6.8 T/CUMM (4-12)
[2016-09-09 08:09] LABS: Calcium 8.3 MG/DL (8.5-10.1); Magnesium 2.2 MG/DL (1.8-2.4); Osmolality,Calculated 305.3 MOS/KG (273-304); Potassium 4.2 MMOL/L (3.5-5.1)
[2016-09-09] MEDS: CHOLECALCIFEROL 1,000 UNIT TABLET PO SCH (08:41)
[2016-09-09] MEDS: DESITIN 4OZ/NYSTATIN 15 GRAM MIXTURE PASTE TOP SCH ×2 (08:41→21:10)
[2016-09-09] MEDS: oxyCODONE IR 5 MG TABLET PO SCH ×4 (08:42→21:07)
[2016-09-09] MEDS: DULoxetine 30 MG CAPSULE PO SCH (08:42)
[2016-09-09] MEDS: FOLIC ACID 1 MG TABLET PO SCH (08:42)
[2016-09-09] MEDS: PANTOPRAZOLE 40 MG TABLET PO SCH (08:42)
[2016-09-09] MEDS: ESTRADIOL 1 MG TABLET PO SCH (08:42)
[2016-09-09] MEDS: POLYETHYLENE GLYCOL POWDER 17 GM PACK PO SCH (08:43)
--- NOTE | 2016-09-09 09:02 | General Surgery Progress Note ---
Assessment and Plan (1) Ischemia of both lower extremities Status: Acute Assessment and plan: 09/09/16 Stable ischemic changes of distal lower extremities. There is demarcation slowly emerging, with some early superficial skin slough, which should allow better assessment of the degree of deep tissue loss. We will still moisturize and protect these areas, realizing she is a poor surgical risk. Preventing infection will be of primary importance once there is exposed deep tissue. 09/08/16 Ischemic skin changes of bilateral lower extremities with edema and chronic venous congestion. These changes are stable without signs of infection. OK from our standpoint to gently increase the compression in order to control edema. We will watch the skin changes closely, not favoring any aggressive surgical intervention, given her overall medical comorbidities. Ischemic changes with rest pain of bilateral lower extremities. At this point, we'll get noninvasive vascular studies, then institute local care to protect the skin from further breakdown and infection as we wait for these areas to declare themselves. She's definitely not a good surgical candidate, given her low cardiac ejection fraction and hospice state, so we will try to be as conservative as possible. Current Visit: Yes (2) Edema of both legs Status: Acute Assessment and plan: 09/09/16 Bilateral lower extremity edema with likely chronic venous stasis, which is responding well to compression. We will continue this and observe for changes. Again, she likely will have continued edema, both from her morbid truncal obesity and dependent venous stasis. We will want to gently offer support while taking care to prevent constricting the arterial flow. This will be an ongoing problem and will need dedicated gentle and knowledgeable compression, as edema will exacerbate the low flow state, and incorrectly applied compression will inhibit it. Current Visit: Yes (3) Chronic deep vein thrombosis (DVT) of left upper extremity Status: Acute Assessment and plan: 09/09/16 Left arm DVT-stable. She needs elevation. A consideration could be made for light support such as DEREK bandage, but it would be difficult to apply and maintain, so we favor just elevation and observation. Left upper extremity with doppler proven chronic cephalic DVT. She's on Eliquis. We will continue to support and elevate the extremity, watching for secondary problems. Current Visit: Yes Subjective Patient reports: Present: no new complaints, other (She says she 'just can't tell' when asked if she's having pain today. Denies shortness of breath.) Exam - Constitutional Vitals: Period Temp Pulse Resp BP Sys/Fuchs Pulse Ox Last 24 Hr 97.4 F-99.2 F 109-119 16-20 87-135/51-61 90-97 General appearance: no acute distress - Extremities Exam Extremities exam: Present: other (BLE edema is stable; no weeping today. Right anterior calf with mild abrasion proximally; no redness or drainage. Right forefoot skin looks as if there is demarcation beginning now, and the toes with some superficial skin sloughing. No weeping, no purulence. There is a similar appearance to the left forefoot and toes. ) Results - Labs CBC & BMP: 09/09/16 07:23 09/09/16 07:23 Lab Results: I have reviewed the past 24 hour labs
--- NOTE | 2016-09-09 09:22 | Nephrology Progress Note ---
Nephrology - PN: Subj Interval history: Pt appears in good spirits, smiling. Denies worsening SOB/pain. Appetite poor. Seems a little disoriented. Creatinine improved to 6.0 today. Klebsiella UTI sensitive levofloxacin which she was started on empirically. Exam (PN)-Nephrology - Vital Signs Vital signs: Period Temp Pulse Resp BP Sys/Fuchs Pulse Ox Last 24 Hr 97.4 F-99.2 F 109-119 16-20 87-135/51-72 90-97 - General Appearance General appearance: well-developed, obese EENT: ATNC, PERRL, mucous membranes dry, hearing intact, vision intact Neck: JVD, no thyromegaly Respiratory: no kyphosis, clear Cardiology: no murmurs, no rub, edema Gastrointestinal: normoactive bowel sounds, no tenderness Integumentary: no rash, warm and dry Neurologic: no focal deficit, no asterixis, disoriented Musculoskeletal: no deformities, no erythema Psychiatric: cooperative - Lab 09/09/16 07:23 09/09/16 07:23 Most recent lab results Calcium 8.3 MG/DL (8.5-10.1) L 09/09/16 07:23 Magnesium 2.2 MG/DL (1.8-2.4) 09/09/16 07:23 Assessment and Plan (1) UTI (urinary tract infection) Problem details: Klebsiella and enterococcus, both sensitive to levofloxacin continue 250mg IVPB q48hrs. Status: Acute Current Visit: No (2) Hyperkalemia Problem details: Multifactorial, including dietary noncompliance and metabolic acidosis. Status: Acute Assessment and plan: Decrease D5W +150meq bicarb to 50cc/hr. Strict renal diet. Pt is not a chronic dialysis candidate due to poor predicted one year survival and comorbidities. DNR/DNI/hospice. Conservative measures only. Comfort care. Current Visit: No (3) FIDENCIO (acute kidney injury) Problem details: Stable to improved. Status: Acute Assessment and plan: No indication for dialysis. Pt is not a candidate for chronic dialysis due to predicted poor one year survival and comorbidities. Current Visit: Yes (4) CKD (chronic kidney disease) stage 3, GFR 30-59 ml/min Problem details: Due to presumed diabetic nephropathy. Status: Acute Current Visit: Yes (5) NICM (nonischemic cardiomyopathy) Problem details: Poor predicted one year survival. Status: Chronic Assessment and plan: DNR/DNI Current Visit: Yes (6) Diabetes Status: Chronic Current Visit: Yes Qualifiers: Diabetes mellitus type: type 2
[2016-09-09] MEDS: SODIUM ACETATE IV SCH (09:43)
[2016-09-09] MEDS: DEXTROSE 5% IV SCH (09:43)
[2016-09-09] MEDS: BACITRACIN OINT 0.9 GM PACK TOP SCH (09:43)
[2016-09-09] MEDS: LEVOFLOXACIN INJ 250 MG in PREMIX 1 EACH IV SCH (12:16)
--- NOTE | 2016-09-09 15:57 | Cardiology Progress Note ---
Assessment and Plan (1) Acute renal failure Status: Acute Current Visit: Yes (2) Hyperkalemia Problem details: Multifactorial, including dietary noncompliance and metabolic acidosis. Status: Acute Current Visit: No (3) NICM (nonischemic cardiomyopathy) Problem details: Poor predicted one year survival. Status: Chronic Current Visit: Yes (4) Diabetes Status: Chronic Current Visit: Yes Qualifiers: Diabetes mellitus type: type 2 (5) CHF (congestive heart failure) Status: Acute Assessment and plan: See plan in the HPI Current Visit: Yes Qualifiers: Congestive heart failure type: systolic Congestive heart failure chronicity : acute on chronic Qualified Code(s): I50.23 - Acute on chronic systolic ( congestive) heart failure (6) Hyperlipidemia Status: Chronic Current Visit: Yes (7) Obstructive sleep apnea Status: Chronic Current Visit: Yes (8) Debility Status: Acute Current Visit: No (9) Hernia of abdominal wall Status: Acute Current Visit: No (10) History of automatic internal cardiac defibrillator (AICD) Status: Chronic Current Visit: No (11) UTI (urinary tract infection) Problem details: Klebsiella and enterococcus, both sensitive to levofloxacin continue 250mg IVPB q48hrs. Status: Acute Current Visit: No Cardiology - PN: Subj Interval history: This is a late entry, patient was seen earlier today. She has no new complaints. She denies shortness of breath or chest pain. Impression and plan: 1. Congestive heart failure-while she has peripheral edema, she appears to have been intravascularly depleted and we are continuing with some IV fluid hydration, less than before. She cannot receive an DEREK inhibitor, angiotensin receptor gabriel, due to hyperkalemia now. She is also in acute renal failure. She cannot receive other antihypertensive medications due to hypotension. 2. Nonischemic cardiomypathy-chronic. See discussion above. 3. Acute renal failure-this could be from her hypotension, medications, intravascular volume depletion, low cardiac output. I appreciate Dr. Young expertise. She seems to be improving with some hydration, although creatinine is stable. 4. Hyperkalemia-this has improved with treatment of her acidemia. 5. Hypotension-this may be from her cardiomyopathy and intravascular volume depletion, possibly an element of her urinary tract infection. She is currently stable and improving. 6. Gangrenous toes-Dr. Clay is a dressing and I appreciate his care. Compression dressings are in place. 7. Edema-this is in 3 out of her 4 limbs with seems to be improving. She has a chronic stable left upper extremity DVT. No acute DVTs on vascular ultrasound. This is mildly improved today. 8. Generalized debility-the patient will not be a candidate to return home. Her family is unable to give the care she needs. We will consult psych social worker. We will consult physical therapy. 9. The patient requests to be kept under "DO NOT RESUSCITATE" status. 10. History of deep venous thrombosis-we will need to resume anticoagulation when her renal function has improved. Because of her acute renal failure, her Eliquis has been held and she is only receiving prophylactic Lovenox. 11. Chronic pain-stable. 12. Urinary tract infection-antibiotics been initiated. Exam (Progress Note) - Constitutional Vitals: Period Temp Pulse Resp BP Sys/Fuchs Pulse Ox Last 24 Hr 96.7 F-99.2 F 109-119 16-20 91-135/51-72 90-97 Exam: General appearance: no acute distress, morbidly obese - Head Head exam: Present: normal inspection, normocephalic, atraumatic. Absent: abrasion, contusion, hematoma, laceration - Eye Eye exam: Present: EOMI. Absent: conjunctival injection, nystagmus, periorbital swelling, scleral icterus, laceration to eyelids Pupils: Absent: constricted, dilated, fixed, irregular, unequal - ENT ENT exam: Present: normal exam, normal external ear exam - Neck Neck exam: Present: normal inspection, other (exam is limited by habitus and right internal jugular catheter). Absent: lymphadenopathy, tenderness - Respiratory Respiratory exam: Present: Clear to auscultation bilaterally, other (Oxygen via nasal cannula). Absent: accessory muscle use, chest wall tenderness - Cardiovascular Cardiovascular exam: Present: JVD (unable to assess due to right IJ catheter), regular rate and rhythm. Absent: carotid bruit, diastolic murmur, rubs, systolic murmur - GI/Abdominal GI/Abdominal exam: Present: normal bowel sounds, distended. Absent: firm, guarding, mass, tenderness - Extremities Exam Extremities exam: Present: edema, other (gangrenous toes bilateral lower extremities, 3+ edema in the bilateral lower extremities and left upper extremity), - Back Exam Back exam: Present: other (unable to assess due to patient being obese and weak) - Neurological Exam Neurological exam: Present: alert, oriented X3, somnolent but arousable - Psychiatric Psychiatric exam: Present: flat affect. Absent: agitated, anxious - Skin Skin exam: Present: warm, dry, other (gangrenous toes in the bilateral lower extremities, some ecchymosis in the left upper extremity) Result/EKG - Labs CBC & BMP: 09/09/16 07:23 09/09/16 07:23 Lab Results: I have reviewed the past 24 hour labs Labs: Laboratory Results - last 24 hr 09/09/16 09/09/16 07:23 07:23 WBC 6.8 RBC 4.31 Hgb 13.0 Hct 38.4 MCV 89.1 MCH 30 MCHC 33.9 RDW 16.9 Plt Count 155 D MPV 10.5 Neut % (Auto) 66.1 Lymph % (Auto) 22.4 [place] % (Auto) 9.4 Eos % (Auto) 1.3 Baso % (Auto) 0.4 Neut # (Auto) 4.5 Lymph # (Auto) 1.5 [place] # (Auto) 0.6 Eos # (Auto) 0.1 Baso # (Auto) 0.0 Immature Gran % 0.4 Nucleated RBC % 0.4 Immature Gran # 0.03 Nucleated RBCs # 0.03 Sodium 141 Potassium 4.2 Chloride 101 Carbon Dioxide 25 Anion Gap 19.2 H BUN 85 H Creatinine 6.00 H GFR Calculation 12 BUN/Creatinine Ratio 14.00 Glucose 74 Calculated Osmolality 305.3 H Calcium 8.3 L Magnesium 2.2
[2016-09-09] MEDS: ENOXAPARIN 30 MG/0.3 ML SYRINGE SUBCUT SCH (16:26)
[2016-09-09] MEDS: NORTRIPTYLINE 25 MG CAPSULE PO SCH (21:07)
[2016-09-10] MEDS: LEVOTHYROXINE 75 MCG TABLET PO SCH (06:17)
[2016-09-10] MEDS: DEXTROSE 5% IV SCH (07:05)
[2016-09-10] MEDS: SODIUM ACETATE IV SCH (07:05)
[2016-09-10] MEDS: ESTRADIOL 1 MG TABLET PO SCH (09:35)
[2016-09-10] MEDS: CHOLECALCIFEROL 1,000 UNIT TABLET PO SCH (09:35)
[2016-09-10] MEDS: PANTOPRAZOLE 40 MG TABLET PO SCH (09:35)
[2016-09-10] MEDS: DULoxetine 30 MG CAPSULE PO SCH (09:35)
[2016-09-10] MEDS: POLYETHYLENE GLYCOL POWDER 17 GM PACK PO SCH (09:36)
[2016-09-10] MEDS: FOLIC ACID 1 MG TABLET PO SCH (09:36)
[2016-09-10] MEDS: BACITRACIN OINT 0.9 GM PACK TOP SCH (09:39)
[2016-09-10] MEDS: oxyCODONE IR 5 MG TABLET PO SCH ×4 (09:39→21:25)
[2016-09-10] MEDS: DESITIN 4OZ/NYSTATIN 15 GRAM MIXTURE PASTE TOP SCH ×2 (09:40→21:25)
--- NOTE | 2016-09-10 10:02 | General Surgery Progress Note ---
Assessment and Plan (1) Ischemia of both lower extremities Status: Acute Assessment and plan: Continue local wound care. No obvious infection Current Visit: Yes Subjective Patient reports: Present: no new complaints Exam - Constitutional Vitals: Period Temp Pulse Resp BP Sys/Fuchs Pulse Ox Last 24 Hr 96.7 F-99.1 F 111-117 16-20 94-116/58-80 90-98 - Extremities Exam Extremities exam: Present: other (Bilateral ischemia of several toes with no obvious infection) Results - Labs CBC & BMP: 09/09/16 07:23 09/09/16 07:23
--- NOTE | 2016-09-10 12:24 | Cardiology Progress Note ---
Assessment and Plan (1) Acute renal failure Status: Acute Current Visit: Yes (2) Hyperkalemia Problem details: Multifactorial, including dietary noncompliance and metabolic acidosis. Status: Acute Current Visit: No (3) NICM (nonischemic cardiomyopathy) Problem details: Poor predicted one year survival. Status: Chronic Current Visit: Yes (4) Diabetes Status: Chronic Current Visit: Yes Qualifiers: Diabetes mellitus type: type 2 (5) CHF (congestive heart failure) Status: Acute Assessment and plan: See plan in the HPI Current Visit: Yes Qualifiers: Congestive heart failure type: systolic Congestive heart failure chronicity : acute on chronic Qualified Code(s): I50.23 - Acute on chronic systolic ( congestive) heart failure (6) Hyperlipidemia Status: Chronic Current Visit: Yes (7) Obstructive sleep apnea Status: Chronic Current Visit: Yes (8) Debility Status: Acute Current Visit: No (9) Hernia of abdominal wall Status: Acute Current Visit: No (10) History of automatic internal cardiac defibrillator (AICD) Status: Chronic Current Visit: No (11) UTI (urinary tract infection) Problem details: Klebsiella and enterococcus, both sensitive to levofloxacin continue 250mg IVPB q48hrs. Status: Acute Current Visit: No Cardiology - PN: Subj Interval history: Overall evening was uneventful. She has no acute complaints. She continues to deny chest pain, shortness of breath. She continues to intermittently not seem to make sense. I spoke with the patient's sister for greater than 30 minutes today regarding her condition and expectations. Overall I suspect that we will not be able to improve her generalized condition. I am currently still waiting on her blood work for the day, there was some difficulty obtaining her sample. Impression and plan: 1. Congestive heart failure-while she has peripheral edema, she appears to have been intravascularly depleted and we are continuing with some IV fluid hydration, less than before. She cannot receive an DEREK inhibitor, angiotensin receptor gabriel, due to hyperkalemia now. She is also in acute renal failure. She cannot receive other antihypertensive medications due to hypotension. 2. Nonischemic cardiomypathy-chronic. See discussion above. 3. Acute renal failure-this could be from her hypotension, medications, intravascular volume depletion, low cardiac output. I appreciate Dr. Young expertise. She seems to be improving with some hydration, although creatinine has been stable. 4. Hyperkalemia-this has improved with treatment of her acidemia. 5. Hypotension-this may be from her cardiomyopathy and intravascular volume depletion, possibly an element of her urinary tract infection. She is currently stable and improving. 6. Gangrenous toes-Dr. Clay is a dressing and I appreciate his care. Compression dressings are in place. 7. Edema-this is in 3 out of her 4 limbs with seems to be improving. She has a chronic stable left upper extremity DVT. No acute DVTs on vascular ultrasound. This is mildly improved today. 8. Generalized debility-the patient will not be a candidate to return home. Her family is unable to give the care she needs. We will consult social sciences chair. We will consult physical therapy. 9. The patient requests to be kept under "DO NOT RESUSCITATE" status. 10. History of deep venous thrombosis-we will need to resume anticoagulation when her renal function has improved. Because of her acute renal failure, her Eliquis has been held and she is only receiving prophylactic Lovenox. 11. Chronic pain-stable. 12. Urinary tract infection-antibiotics been initiated. 13: Mental status changes-she reportedly had a stroke, I do not know the details. However, she intermittently seems somewhat nonsensical in her discussions. I am going to go ahead and order a CT scan of the head. Exam (Progress Note) - Constitutional Vitals: Period Temp Pulse Resp BP Sys/Fuchs Pulse Ox Last 24 Hr 97 F-99.1 F 113-117 16-20 85-110/54-80 90-98 Exam: General appearance: no acute distress, morbidly obese - Head Head exam: Present: normal inspection, normocephalic, atraumatic. Absent: abrasion, contusion, hematoma, laceration - Eye Eye exam: Present: EOMI. Absent: conjunctival injection, nystagmus, periorbital swelling, scleral icterus, laceration to eyelids Pupils: Absent: constricted, dilated, fixed, irregular, unequal - ENT ENT exam: Present: normal exam, normal external ear exam - Neck Neck exam: Present: normal inspection, other (exam is limited by habitus and right internal jugular catheter). Absent: lymphadenopathy, tenderness - Respiratory Respiratory exam: Present: Clear to auscultation bilaterally, other (Oxygen via nasal cannula). Absent: accessory muscle use, chest wall tenderness - Cardiovascular Cardiovascular exam: Present: JVD (unable to assess due to right IJ catheter), regular rate and rhythm. Absent: carotid bruit, diastolic murmur, rubs, systolic murmur - GI/Abdominal GI/Abdominal exam: Present: normal bowel sounds, distended. Absent: firm, guarding, mass, tenderness - Extremities Exam Extremities exam: Present: edema, other (gangrenous toes bilateral lower extremities, 3+ edema in the bilateral lower extremities and left upper extremity), - Back Exam Back exam: Present: other (unable to assess due to patient being obese and weak) - Neurological Exam Neurological exam: Present: alert, oriented X3, somnolent but arousable - Psychiatric Psychiatric exam: Present: flat affect. Absent: agitated, anxious - Skin Skin exam: Present: warm, dry, other (gangrenous toes in the bilateral lower extremities, some ecchymosis in the left upper extremity) Result/EKG - Labs CBC & BMP: 09/09/16 07:23 09/09/16 07:23 Lab Results: I have reviewed the past 24 hour labs
--- NOTE | 2016-09-10 13:15 | CT Report ---
CT head/brain wo con INDICATION: Altered mental status/confusion history of stroke The total DLP is 1025 mGy*cm. COMPARISON: Noncontrast CT head dated 07/15/2016 Technique: Serial axial tomographic images of the brain were obtained without the use of intravenous contrast. Dose reduction: This CT exam was performed using one or more of the following dose reduction techniques: Automated exposure control, automated adjustment of the mA and/or KV according to patient size, or use of iterative reconstruction technique. Findings: Prominent focal encephalomalacic changes within the right frontal lobe with volume loss and subcortical white matter hypodensity are most compatible with remote infarct. There is no evidence of hemorrhagic transformation. No additional/new areas of acute infarct are visualized. Mild generalized atrophy is noted with mild prominence of the sulci and cortical volume loss. Periventricular white matter hypodensity changes are noted bilaterally which do not demonstrate mass effect and are nonspecific but favored to represent sequela of chronic microvascular ischemia. There is no evidence of vascular territory infarct or acute intracranial hemorrhage. The londono-white matter differentiation is generally maintained. There is no hydrocephalus. The basilar cisterns are patent. The visualized paranasal sinuses, mastoid air cells and middle ear cavities are predominantly clear. The included orbits and their contents appear within normal limits. The visualized osseous structures and overlying soft tissues of the skull and face demonstrate no acute abnormality. IMPRESSION: No acute intracranial hemorrhage or infarction. 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 PROCEDURE INTERPRETED AT [facility] DEPARTMENT OF RADIOLOGY Final Report Signed by: Dilan Blanca
[2016-09-10 14:03] LABS: Albumin 2.5 G/DL (3.4-5.0); Calcium 8.4 MG/DL (8.5-10.1); Total Protein 5.9 G/DL (6.4-8.3)
[2016-09-10 14:04] LABS: Osmolality,Calculated 305.3 MOS/KG (273-304)
--- NOTE | 2016-09-10 14:25 | Nephrology Progress Note ---
Nephrology - PN: Subj Interval history: Pt pleasantly demented. Disoriented. Creatinine down to 5.5 from 6.0 yesterday, K normal, bicarb 28. Discussed hospice with sister. Exam (PN)-Nephrology - Vital Signs Vital signs: Period Temp Pulse Resp BP Sys/Fuchs Pulse Ox Last 24 Hr 97 F-99.1 F 113-117 16-20 85-110/54-80 90-98 - General Appearance General appearance: obese, chronically ill EENT: ATNC, PERRL, mucous membranes moist, hearing intact, vision intact Neck: JVD, no thyromegaly Respiratory: no kyphosis, clear Cardiology: no murmurs, no rub Gastrointestinal: normoactive bowel sounds, no tenderness, obese Integumentary: no rash, warm and dry Neurologic: no focal deficit, disoriented Musculoskeletal: no deformities, no erythema - Lab 09/09/16 07:23 09/10/16 13:19 Most recent lab results Calcium 8.4 MG/DL (8.5-10.1) L 09/10/16 13:19 Magnesium 2.2 MG/DL (1.8-2.4) 09/09/16 07:23 Assessment and Plan (1) UTI (urinary tract infection) Problem details: Klebsiella and enterococcus, both sensitive to levofloxacin continue 250mg IVPB q48hrs. Status: Acute Current Visit: No (2) Hyperkalemia Problem details: Multifactorial, including dietary noncompliance and metabolic acidosis. Status: Acute Assessment and plan: resolved. Current Visit: No (3) FIDENCIO (acute kidney injury) Problem details: Improved. Status: Acute Assessment and plan: No indication for dialysis. Pt is not a candidate for chronic dialysis due to predicted poor one year survival and comorbidities. Current Visit: Yes (4) CKD (chronic kidney disease) stage 3, GFR 30-59 ml/min Problem details: Due to presumed diabetic nephropathy. Status: Acute Current Visit: Yes (5) NICM (nonischemic cardiomyopathy) Problem details: Poor predicted one year survival. Status: Chronic Assessment and plan: DNR/DNI Current Visit: Yes (6) Diabetes Status: Chronic Current Visit: Yes Qualifiers: Diabetes mellitus type: type 2
[2016-09-10] MEDS: ENOXAPARIN 30 MG/0.3 ML SYRINGE SUBCUT SCH (16:27)
[2016-09-10] MEDS: NORTRIPTYLINE 25 MG CAPSULE PO SCH (21:25)
[2016-09-11] MEDS ORDERED: SODIUM ACETATE IV SCH (02:00)
[2016-09-11] MEDS ORDERED: DEXTROSE 5% IV SCH (02:00)
[2016-09-11] MEDS: LEVOTHYROXINE 75 MCG TABLET PO SCH ×2 (05:46→07:15)
--- NOTE | 2016-09-11 10:21 | Cardiology Progress Note ---
Assessment and Plan (1) Acute renal failure Status: Acute Current Visit: Yes (2) Hyperkalemia Problem details: Multifactorial, including dietary noncompliance and metabolic acidosis. Status: Acute Current Visit: No (3) NICM (nonischemic cardiomyopathy) Problem details: Poor predicted one year survival. Status: Chronic Current Visit: Yes (4) Diabetes Status: Chronic Current Visit: Yes Qualifiers: Diabetes mellitus type: type 2 (5) CHF (congestive heart failure) Status: Acute Assessment and plan: See plan in the HPI Current Visit: Yes Qualifiers: Congestive heart failure type: systolic Congestive heart failure chronicity : acute on chronic Qualified Code(s): I50.23 - Acute on chronic systolic ( congestive) heart failure (6) Hyperlipidemia Status: Chronic Current Visit: Yes (7) Obstructive sleep apnea Status: Chronic Current Visit: Yes (8) Debility Status: Acute Current Visit: No (9) Hernia of abdominal wall Status: Acute Current Visit: No (10) History of automatic internal cardiac defibrillator (AICD) Status: Chronic Current Visit: No (11) UTI (urinary tract infection) Problem details: Klebsiella and enterococcus, both sensitive to levofloxacin continue 250mg IVPB q48hrs. Status: Acute Current Visit: No (12) Tachycardia Status: Acute Current Visit: No Cardiology - PN: Subj Interval history: It Disaster Recovery Manager: Dr. Grande Summary: Patient is a 61-year-old black female whom I have followed for a number of years. She has had long-standing nonischemic cardiomyopathy with a defibrillator, and overall have been reasonably well controlled. Over the last several months she has had a significant subacute decline in her health with serial hospitalizations for various conditions. At this point, she seems to almost have a dementia and is often nonsensical in her discussions although she is clear and easy to understand. She has a very supportive family that is at her bedside and understands her condition. She recently had a stroke. In the past she has had lower extremity deep venous thrombosis, and has also recently had a left upper extremity deep venous thrombosis. She has very gangrenous toes although she does not have significant peripheral vascular disease and the reason for this is not really clear to me, possibly related to her edema. She was admitted to the hospital with "congestive heart failure", but was actually in acute renal failure with a creatinine of 6.7, and her potassium was 6.9. She was mildly hypotensive. We have been treating her for urinary tract infection with some Levaquin, and withheld her antihypertensives. We have also been hydrating her gently, and she has had a very slow and gradual improvement. Evening overall was uneventful. She has no acute complaints and appears to be in good spirits although she is determined to whoop somebody. Her edema has significantly improved in her left upper extremity. She is noted to have become more tachycardic. Impression and plan: 1. Congestive heart failure-while she has peripheral edema, she appears to have been intravascularly depleted and we are continuing with some IV fluid hydration, less than before. She cannot receive an DEREK inhibitor, angiotensin receptor gabriel, due to hyperkalemia now. She is also in acute renal failure. She cannot receive other antihypertensive medications due to hypotension. 2. Nonischemic cardiomypathy-chronic. See discussion above. 3. Acute renal failure-this could be from her hypotension, medications, intravascular volume depletion, low cardiac output. I appreciate Dr. Young expertise. She seems to be improving with some hydration, although creatinine has been stable. 4. Hyperkalemia-this has improved with treatment of her acidemia. 5. Hypotension-this may be from her cardiomyopathy and intravascular volume depletion, possibly an element of her urinary tract infection. She is currently stable and improving. 6. Gangrenous toes-Dr. Clay is a dressing and I appreciate his care. Compression dressings are in place. 7. Edema-this is in 3 out of her 4 limbs with seems to be improving. She has a chronic stable left upper extremity DVT. No acute DVTs on vascular ultrasound. This is mildly improved today. 8. Generalized debility-the patient will not be a candidate to return home. Her family is unable to give the care she needs. We will consult sr. social media & mobile manager. We will consult physical therapy. 9. The patient requests to be kept under "DO NOT RESUSCITATE" status. 10. History of deep venous thrombosis-we will need to resume anticoagulation when her renal function has improved. Because of her acute renal failure, her Eliquis has been held and she is only receiving prophylactic Lovenox. 11. Chronic pain-stable. 12. Urinary tract infection-antibiotics been initiated. 13: Mental status changes-she reportedly had a stroke, I do not know the details. However, she intermittently seems somewhat nonsensical in her discussions. I am going to go ahead and order a CT scan of the head. 14. Tachycardia-this could be because of her emotional state, I will check an ECG. I will initiate some digoxin therapy and we will need to closely monitor her levels given her degree of renal dysfunction. She will probably only need this a few times a week. Exam (Progress Note) - Constitutional Vitals: Period Temp Pulse Resp BP Sys/Fuchs Pulse Ox Last 24 Hr 97 F-99.8 F 117-136 16-20 85-122/54-70 89-95 Exam: General appearance: no acute distress, morbidly obese - Head Head exam: Present: normal inspection, normocephalic, atraumatic. Absent: abrasion, contusion, hematoma, laceration - Eye Eye exam: Present: EOMI. Absent: conjunctival injection, nystagmus, periorbital swelling, scleral icterus, laceration to eyelids Pupils: Absent: constricted, dilated, fixed, irregular, unequal - ENT ENT exam: Present: normal exam, normal external ear exam - Neck Neck exam: Present: normal inspection, other (exam is limited by habitus and right internal jugular catheter). Absent: lymphadenopathy, tenderness - Respiratory Respiratory exam: Present: Clear to auscultation bilaterally, other (Oxygen via nasal cannula). Absent: accessory muscle use, chest wall tenderness - Cardiovascular Cardiovascular exam: Present: JVD (unable to assess due to right IJ catheter), regular rate and rhythm. Absent: carotid bruit, diastolic murmur, rubs, systolic murmur - GI/Abdominal GI/Abdominal exam: Present: normal bowel sounds, distended. Absent: firm, guarding, mass, tenderness - Extremities Exam Extremities exam: Present: edema, other (gangrenous toes bilateral lower extremities, 3+ edema in the bilateral lower extremities and left upper extremity), - Back Exam Back exam: Present: other (unable to assess due to patient being obese and weak) - Neurological Exam Neurological exam: Present: alert, oriented X3, somnolent but arousable - Psychiatric Psychiatric exam: Present: flat affect. Absent: agitated, anxious - Skin Skin exam: Present: warm, dry, other (gangrenous toes in the bilateral lower extremities, some ecchymosis in the left upper extremity) Result/EKG - Labs CBC & BMP: 09/09/16 07:23 09/10/16 13:19 Lab Results: I have reviewed the past 24 hour labs Labs: Laboratory Results - last 24 hr 09/10/16 13:19 Sodium 141 Potassium 4.0 Chloride 99 Carbon Dioxide 28 Anion Gap 18.0 H BUN 78 H Creatinine 5.50 H GFR Calculation 14 BUN/Creatinine Ratio 14.00 Glucose 131 H Calculated Osmolality 305.3 H Calcium 8.4 L Total Bilirubin 1.00 AST 20 ALT 13 Alkaline Phosphatase 135 H Total Protein 5.9 L Albumin 2.5 L Globulin 3.4 Albumin/Globulin Ratio 0.7 L
[2016-09-11 10:55] LABS: Basophils % 0.4 % (0.0-0.8); Eosinophils # 0.1 10*3/uL (0.0-0.87); Eosinophils % 0.9 % (0.00-10.9); Hematocrit 42.5 VOL% (35.7-47.0); Hemoglobin 13.9 GM/DL (12.0-16.0); Immature Granulocytes % 0.5 %; Immature Granulocytes Absolute 0.04 #; Lymphocytes # 1.6 10*3/uL (1.4-4.0); Lymphocytes % 20.7 % (21.3-54.2); Mean Corpuscular HGB Conc 32.7 GM/DL (32-36); Mean Corpuscular Hemoglobin 30 PG (27-34); Mean Corpuscular Volume 92.4 FL (87-102); Mean Platelet Volume 10.6 FL (9.6-12.0); Monocytes # 0.7 10*3/uL (0.11-0.8); Monocytes % 9.5 % (1.7-12.7); NRBC # 0.06 10*3/uL; Neutrophils # 5.3 10*3/uL (1.4-7.4); Platelet Count 164 T/CUMM (130-400); Red Cell Distribution Width 17.1 % (9.3-17.3); White Blood Count 7.8 T/CUMM (4-12)
[2016-09-11] MEDS: oxyCODONE IR 5 MG TABLET PO SCH ×4 (11:07→21:03)
[2016-09-11] MEDS: ALPRAZolam 0.5 MG TABLET PO PRN (11:07)
[2016-09-11] MEDS: DULoxetine 30 MG CAPSULE PO SCH (11:08)
[2016-09-11] MEDS: PANTOPRAZOLE 40 MG TABLET PO SCH (11:11)
[2016-09-11] MEDS: ESTRADIOL 1 MG TABLET PO SCH (11:11)
[2016-09-11] MEDS: DESITIN 4OZ/NYSTATIN 15 GRAM MIXTURE PASTE TOP SCH ×2 (11:12→20:54)
[2016-09-11] MEDS: BACITRACIN OINT 0.9 GM PACK TOP SCH (11:12)
[2016-09-11] MEDS: FOLIC ACID 1 MG TABLET PO SCH (11:12)
[2016-09-11] MEDS: CHOLECALCIFEROL 1,000 UNIT TABLET PO SCH (11:12)
[2016-09-11] MEDS: POLYETHYLENE GLYCOL POWDER 17 GM PACK PO SCH (11:17)
[2016-09-11 11:20] LABS: Albumin 2.6 G/DL (3.4-5.0); Calcium 8.8 MG/DL (8.5-10.1); Osmolality,Calculated 300.4 MOS/KG (273-304); Phosphorous 6.1 MG/DL (2.5-4.9); Potassium 3.6 MMOL/L (3.5-5.1)
[2016-09-11] MEDS: DIGOXIN 0.125 MG TABLET PO SCH (11:22)
[2016-09-11] MEDS: LEVOFLOXACIN INJ 250 MG in PREMIX 1 EACH IV SCH (11:31)
--- NOTE | 2016-09-11 12:20 | Nephrology Progress Note ---
Nephrology - PN: Subj Interval history: Pt acting out overnight, scratched nursing staff. Incident report. Creatinine improved to 4.7 for eGFR 16cc/min, CKD stage 4. K 3.6. No increased FiO2 requirement to maintain SaO2. Exam (PN)-Nephrology - Vital Signs Vital signs: Period Temp Pulse Resp BP Sys/Fuchs Pulse Ox Last 24 Hr 98 F-99.8 F 116-136 16-20 101-122/61-74 89-97 - General Appearance General appearance: well-developed, obese EENT: ATNC, PERRL, mucous membranes moist, hearing intact, vision intact Neck: JVD, no thyromegaly Respiratory: no kyphosis, clear Cardiology: no murmurs, no rub Gastrointestinal: no tenderness, obese Integumentary: no rash, warm and dry Neurologic: no asterixis, disoriented Musculoskeletal: no deformities, no erythema Psychiatric: agitated, cooperative - Lab 09/11/16 10:47 09/11/16 10:47 Most recent lab results Calcium 8.8 MG/DL (8.5-10.1) 09/11/16 10:47 Phosphorus 6.1 MG/DL (2.5-4.9) H 09/11/16 10:47 Magnesium 2.2 MG/DL (1.8-2.4) 09/09/16 07:23 Assessment and Plan (1) UTI (urinary tract infection) Problem details: Klebsiella and enterococcus, both sensitive to levofloxacin continue 250mg IVPB q48hrs. Status: Acute Assessment and plan: Would treat for total of 10d. Switch to po. Current Visit: No (2) FIDENCIO (acute kidney injury) Problem details: Improved. Status: Acute Assessment and plan: No indication for dialysis. Pt is not a candidate for chronic dialysis due to predicted poor one year survival and comorbidities. Current Visit: Yes (3) CKD (chronic kidney disease) stage 3, GFR 30-59 ml/min Problem details: Due to presumed diabetic nephropathy. Status: Acute Assessment and plan: Will sign off case at this time. Please call for any questions or concerns. Recommend hospice care. Current Visit: Yes (4) NICM (nonischemic cardiomyopathy) Problem details: Poor predicted one year survival. Status: Chronic Assessment and plan: DNR/DNI Current Visit: Yes (5) Diabetes Status: Chronic Current Visit: Yes Qualifiers: Diabetes mellitus type: type 2
--- NOTE | 2016-09-11 13:52 | EKG Report ---
Stationary ECG Study [facility] Test Date: 09/11/2016 1:43:49 PM Pat Name: CHRISTOPHER REARDON Department: Room: 278 Gender: F Ambulance Driver: MAYUR : 1955 Requested by: Maggie Grande Order Number: [id number] Reading MD: MAGGIE GRANDE Intervals [place] Rate: 117 P: 83 GA: 188 QRS: 212 QRSD: 124 T: 74 QT: 381 QTc: 451 Interpretive Statements SINUS TACHYCARDIA RIGHT BUNDLE BRANCH BLOCK LEFT POSTERIOR FASCICULAR BLOCK POSSIBLE ANTERIOR MYOCARDIAL INFARCTION, PROBABLY OLD LOW VOLTAGE IN ANTERIOR LEADS INTERPRETATION BASED ON A DEFAULT AGE OF 40 YEARS Electronically Signed On 09-12-16 08:57:18 CDT by MAGGIE GRANDE [email or web address]
[2016-09-11] MEDS: ENOXAPARIN 30 MG/0.3 ML SYRINGE SUBCUT SCH (17:08)
[2016-09-11] MEDS: NORTRIPTYLINE 25 MG CAPSULE PO SCH (20:54)
[2016-09-12] MEDS: LEVOTHYROXINE 75 MCG TABLET PO SCH (06:23)
--- NOTE | 2016-09-12 08:02 | General Surgery Progress Note ---
Assessment and Plan - Time spent with patient Time spent with patient: Less than 30 minutes (1) Edema of both legs Status: Acute Assessment and plan: 09/07/2016. The swelling in the legs persists at this time with the changes on the toes unchanged at this point. Wound care has begun to try to soften and moisturize his up to see what we are dealing with. Vascular studies were completed and they look pretty good showing good indices and good pressures in the feet suggests that these changes may just be due to edema and not necessarily ischemic changes. Time will tell and we will have to just keep a close watch on this process. 09/12/2016 The a left upper extremity looks much better with less edema. There was evidence that somebody attempted a needle stick on that side and the antecubital area which I am discouraging at this point. The lower extremity toes we were able to remove a good bit of the dark tissue which probably was just old blister tissue and once removed the tissue underneath looked pretty normal. Did lose a couple of toenails on the right foot but otherwise the toes all look much improved at this time. I dressing white and quiet to the knee as ordered and I have pointed this out to the nurses. Current Visit: Yes Subjective Patient reports: Present: no new complaints, afebrile, other (Seems extremely confused and somewhat disoriented trying to call 911 from her room phone number) Exam - Constitutional Vitals: Period Temp Pulse Resp BP Sys/Fuchs Pulse Ox Last 24 Hr 97.3 F-98.4 F 106-131 16-20 98-112/55-77 91-97 General appearance: mild distress - Head Head exam: Present: normal inspection - ENT ENT exam: Present: normal exam - Neck Neck exam: Present: normal inspection - Respiratory Respiratory exam: Present: rales, rhonchi - Cardiovascular Cardiovascular exam: Present: RRR - GI/Abdominal GI/Abdominal exam: Present: hypoactive bowel sounds, soft - Extremities Exam Extremities exam: Present: other (Swelling of the left upper extremity is much improved. The changes on the toes of both feet are much better. I was able to remove a good bit of dry dark eschar that was just old skin. Did lose a couple of toenails on the right foot but the other foot looks good with most of the tissue underneath the dark tissue looking pretty normal.) Results - Labs CBC & BMP: 09/11/16 10:47 09/11/16 10:47 Lab Results: I have reviewed the past 24 hour labs
[2016-09-12 08:04] LABS: Albumin 2.5 G/DL (3.4-5.0); Osmolality,Calculated 296.4 MOS/KG (273-304); Phosphorous 5.5 MG/DL (2.5-4.9); Potassium 3.4 MMOL/L (3.5-5.1)
[2016-09-12] MEDS ORDERED: LEVOFLOXACIN 250 MG TABLET PO SCH (09:00)
[2016-09-12] MEDS: CHOLECALCIFEROL 1,000 UNIT TABLET PO SCH (09:38)
[2016-09-12] MEDS: oxyCODONE IR 5 MG TABLET PO SCH ×3 (09:39→18:20)
[2016-09-12] MEDS: FOLIC ACID 1 MG TABLET PO SCH (09:40)
[2016-09-12] MEDS: DULoxetine 30 MG CAPSULE PO SCH (09:40)
[2016-09-12] MEDS: POLYETHYLENE GLYCOL POWDER 17 GM PACK PO SCH (09:41)
[2016-09-12] MEDS: ESTRADIOL 1 MG TABLET PO SCH (09:41)
[2016-09-12] MEDS: PANTOPRAZOLE 40 MG TABLET PO SCH (09:41)
[2016-09-12] MEDS: ALPRAZolam 0.5 MG TABLET PO PRN (09:41)
[2016-09-12] MEDS: DESITIN 4OZ/NYSTATIN 15 GRAM MIXTURE PASTE TOP SCH (09:42)
--- NOTE | 2016-09-12 11:05 | Discharge Summary ---
Hospital Course - Hospital Course Hospital Course: Remotely Operated Vehicle: Dr. Grande Ms. Billingsley is a 61 year old female who is routinely followed by Dr. Grande. She has a history of CHF, nonischemic cardiomyopathy, hyperlipidemia, hypertension, PVD, CVA, NIDDM, arthritis, obstructive sleep apnea, pulmonary embolism, diverticulitis, GERD, and DVT. She reports she uses a CPAP most nights. She had ICD placed by Dr. Dale. She is admitted to the [facility] September 05, 2016 with volume overload. She has had multiple admissions over the past 6 months for acute on chronic congestive heart failure ([place] Heart Association classification 4, EF 15%). At this point she has anasarca. Recent echocardiogram revealed severely dilated left ventricle with ejection fraction 15% and global hypokinesis, grade 3/4 diastolic dysfunction, and four-chamber cardiac enlargement. During the hospital stay, there was little improvement. We did ease some of her shortness of breath that she remains severely edematous. We have held her Lasix during his hospital stay she was intravascularly depleted with hypotension though tissues remained severely edematous. She requested "DO NOT RESUSCITATE" status. At this point, she is asking for discharge. We have arranged for hospice/respite care and, today, she will be discharged. She received five days of Levaquin for UTI, cellulitis. Due to severe renal impairment, her Eliquis will be decreased to 2.5mg orally BID at discharge. Ms. Billingsley and I spent an hour discussing various questions today. She was very lucid. She remembered my son, his horrible accident. She asked personal questions about me and my family and remembered everything as it happened. She wants to be discharged. She understands she is end stage CHF. She continues to acknowledge her "DNR" status. She is not being discharged on an DEREK inhibitor or ARB due to hyperkalemia. She also has acute renal failure, class III-IV. Discharge medications include the following: Cymbalta 60 mg orally daily Vitamin D 5000 units orally daily Bacitracin ointment 1 application topically daily to her feet and arm Milk of magnesia 30 mL p.o. every 4 hours as needed Desitin/nystatin mixture 1 application topically twice daily Digoxin 0.125 mg orally daily docusate sodium 100 mg p.o. twice daily as needed Estradiol tablet 0.5 mg orally daily Folic acid 1 mg orally daily Levothyroxine 75 g 1 p.o. daily Pamelor 50 mm orally each evening Pantoprazole 40 mg orally each evening MiraLAX 17 g orally daily Aquaphor 1 application topically as needed dry skin Oxycodone IR 15 mg orally 4 times daily Lasix 20 mg orally twice daily as needed Blood pressure will allow for introduction of beta-gabriel. - Time spent with patient Time with patient DS: Greater than 30 minutes Diagnosis - Discharge Diagnosis (1) Anasarca Status: Chronic (2) NICM (nonischemic cardiomyopathy) Status: Chronic (3) CHF (congestive heart failure) Status: Acute (4) Diabetes Status: Chronic (5) Hyperlipidemia Status: Chronic (6) Obstructive sleep apnea Status: Chronic (7) History of automatic internal cardiac defibrillator (AICD) Status: Chronic (8) Acute on chronic systolic congestive heart failure, NYHA class 4 Status: Acute (9) Acute on chronic renal failure Status: Acute (10) Left arm cellulitis Status: Acute (11) Debility Status: Acute (12) Ischemia of both lower extremities Status: Acute Specialty Discharge - Follow Up or Referrals Follow up with: Maggie Grande MD [Physician] - (Keep prior appointment) Discharge Plan - Discharge Data Disposition: Hospice - Home Condition at Discharge: Guarded Discharge Diet: heart healthy Activity: other (Per hospice) Hygiene: other (Will require total care form hospice) Weight Bearing at Discharge: other (bedridden) Driving: other (no driving) - Discharge Medications New Digoxin Tab [Lanoxin Tab] 0.125 mg PO DAILY@1300 tablet Skin Healing Oint (Aquaphor) [Aquaphor] 1 applic TOP PRN PRN #0 applic PRN Reason: Dry Skin Apixaban [Eliquis] 2.5 mg PO BID #60 tablet Continue Cholecalciferol (Vitamin D3) [Vitamin D3] 5,000 unit PO DAILY Nortriptyline [Pamelor] 50 mg PO BEDTIME Folic Acid Tab 1 mg PO DAILY Estradiol [Estradiol Tab] 0.5 mg PO DAILY Alum/Mag/Simeth Max Str Liquid [Mylanta Max Strength Liquid] 30 ml PO Q4H PRN #0 PRN Reason: Dyspepsia Docusate Sodium Cap [Colace Cap] 100 mg PO BID PRN #0 capsule PRN Reason: Constipation Levothyroxine Tab [Synthroid Tab] 75 mcg PO DAILY@0700 Furosemide [Lasix] 20 mg PO BID Oxycodone HCl 15 mg PO QID Digoxin Tab [Lanoxin Tab] 0.125 mg PO DAILY@1300 Duloxetine HCl [Duloxetine] 60 mg PO DAILY ALPRAZolam [Xanax] 1 mg PO TID PRN PRN Reason: Anxiety Acetaminophen Tab [Tylenol Tab] 325 mg PO Q4H PRN #0 tablet PRN Reason: fever, headache/body aches Polyethylene Glycol 3350 17 gm PO DAILY Omeprazole 20 mg PO DAILY Discontinued Lisinopril [Prinivil] 10 mg PO DAILY Apixaban [Eliquis] 5 mg PO BID tablet Carvedilol [Coreg] 3.125 mg PO BID - Follow Up or Referral - Forms/Instructions Additional Discharge Instructions: Please have her PCP manage hospice. Also, please list wound care instructions for hospice (per Dr. Clay's orders) Exam - Constitutional Vitals: Period Temp Pulse Resp BP Sys/Fuchs Pulse Ox Last 24 Hr 97.3 F-98.4 F 106-131 16-20 94-112/55-77 91-97 Exam: General: [Anasarca. ] [Pleasant and cooperative. ] [Appears comfortable.] HEENT: [PERRL, normocephalic, atraumatic. Mucous membranes moist. No jaundice noted. Conjunctiva moist and clear, sclerae anicteric] Neck: Unable to assess for JVD due to habitus. No lymphadenopathy noted. No carotid bruit appreciated Cardiac: [Regular rate and rhythm.] [No obvoiuos murmur rub or gallop.] Lungs: [Decreased sounds. No accessory muscle use to assist the respiratory pattern.] Using oxygen intermittently. Abdomen: Soft, bowel sounds normoactive. Nontender and nondistended. No abdominal bruit or thrill noted. No masses noted. Musculoskeletal: No fluid collection. Decreased range of motion is noted. Extremities: Anasarca] Upper extremity pulses 2+. Difficult to assess lower extremity pulses due to edema. Capillary refill less than 3 seconds. Skin: Lower extremity skin changes noted. No skin breakdown appreciated. Neuro: Awake, alert and oriented 3. Moves all extremities without hemiparesis or paralysis. No essential tremor is appreciated. Discharge Results Procedures and tests throughout hospitalization: Pending Orders 09/13/16 04:00 Renal Function Panel IN AM 09/14/16 04:00 Renal Function Panel IN AM Labs on day of discharge: Labs from last 24 hours 09/12/16 09/11/16 09/11/16 07:08 10:47 10:47 WBC 7.8 RBC 4.60 Hgb 13.9 Hct 42.5 MCV 92.4 MCH 30 MCHC 32.7 RDW 17.1 Plt Count 164 MPV 10.6 Neut % (Auto) 68.0 Lymph % (Auto) 20.7 L Jackson % (Auto) 9.5 Eos % (Auto) 0.9 Baso % (Auto) 0.4 Neut # (Auto) 5.3 Lymph # (Auto) 1.6 Jackson # (Auto) 0.7 Eos # (Auto) 0.1 Baso # (Auto) 0.0 Immature Gran % 0.5 Nucleated RBC % 0.8 Immature Gran # 0.04 Nucleated RBCs # 0.06 Sodium 140 140 Potassium 3.4 L 3.6 Chloride 103 102 Carbon Dioxide 24 26 Anion Gap 16.4 H 15.6 H BUN 65 H 73 H Creatinine 4.10 H 4.70 H GFR Calculation 19 16 BUN/Creatinine Ratio 15.00 15.00 Glucose 89 96 Calculated Osmolality 296.4 300.4 Calcium 9.0 8.8 Phosphorus 5.5 H 6.1 H Albumin 2.5 L 2.6 L - Imaging and Cardiology Cardiology Procedure: report reviewed by me DS: Provider Date of admission: 09/06/16 10:09 Primary care physician: Kylah Kim DO Attending physician on admission: Maggie Grande, Consults: 09/05/16 14:24 Consult to Physician [CONS] Routine Comment: pt known to you, bilateral lower extremities. Consulting Provider: José Clay 09/05/16 19:12 Consult to Physician [CONS] Routine Comment: early satiety, patient known to you Consulting Provider: Catarino Pike When should Consulting Provider be notified: In am Consult to Specialist Group: Gastroenterology Person Notified: NICK Date Notified: 09/06/16 Time Notified: 09:00 Consult to Physician [CONS] Stat Comment: Consulting Provider: When should Consulting Provider be notified: In am Consult to Specialist Group: Nephrology When should Consulting Provider be notified: Now 09/05/16 19:39 Consult to Case Mgmt/Social Srvs [CONS] Routine Reason for Case Mgmt/Social Srvs: Discharge Planning 09/07/16 21:24 PT [Consult to Physical Therapy] [CONS] Routine Reason for Physical Therapy: Evaluate and Treat Discharging clinician: Cortney Stone NP Expected date of discharge: 09/12/16
[2016-09-12] MEDS: BACITRACIN OINT 0.9 GM PACK TOP SCH (13:06)
[2016-09-12] MEDS: DIGOXIN 0.125 MG TABLET PO SCH (13:06)
[2016-09-12] MEDS: ENOXAPARIN 30 MG/0.3 ML SYRINGE SUBCUT SCH (18:20)
[2016-09-13 01:20] VITALS: BP 77/61
== END 2016-09-12 23:00 | disposition hospice, home (50) | DRG 291 ==
LOC: N.TELES 13:37 → INTOOBSV 13:37
PROVIDERS: ADMIT Internal Medicine Cardiovascular Disease; ATTEND Internal Medicine Cardiovascular Disease